=== PATIENT | female | born 1965 | race Caucasian/White ===

== ENCOUNTER 2023-04-26 08:08 | Outpatient (OUT) | payer OTHER, SELFPAY ==
--- NOTE | 2023-04-26 08:45 | MM_ITS ---
Patient: EVELIO AGUDELO Exam Date: 04/26/2023 : 1965 Gender:F Ordering : [facility]MIN[facility] Admission #: [id number] Family : Order #: [id number] CLICK HERE TO VIEW EXAM RADIOLOGY REPORT PROCEDURE: MM TOMOSYNTHESIS SCREENING BI COMPARISON: MG MAMM SCREEN 3D ANGUS CAD, 04/20/2022. MG MAMM SCREEN 3D ANGUS CAD, 04/11/2021. INDICATIONS: Screening Calculator Name NCI Breast Cancer Risk Assessment Tool 5 Year Breast Cancer Risk 1.70% Lifetime Breast Cancer Risk 10.40% Personal Breast Cancer No Personal Ovarian Cancer No Treatments None Family Cancers Brother with lung cancer at age 46; Father with brain cancer at age 40; Grandmother-paternal with lung cancer at age ~60; Grandfather-maternal with stomach cancer at age 60. LOCATION: [facility] BREAST COMPOSITION: Heterogeneously dense,which may obscure small masses. FINDINGS: DIAGNOSTIC CATEGORY 1--NEGATIVE. NO CHANGE FROM COMPARISON ASSESSMENT. Scattered benign-appearing calcifications are present. Scattered benign-appearing lymph nodes are present. RIGHT BREAST: No significant suspicious finding. Linear scar markers LEFT BREAST: No significant suspicious finding. RECOMMENDATIONS: ROUTINE MAMMOGRAM AND CLINICAL EVALUATION IN 12 MONTHS. PLEASE NOTE: A NORMAL MAMMOGRAM DOES NOT EXCLUDE THE POSSIBILITY OF BREAST CANCER. A CLINICALLY SUSPICIOUS PALPABLE LUMP SHOULD BE BIOPSIED. Dictated by: Randy Dwyer MD on 04/26/2023 at 12:56 Approved by: Randy Dwyer MD on 04/26/2023 at 12:58
== END 2023-04-26 08:09 | disposition home or self-care (01) ==
LOC: MAMMO 08:08
PROVIDERS: PCP Nurse Practitioner Family; Visit Provider Nurse Practitioner Family
DX: Z12.31 Encounter for screening mammogram for malignant neoplasm of breast (principal); Z80.1 Family history of malignant neoplasm of trachea, bronchus and lung; Z80.0 Family history of malignant neoplasm of digestive organs; Z80.8 Family history of malignant neoplasm of other organs or systems
CPT/HCPCS: 77063; 77067

== ENCOUNTER 2023-11-11 14:52 | Outpatient (OUT) | payer OTHER, SELFPAY ==
--- NOTE | 2023-11-11 15:11 | CT_ITS ---
[address] [address] Patient Name: EVELIO AGUDELO MRN: [id number] date: 1965 Sex: F Assigned Patient Location: CT Current Patient Location: CT Accession/Order Number: [id number] Exam Date: 11/11/2023 15:07 Report Date: 11/11/2023 16:26 At the request of: PADMINI VILLA Procedure: CT chest wo con EXAMINATION: CT chest wo con HISTORY: Nonspecific abnormal finding radiological exam of lung field COMPARISON: 10/24/2022 TECHNIQUE: Multi-planar CT images were created with IV contrast. Axial, Coronal, and Sagittal images. Dose reduction techniques were achieved by using automated exposure control and/or adjustment of mA and/or kV according to patient size and/or use of iterative reconstruction technique. FINDINGS: LUNGS: A few scattered punctate pulmonary nodules stable both in number and size from the prior exam with the largest measuring 7 mm along the right upper major fissure axial image 33. No new pulmonary nodule or mass PLEURA: No mass, effusion, or pneumothorax. VASCULATURE: No abnormality. PRAKASH: No mass or adenopathy. MEDIASTINUM: No mass or adenopathy. CARDIAC: No enlargement or pericardial effusion. Minimal coronary atherosclerosis AORTA: No aneurysm or dissection. CHEST WALL: No mass or axillary adenopathy. BONES: No bone lesion or fracture. LIMITED ABDOMEN: Small to moderate hiatal hernia OTHER: Negative. CT/CT chest wo con IMPRESSION: Stable subcentimeter pulmonary nodules measuring up to 7 mm Electronically authenticated by: BLAISE LUTZ Date: 11/11/2023 16:26
== END 2023-11-11 14:53 | disposition home or self-care (01) ==
LOC: CT 14:52
PROVIDERS: PCP Nurse Practitioner Family; Visit Provider Nurse Practitioner Family
DX: R91.8 Other nonspecific abnormal finding of lung field (principal); R07.89 Other chest pain
CPT/HCPCS: 71250

== ENCOUNTER 2024-02-21 09:13 | Outpatient (OUT) | payer OTHER, SELFPAY ==
[2024-02-21 09:37] LABS: Basophils Absolute Auto 0.1 10^3/uL (0.0-0.1); Basophils Percent Auto 1.1 % (0.2-2.0); Eosinophils Absolute Auto 0.2 10^3/uL (0.0-0.7); Eosinophils Percent Auto 3.3 % (0.9-7.0); Hematocrit 38.6 % (36.0-48.0); Hemoglobin 13.1 g/dL (12.0-16.0); Immature Granulocytes Abs Auto 0.01 10^3/uL (0.00-0.03); Immature Granulocytes Pct Auto 0.2 % (0.0-0.5); Lymphocytes Absolute Auto 1.4 10^3/uL (1.2-3.8); Lymphocytes Percent Auto 30.6 % (20.5-60.0); Mean Corpuscular HGB Conc 33.9 g/dL (29.9-35.2); Mean Corpuscular Hemoglobin 31.2 pg (26.7-34.0); Mean Corpuscular Volume 91.9 fL (81.0-99.0); Mean Platelet Volume 10.5 fL (9.5-13.5); Monocytes Absolute Auto 0.5 10^3/uL (0.3-0.8); Monocytes Percent Auto 11.6 % (1.7-12.0); Neutrophils Absolute Auto 2.4 10^3/uL (1.4-6.5); Neutrophils Percent Auto 53.2 % (43.0-75.0); Platelet Count 250 10^3/uL (150-450); Red Cell Distribution Width 13.2 % (11.0-15.0); White Blood Count 4.6 10^3/uL (4.0-11.0)
[2024-02-21 10:55] LABS: Alanine Aminotransferase 38 U/L (14-59); Albumin Globulin Ratio 1.1; Albumin Level 3.8 g/dL (3.4-5.0); Alkaline Phosphatase 117 U/L (46-116); Anion Gap 15.3; Aspartate Amino Transferase 21 U/L (15-37); BUN Creatinine Ratio 29.8; Bilirubin Total 0.4 mg/dL (0.2-1.0); Calcium 9.6 mg/dL (8.5-10.1); Carbon Dioxide 23.9 mmol/L (21.0-32.0); Chloride 103 mmol/L (98-107); Chol HDL Ratio 2.6; Cholesterol 161 mg/dL (<=200); Estimated GFR (African America >60 (>=60); Estimated GFR (Non-African Ame >60 (>=60); Free T3 3.04 pg/mL (2.18-3.98); Globulin 3.6 g/dL; Glucose 98 mg/dL (74-106); HDL Cholesterol 63 mg/dL (40-60); Potassium 4.2 mmol/L (3.5-5.1); Sodium 138 mmol/L (136-145); Thyroid Stimulating Hormone 1.445 uIU/mL (0.358-3.740); Total Protein 7.4 g/dL (6.4-8.2); Triglycerides 72 mg/dL (<=150); VLDL CHOLESTEROL 14.4 mg/dL
[2024-02-21 11:11] LABS: Estimated Average Glucose 94 mg/dL; Glycohemoglobin A1C 4.9 % (4.5-6.2)
[2024-02-22 04:08] LABS: Insulin 12.9 uIU/mL (2.6-24.9)
== END 2024-02-21 09:14 | disposition home or self-care (01) ==
LOC: LAB 09:15
PROVIDERS: PCP Nurse Practitioner Family; Visit Provider Nurse Practitioner Family
DX: Z00.00 Encounter for general adult medical examination without abnormal findings (principal)
CPT/HCPCS: 36415; 80053; 80061; 83036; 83525; 84436; 84443; 84481; 85025

== ENCOUNTER 2024-02-22 12:57 | Outpatient (REF) | payer OTHER, SELFPAY ==
--- OUTSIDE RECORDS SUMMARY | 2024-02-22 12:58 | XMS_ITS | CCD ---
Author Organization [facility] [employer] ion Partnership [facility] Care Team Providers Care Restaurant Shift Leader Name Role Phone VICENTE BARAKAT H. Referring Unavailable PADMINI WOODARD S Primary Care Unavailable ROSHNI, VICENTE H. Admitting Unavailable ROSHNIVICENTE H. Attending Unavailable ROSHNI, VICENTE H. Referring Unavailable VANCE PADMINI S Primary Care Unavailable PADMINI VILLA Attending Unavailable PADMINI VILLA Consulting Unavailable DAISY, PADMINI Primary Care Unavailable PADMINI VILLA Admitting Unavailable DAISY PADMINI Primary Care Unavailable AARTI ., DR FUNK Attending Unavailable HOY ., DR FUNK Consulting Unavailable HOY ., DR FUNK Admitting Unavailable Octaviano Maria Consulting Unavailable DAISY PADMINI Primary Care Unavailable FRANKLIN, DR BLAISE Lowe Consulting Unavailable PADMINI VILLA Admitting Unavailable PADMINI VILLA Attending Unavailable PADMINI VILLA Consulting Unavailable ROSA CARRION Attending Unavailable ROSA CARRION Referring Unavailable Allergies Allergy Classification Reported Allergen(s) Allergy Type Date of Onset Reaction(s) Facility (1 source) Chlorhexidine Drug Allergy 01-17-2021 [facility] Repository (1 source) traMADol Drug Allergy 05-23-2017 [facility] Repository Problems Active Problems Problem Classification Problem Date Documented Da te Episodic/Chronic Screening and history of mental health and substance abuse codes (4 sources) Personal history of nicotine dependence; Translations: [PERSONAL HISTORY OF NICOTINE DEPEND] Onset: 10-24-2022 Episodic Past or Other Problems Problem Classification Problem Date Documented Da te Episodic/Chronic Other screening for suspected conditions (not mental disorders or infectious disease) (4 sources) Encounter for screening mammogram for malignant neoplasm of breast; Translations: [ENC SCR MAMMO MALIG NEOPLASM BREAST] Onset: 04-20-2022 Episodic Residual codes; unclassified (1 source) Family history of malignant neoplasm of trachea, bronchus and lung; Translations: [FAM HX MALIG NEOPLSM TRACH BRON LNG] Onset: 04-23-2022 Episodic Residual codes; unclassified (1 source) Family history of malignant neoplasm of digestive organs; Translations: [FAM HX MALIG NEOPLASM DIGESTIV ORGN] Onset: 04-23-2022 Episodic Residual codes; unclassified (1 source) Family history of malignant neoplasm of other organs or systems; Translations: [FAM HX MALIG NEOPLASM OTH ORGN/SYS] Onset: 04-23-2022 Episodic Results Test Name Value Interpretation Reference Range Facility INSULINon 11-19-2022 Insulin 18.1 uIU/mL Normal 2.6-24.9 [facility] Comment on above: Performed By: #### I NSULIN #### [facility] Laboratory [address] [address] [address] Jeny Helms CBC AUTO DIFFon 11-17-2022 BASO # 0.1 103/ul Normal 0.0-0.1 [facility] Comment on above: Performed By: #### C BC ####[facility] [address] [address]Dr. Jeny Helms Basophils/100 WBC (Bld) 1.4 % Normal 0.2-2.0 [facility] Comment on above: Performed By: #### C BC ####[facility] [address] [address]DrLilliam Helms EO # 0.2 103/ul Normal 0.0-0.7 [facility] Comment on above: Performed By: #### C BC ####[facility] [address] [address]DrLilliam Helms Eosinophils/100 WBC (Bld) 3.8 % Normal 0.9-7.0 [facility] Comment on above: Performed By: #### C BC ####[facility] [address] [address]DrLilliam Helms Erythrocyte distribution width (RBC) [Ratio] 13.3 % Normal 11.0-15.0 [facility] Comment on above: Performed By: #### C BC ####[facility] [address] [address]Dr. Jeny Helms Hematocrit (Bld) [Volume fraction] 41.2 % Normal 36.0-48.[address] [facility] Comment on above: Performed By: #### C BC ####[facility] [address] [address]Dr. Jeny Helms Hemoglobin (Bld) [Mass/Vol] 13.5 g/dL Normal 12.0-16.0 [facility] Comment on above: Performed By: #### C BC ####[facility] [address] [address]Dr. Jeny Helms IG # 0.01 10e3/ul Normal 0.00-0.03 [facility] Comment on above: Performed By: #### C BC ####[facility] [address] [place], [place] [address]Dr. Jeny Helms IG % 0.2 % Normal 0.0-0.5 [facility] Comment on above: Performed By: #### C BC ####[facility] [address] [address]Dr. Jeny Helms LYMPH # 1.3 103/ul Normal 1.2-3.8 [facility] Comment on above: Performed By: #### C BC ####[facility] [address] [place], [place] [address]Dr. Jeny Helms Lymphocytes/100 WBC (Bld) 30.0 % Normal 20.5-60.0 [facility] Comment on above: Performed By: #### C BC ####[facility] [address] [address]Dr. Yvroselorna Helms MANUAL DIFF REQ NO Normal [facility] Comment on above: Performed By: #### C BC ####[facility] [address] [address]Dr. Yvroselorna Helms MCH (RBC) [Entitic mass] 31.4 pg Normal 26.7-34.0 [facility] Comment on above: Performed By: #### C BC ####[facility] [address] [place], [place] [address]Dr. Jeny Helms MCHC (RBC) [Mass/Vol] 32.8 g/dL Normal 29.9-35.2 [facility] Comment on above: Performed By: #### C BC ####[facility] [address] [address]Dr. Jeny Scooter MCV (RBC) [Entitic vol] 95.8 fL Normal 81.0-99.0 [facility] Comment on above: Performed By: #### C BC ####[facility] [address] [address]Dr. Jeny Scooter MONO # 0.5 103/ul Normal 0.3-0.8 [facility] Comment on above: Performed By: #### C BC ####[facility] [address] [address]Dr. Jeny Helms Monocytes/100 WBC (Bld) 10.6 % Normal 1.7-12.0 [facility] Comment on above: Performed By: #### C BC ####[facility] [address] [place], [place] [address]Dr. Jeny Helms NEUT # 2.4 103/ul Normal 1.4-6.5 [facility] Comment on above: Performed By: #### C BC ####[facility] [address] [address]Dr. Yvroselorna Helms Neutrophils/100 WBC (Bld) 54.0 % Normal 43.0-75.0 [facility] Comment on above: Performed By: #### C BC ####[facility] [address] [address]Dr. Jeny Scooter Platelet mean volume (Bld) [Entitic vol] 10.3 fL Normal 9.5-13.5 [facility] Comment on above: Performed By: #### C BC ####[facility] [address] [address]Dr. Jeny Helms PLT 258 103/ul Normal 150-450 [facility] Comment on above: Performed By: #### C BC ####[facility] [address] [address]Dr. Jeny Helms RBC 4.30 106/ul Normal 4.20-5.40 [facility] Comment on above: Performed By: #### C BC ####[facility] [address] [place], [place] [address]RiLilliam Helms WBC 4.4 103/ul Normal 4.0-11.[address] [facility] Comment on above: Performed By: #### C BC ####[facility] [address] [id number]. Jeny Helms FREE THYROXINE INDEX T7on FTI 2.72 Normal 1.30-4.50 [facility] Comment on above: Performed By: #### L IPID, T7, TSH, CMP #### [facility] [address] [address] [address] Jeny Helms T3U 32.0 % Normal 30.0-39.[address] [facility] Comment on above: Performed By: #### L IPID, T7, TSH, CMP #### [facility] [address] [address] [address] Jeny Helms T4 [Mass/Vol] 8.50 ug/dL Normal 4.80-13.[address] [facility] Comment on above: Performed By: #### L IPID, T7, TSH, CMP #### [facility] [address] [address] [address] Jeny Helms GLYCOHEMOGLOBIN A1Con 2022 ADA RECOMMENDATION SEE BELOW Normal [facility] Comment on above: Result Comment: ADA RECOMMENDED LIMIT 4.0 - 6.0 ADA THERAPEUTIC TARGET < 7.0 ACTION SUGGESTED > 7.0 Performed By: #### A 1C #### [facility] [address] [address] [address] Jeny Helms Glucose [Mass/Vol] 100 mg/dL Normal [facility] Comment on above: Performed By: #### A 1C #### [facility] [address] [address] [address] Jeny Helms HbA1c (Bld) [Mass fraction] 5.1 % Normal 4.5-6.2 [facility] Comment on above: Performed By: #### A 1C #### [facility] [address] [address] [address] Jeny Helms IRONon 11-17-2022 Iron [Mass/Vol] 96.0 ug/dL Normal 50.0-170.0 [facility] Comment on above: Performed By: #### I AUTUMN #### [facility] [address] [address] [address] Jeny Helms LIPID PROFILEon 11-17-2022 CHOL-HDL RATIO NORM SEE BELOW Normal [facility] Comment on above: Result Comment: 3.3 - 4.4 LOW RISK 4.4 - 7.1 AVERAGE RISK 7.1 - 11.0 MODERATE RISK >11.0 HIGH RISK Performed By: #### L IPID, T7, TSH, CMP #### [facility] [address] [address] [address] Jeny Helms Cholesterol [Mass/Vol] 166 mg/dL Normal <=[address] [facility] Comment on above: Performed By: #### L IPID, T7, TSH, CMP #### [facility] [address] [address] [address] Jeny Helms Cholesterol in HDL [Mass/Vol] 61 mg/dL Critically high 40-[address] [facility] Comment on above: Performed By: #### L IPID, T7, TSH, CMP #### [facility] [address] [address] [address] Jeny Helms Cholesterol in LDL [Mass/Vol] 84.0 mg/dL Normal [facility] Comment on above: Performed By: #### L IPID, T7, TSH, CMP #### [facility] [address] [address] [address] Jeny Helms Cholesterol.total/Cho lesterol in HDL [Mass ratio] 2.7 {ratio} Normal [facility] Comment on above: Performed By: #### L IPID, T7, TSH, CMP #### [facility] [address] [address] [address] Jeny Helms HDL NORMAL > or = 60 mg/dl - LOW CARDIOVASCULAR RISK <40 mg/dl - HIGH CARDIOVASCULAR RISK Normal [facility] Comment on above: Performed By: #### L IPID, T7, TSH, CMP #### [facility] [address] [address] [address] Jeny Helms LDL CALC NORMAL SEE BELOW Normal [facility] Comment on above: Result Comment: <100 mg/dl OPTIMAL 100 - 129 mg/dl NEAR OR ABOVE OPTIMAL 130 - 159 mg/dl BORDERLINE HIGH 160 - 189 mg/dl HIGH >190 mg/dl VERY HIGH Performed By: #### L IPID, T7, TSH, CMP #### [facility] [address] [address] [address] Jeny Helms Triglyceride [Mass/Vol] 105 mg/dL Normal <=[address] [facility] Comment on above: Performed By: #### L IPID, T7, TSH, CMP #### [facility] [address] [address] [address] Jeny Helms VLDL CALC 21.0 mg/dL Normal [facility] Comment on above: Performed By: #### L IPID, T7, TSH, CMP #### [facility] [address] [address] [address] Jeny Helms OCC BLD IMMUNO SCREENon 10-21 OCCULT BLOOD Negative Normal NEGATIVE [facility] Comment on above: Performed By: #### O BSCRN #### [facility] [address] [place] [address] Dr. Jeny Helms PROF 14(COMP METB)on 023 Albumin [Mass/Vol] 3.7 g/dL Normal 3.4-5.0 [facility] Comment on above: Performed By: #### L IPID, T7, TSH, CMP #### [facility] [address] [address] [address] Jeny Helms Albumin/Globulin [Mass ratio] 1.0 {ratio} Normal [facility] Comment on above: Performed By: #### L IPID, T7, TSH, CMP #### [facility] [address] [address] [address] Jeny Helms ALP [Catalytic activity/Vol] 119 U/L Critically high 46-[address] [facility] Comment on above: Performed By: #### L IPID, T7, TSH, CMP #### [facility] [address] [place] [address] Dr. Jeny Helms ALT [Catalytic activity/Vol] 43 U/L Normal 14-[address] [facility] Comment on above: Performed By: #### L IPID, T7, TSH, CMP #### [facility] [address] [place] [address] Dr. Jeny Helms Anion gap [Moles/Vol] 15.1 mmol/L Normal [facility] Comment on above: Performed By: #### L IPID, T7, TSH, CMP #### [facility] [address] [place] [address] Dr. Jeny Helms AST [Catalytic activity/Vol] 20 U/L Normal 15-[address] [facility] Comment on above: Performed By: #### L IPID, T7, TSH, CMP #### [facility] [address] [place] [address] Dr. Jeny Helms Bilirubin [Mass/Vol] 0.5 mg/dL Normal 0.2-1.[address] [facility] Comment on above: Performed By: #### L IPID, T7, TSH, CMP #### [facility] [address] [place] [address] Dr. Jeny Helms Calcium [Mass/Vol] 9.3 mg/dL Normal 8.5-10.1 [facility] Comment on above: Performed By: #### L IPID, T7, TSH, CMP #### [facility] [address] [place] [address] Dr. Jeny Helms Chloride [Moles/Vol] 105 mmol/L Normal 98-[address] [facility] Comment on above: Performed By: #### L IPID, T7, TSH, CMP #### [facility] [address] [place] [address] Dr. Jeny Helms CO2 [Moles/Vol] 25.0 mmol/L Normal 21.0-32.0 [facility] Comment on above: Performed By: #### L IPID, T7, TSH, CMP #### [facility] [address] [address] [address] Jeny Helms Creatinine [Mass/Vol] 0.77 mg/dL Normal 0.55-1.[address] [facility] Comment on above: Performed By: #### L IPID, T7, TSH, CMP #### [facility] [address] [address] [address] Jeny Helms EGFR-AF EGYPTIAN >60 Normal >=60 [facility] Comment on above: Performed By: #### L IPID, T7, TSH, CMP #### [facility] [address] [address] [address] Jeny Helms EGFR-NON AF EGYPTIAN >60 Normal >=[address] [facility] Comment on above: Performed By: #### L IPID, T7, TSH, CMP #### [facility] [address] [place] [address] Dr. Jeny Helms Globulin (S) [Mass/Vol] 3.7 g/dL Normal [facility] Comment on above: Performed By: #### L IPID, T7, TSH, CMP #### [facility] [address] [address] [address] Jeny Helms Glucose [Mass/Vol] 103 mg/dL Normal 74-106 [facility] Comment on above: Performed By: #### L IPID, T7, TSH, CMP #### [facility] [address] [address] [address] Jeny Helms Potassium [Moles/Vol] 4.1 mmol/L Normal 3.5-5.1 [facility] Comment on above: Performed By: #### L IPID, T7, TSH, CMP #### [facility] [address] [address] [address] Jeny Helms Protein [Mass/Vol] 7.4 g/dL Normal 6.4-8.2 [facility] Comment on above: Performed By: #### L IPID, T7, TSH, CMP #### [facility] [address] [address] [address] Jeny Helms Sodium [Moles/Vol] 141 mmol/L Normal 136-145 [facility] Comment on above: Performed By: #### L IPID, T7, TSH, CMP #### [facility] [address] [address] [address] Jeny Helms Urea nitrogen [Mass/Vol] 21.0 mg/dL Critically high 7.0-18.[address] [facility] Comment on above: Performed By: #### L IPID, T7, TSH, CMP #### [facility] [address] [address] [address] Jeny Helms Urea nitrogen/Creatinine [Mass ratio] 27.3 mg/mg Normal [facility] Comment on above: Performed By: #### L IPID, T7, TSH, CMP #### [facility] [address] [address] [address] Jeny Helms TSHon 11-17-2022 TSH 1.829 uIU/mL Normal 0.358-3.740 [facility] Comment on above: Performed By: #### L IPID, T7, TSH, CMP #### [facility] [address] [address] [address] LUNG CANCER SCREENINGon 0 10-25-2022 CT LUNG CANCER SCREENING EXAMINATION: CT LUNG CANCER SCREENING HISTORY: Nicotine dependence COMPARISON: No relevant comparison available. TECHNIQUE: Axial, Coronal, and Sagittal images were created without the administration of IV contrast material. Dose reduction techniques were achieved by using automated exposure control and/or adjustment of mA and/or kV according to patient size and/or use of iterative reconstruction technique. FINDINGS: LUNGS: Stable 7 mm thin nodule versus scarring within posterior medial right upper lobe adjacent major fissure, and a few scattered tiny 2 to 3 mm nodules. PLEURA: No mass, effusion, or pneumothorax. VASCULATURE: No abnormality. PRAKASH: No mass or pathologic adenopathy. MEDIASTINUM: No mass or pathologic adenopathy. CARDIAC: No enlargement, pericardial thickening, or significant calcification. AORTA: No aneurysm or dissection. CHEST WALL: No mass or axillary adenopathy BONES: No bone lesion or fracture. LIMITED ABDOMEN: Moderate size hiatal hernia. No suspicious findings. Limited images of the upper abdomen. OTHER: Negative. IMPRESSION: 1. Lung-RADS 2- Benign Appearance or Behavior. Nodules with a very low likelihood of becoming a clinically active cancer due to size or lack of growth. Follow-up CT Chest in 1 year. Electronically authenticated by: OCTAVIANO MARIA Date: 2022-10-25 08:12 Normal [facility] MG MAMM SCREEN 3D ANGUS CADon 04-20-2022 MG MAMM SCREEN 3D ANGUS CAD Patient: EDILMA AGUDELO Exam Date: 04/20/2022 : 1965 Gender:F Ordering : PADMINI VILLA [facility] Admission #: [id number] Family : DR ROSA CARRION Order #: [id number] CLICK HERE TO VIEW EXAM RADIOLOGY REPORT PROCEDURE: MAMMOGRAM SCREENING 3D BILATERAL CAD COMPARISON: MG MAMM SCREEN ANGUS W CAD, 03/24/2020. MG MAMM SCREEN 3D ANGUS CAD, 04/11/2021. INDICATIONS: Screening mammography Calculator Name NCI Breast Cancer Risk Assessment Tool 5 Year Breast Cancer Risk 1.70% Lifetime Breast Cancer Risk 10.70% Personal Breast Cancer No Personal Ovarian Cancer No Treatments None Family Cancers Brother with lung cancer at age 46; Father with brain cancer at age 40; Grandmother-paternal with lung cancer at age 60; Grandfather-maternal with stomach cancer at age 60. LOCATION: [facility] BREAST COMPOSITION: Heterogeneously dense,which may obscure small masses. FINDINGS: DIAGNOSTIC CATEGORY 1--NEGATIVE. NO CHANGE FROM COMPARISON ASSESSMENT. Scattered benign-appearing calcifications are present. Scattered benign-appearing lymph nodes are present. RIGHT BREAST: No significant suspicious finding. LEFT BREAST: No significant suspicious finding. RECOMMENDATIONS: ROUTINE MAMMOGRAM AND CLINICAL EVALUATION IN 12 MONTHS. PLEASE NOTE: A NORMAL MAMMOGRAM DOES NOT EXCLUDE THE POSSIBILITY OF BREAST CANCER. A CLINICALLY SUSPICIOUS PALPABLE LUMP SHOULD BE BIOPSIED. Dictated by: Blaise Dwyer MD on 04/20/2022 at 08:01 Approved by: Blaise Dwyer MD on 04/20/2022 at 08:[address] [facility] Urine Cultureon 05-05-2021 Bacteria identified Cx Nom (U) Reason for Exam Frequent urination;Post-void dribbling No Growth 2 Days PERFORMED BY: [address] [place] [address] PATHOLOGIST PHOTO LAB TECHNICIAN TI ROLDAN M.D. Normal [facility] Comment on above: Performed By: #### C UU #### [facility] [address] FLUORO FOR SURGICAL PROCEDUR ESon 02-05-2019 FLUORO FOR SURGICAL PROCEDURES EXAMINATION: FLUORO FOR SURGICAL PROCEDURES HISTORY: C-Spine . TECHNIQUE: FLUORO FOR SURGICAL PROCEDURES Fluoroscopic time: 15.2 seconds. COMPARISON: Cervical spine MRI 07/08/2018. RESULT: Fluoroscopic images demonstrate interval anterior fusion at C5-C6. No other significant abnormality. ----- IMPRESSION: Intraoperative imaging. Interpreted by: Andrea Medina MD Signed by: Andrea Medina MD 02/05/19 Final result Normal [facility] Surgical Specimenon 02-06-20 Surgical Specimen [facility] [address] [place], [place] [id number] FINAL SURGICAL PATHOLOGY REPORT Patient Name: EDILMA AGUDELO Accession No: [id number] Age Sex: 1965 Location: [facility] Account No: [id number] Collected: 02/05/2019 Med Rec No: [id number] Received: 02/05/2019 Attend Phys: VICENTE BARAKAT Completed: 02/06/2019 Perform Phys: VICENTE BARAKAT FINAL DIAGNOSIS: DISK TISSUE- DISK CARTILAGE WITH MARKED FRAGMENTATION AND BONE WITH MARKED REACTIVE CHANGES. JEMIMA/JEMIMA CLINICAL INFORMATION: Disc herniation, radiculopathy. SPECIMEN: Dis GROSS DESCRIPTION: Labeled Edilma Agudelo and disc tissue . In formalin are four fragments of grayish-white, somewhat scar-like type of fibrocartilage, up to 1.2 cm in length. All are submitted in toto in cassette A1. JEMIMA/LEILANI CPT: 36467 X1 LUCAS MCCARTY M.D. 02/06/2019 Electronically signed out by Page 1 of 1 [facility] Comment on above: Performed By: #### S UR #### [address] [id number] Basic Metabolic Panelon 01-19 Anion gap [Moles/Vol] 22 mmol/L Critically high 9-15 [facility] Comment on above: Performed By: #### B MP #### [facility] [address] [place] [address] Calcium [Mass/Vol] 9.6 mg/dL Normal 8.5-9.9 [facility] Comment on above: Performed By: #### B MP #### [facility] [address] [place] [address] Chloride [Moles/Vol] 101 mmol/L Normal 95-107 [facility] Comment on above: Performed By: #### B MP #### [facility] [address] [place] [address] CO2 [Moles/Vol] 18 mmol/L Low 20-31 [facility] Comment on above: Performed By: #### B MP #### [facility] [address] [place] [address] Creatinine [Mass/Vol] 0.59 mg/dL Normal 0.50-0.90 [facility] Comment on above: Performed By: #### B MP #### [facility] [address] [place] [address] GFR/1.73 sq M predicted among blacks MDRD (S/P/Bld) [Vol rate/Area] mL/min/{1.73_m2} Normal >60 [facility] Comment on above: Result Comment: >60 mL/min/1.73m2 EGFR, calc. for ages 18 and older using the MDRD formula (not corrected for weight), is valid for stable renal function. Performed By: #### B MP #### [facility] [address] [place] [address] GFR/1.73 sq M.predicted MDRD (S/P/Bld) [Vol rate/Area] mL/min/{1.73_m2} Normal >60 [facility] Comment on above: Result Comment: >60 mL/min/1.73m2 EGFR, calc. for ages 18 and older using the MDRD formula (not corrected for weight), is valid for stable renal function. Performed By: #### B MP #### [facility] [address] [place] [address] Glucose [Mass/Vol] 82 mg/dL Normal 70-99 [facility] Comment on above: Performed By: #### B MP #### [facility] [address] [place] [address] Potassium [Moles/Vol] 3.8 mmol/L Normal 3.4-4.9 [facility] Comment on above: Performed By: #### B MP #### [facility] [address] [place] [address] Sodium [Moles/Vol] 141 mmol/L Normal 135-144 [facility] Comment on above: Performed By: #### B MP #### [facility] [address] [place] [address] Urea nitrogen [Mass/Vol] 13 mg/dL Normal 6-20 [facility] Comment on above: Performed By: #### B MP #### [facility] [address] [place] [address] CBC With Platelet No Differe ntialon 01-29-2019 Erythrocyte distribution width (RBC) [Ratio] 13.8 % Normal 11.5-14.5 [facility] Comment on above: Performed By: #### C BCND #### [facility] [address] [place] [address] Hematocrit (Bld) [Volume fraction] 44.5 % Normal 37.0-47.0 [facility] Comment on above: Performed By: #### C BCND #### [facility] [address] [place] [address] Hemoglobin (Bld) [Mass/Vol] 15.3 g/dL Normal 12.0-16.0 [facility] Comment on above: Performed By: #### C BCND #### [facility] [address] [place] [address] MCH (RBC) [Entitic mass] 33.6 pg Critically high 27.0-31.3 [facility] Comment on above: Performed By: #### C BCND #### [facility] [address] [place] [address] MCHC (RBC) [Mass/Vol] 34.4 % Normal 33.0-37.0 [facility] Comment on above: Performed By: #### C BCND #### [facility] [address] [place] [address] MCV (RBC) [Entitic vol] 97.6 fL Normal 82.0-100.0 [facility] Comment on above: Performed By: #### C BCND #### [facility] [address] [place] [address] Platelets (Bld) [#/Vol] 200 10*3/uL Normal 130-400 [facility] Comment on above: Performed By: #### C BCND #### [facility] [address] [place] [address] RBC (Bld) [#/Vol] 4.56 10*6/uL Normal 4.20-5.40 [facility] Comment on above: Performed By: #### C BCND #### [facility] [address] [place] [address] WBC (Bld) [#/Vol] 6.6 10*3/uL Normal 4.8-10.8 [facility] Comment on above: Performed By: #### C BCND #### [facility] [address] [place] [address] Prothrombin Timeon 9 INR Coag (PPP) [Relative time] 0.9 {INR} Normal [facility] Comment on above: Result Comment: Warf erin Therapy INR Therapeutic: 2.0-3.0 With Mechanical Valve: >2.5 Low-intensity Therapeutic Range: 1.5-2.0 Mod-intensity Therapeutic Range: 2.0-3.0 High-intensity Therapeutic Range: 2.5-3.5 HIgh-intensity Therapeutic Range: 3.0-4.0 Common Critical/Alarm Value: 5.0 Common Upper Limit Reported: 10.0 Effective 01/29/2019: Please note reference ranges have changed. Performed By: #### P T #### [facility] [address] [place] [address] PT Coag (PPP) [Time] 12.3 s Normal 12.3-14.9 [facility] Comment on above: Result Comment: Effe ctive 01/29/19 Please note reference ranges have changed. Performed By: #### P T #### [facility] [address] [place] [address] Type and Screen Capture 3 sc rn cellon 01-29-2019 Type and Screen Capture 3 scrn cell PATIENT: MAGNUS Fernando LOC: [facility] BILL# : [id number] : 1965 SEX: F ORDERED BY: COLLEEN Villanueva ORDERED : 01/29/2019 13:45 COLLECTED: 01/29/2019 14:58 ORDER : [id number] RECEIVED : 01/29/2019 14:58 TEST NAME RESULT UNITS RANGES ABN FL ST ABORH Capture B POS F Antibody 3 Cell Scrn Captu NEG F Normal [facility] Comment on above: Performed By: #### T S3C #### [facility] [address] [place] [id number] Encounters Encounter Date Encounter Type Care Provider Facility Start: 09-20-2023 End: 09-20-2023 ambulatory ROSA Hay VISCI Not Available Start: 11-22-2022 Encounter for genera l adult medical examination without abnormal findings PADMINI VILLA [facility] Start: 11-17-2022 End: 11-18-2022 ambulatory PADMINI VILLA Facility:[facility] Start: 11-17-2022 End: 11-18-2022 Encounter for general adult medical examination without abnormal findings PADMINI VILLA Facility:[facility] Start: 10-24-2022 End: 10-25-2022 ambulatory PADMINI VILLA Facility:[facility] Start: 04-20-2022 End: 04-21-2022 ambulatory PADMINI VILLA Facility:[facility] Start: 02-05-2019 End: 02-05-2019 Patient encounter procedure VICENTE Dago. ROSHNI [facility] Start: 01-29-2019 End: 02-03-2019 Patient encounter procedure VICENTE Bri BARAKAT [facility] Procedures Date Procedure Procedure Detail Performing Clinician Start: 02-05-2019 INCENTIVE SPIROMETRY RT VICENTE ROSHNI Start: 02-05-2019 Level iv surg pathol ogy gross&microscopic exam VICENTE ROSHNI Start: 02-05-2019 INCENTIVE SPIROMETRY RT VICENTE ROSHNI Start: 02-05-2019 FLUORO FOR SURGICAL PROCEDURES VICENTE ROSHNI Start: 02-05-2019 DISCHARGE PATIENT VICENTE YO O Start: 02-05-2019 Level iv surg pathol ogy gross&microscopic exam VICENTE ROSHNI Start: 02-05-2019 INCENTIVE SPIROMETRY RT VICENTE ROSHNI Start: 02-05-2019 INITIATE OXYGEN THER APY PROTOCOL VICENTE ROSHNI Start: 02-05-2019 PULSE OXIMETRY SPOT CHECK VICENTE ROSHNI Start: 02-05-2019 Continuous pulse oximetry VICENTE ROSHNI Start: 02-05-2019 INITIATE OXYGEN THER APY PROTOCOL VICENTE ROSHNI Start: 02-05-2019 ASSESS VICENTE ROSHNI Start: 02-05-2019 BEDREST VICENTE ROSHNI Start: 02-05-2019 ENCOURAGE DEEP BREAT CAYETANO AND COUGHING VICENTE ROSHNI Start: 02-05-2019 INCENTIVE SPIROMETRY RT VICENTE ROSHNI Start: 02-05-2019 NEURO/VASCULAR CHECKS B O ROSHNI Start: 02-05-2019 NOTIFY PHYSICIAN (SPECIFY) VICENTE ROSHNI Start: 02-05-2019 NURSING COMMUNICATION B O ROSHNI Start: 02-05-2019 VITAL SIGNS VICENTE ROSHNI Start: 02-05-2019 DIET NPO, NOW VICENTE ROSHNI Start: 02-05-2019 GRADUAL COMPRESSION STOCKINGS (GRECIA) VICENTE ROSHNI Start: 02-05-2019 INITIATE OXYGEN THER APY PROTOCOL VICENTE ROSHNI Start: 02-05-2019 NOTIFY PHYSICIAN (SPECIFY) VICENTE ROSHNI Start: 02-05-2019 PLACE INTERMITTENT P NEUMATIC COMPRESSION DEVICE VICENTE ROSHNI Start: 02-05-2019 PULSE OXIMETRY SPOT CHECK VICENTE ROSHNI Start: 02-05-2019 VITAL SIGNS VICENTE ROSHNI Start: 01-29-2019 Basic metabolic pane l calcium total VICENTE ROSHNI Start: 01-29-2019 Blood count complete automated VICENTE ROSHNI Start: 01-29-2019 Prothrombin time VICENTE ROSHNI Start: 01-29-2019 TYPE AND SCREEN VICENTE ROSHNI Start: 01-29-2019 Ecg routine ecg w/le ast 12 lds w/i&r VICENTE ROSHNI Payers Date Payer Category Payer Unknown [id number] [id number] [id number] 1965 Unknown [id number] 2.16.8 [id number] 1965 Unknown [id number] 2.16.84 [id number] 1965 Unknown [id number] 2.16.84 [id number] 1965 Unknown [id number] 2.16.84 [id number] 1965 Unknown [id number] 2.16.84 [id number] 1959 Unknown [id number] 1959 Unknown [id number] Summary Purpose Family History No Family History Records FoundNo Family History Records FoundNo Family History Records FoundNo Family History Records Found Advance Directives No Advanced Directives Records FoundNo Advanced Directives Records FoundNo Advanced Directives Records FoundNo Advanced Directives Records Found Additional Source Comments INFORMATION SOURCE (unrecogn ized section and content) DATE CREATED AUTHOR 02/06/2019 [facility] DATE CREATED AUTHOR AUTHOR'S ORGANIZ ATION 05/13/2021 [facility] DATE CREATED AUTHOR AUTHOR'S ORGANIZ ATION 11/23/2022 [facility] DATE CREATED AUTHOR AUTHOR'S ORGANIZ ATION 09/22/2023 [facility] [employer] [facility] FOR RECORDS PERTAINING TO PATIENTS WHO ARE OR HAVE BEEN ENROLLED IN A CHEMICAL DEPENDENCY/SUBSTANCEABUSE PROGRAM, SOME INFORMATION MAY BE OMITTED. This clinical summary was aggregated from multiple sources. Caution should be exercised in using it in the provision of clinical care. This summary normalizes information from multiple sources, and as a consequence, information in this document may materially change the coding, format and clinical context of patient data. In addition, data may be omitted in some cases. CLINICAL DECISIONS SHOULD BE BASED ON THE PRIMARY CLINICAL RECORDS. [facility] [email or web address] provides no warranty or guarantee of the accuracy or completeness of information in this document.
[2024-02-22 18:59] LABS: Internal Control Within Normal Limits; Occult Blood Negative
== END 2024-02-22 12:58 | disposition home or self-care (01) ==
LOC: LAB 12:57
PROVIDERS: PCP Nurse Practitioner Family; Visit Provider Nurse Practitioner Family
DX: Z00.00 Encounter for general adult medical examination without abnormal findings (principal)
CPT/HCPCS: G0328

== ENCOUNTER 2024-04-09 15:23 | Outpatient (OUT) | payer OTHER, SELFPAY ==
--- NOTE | 2024-04-09 | XR_ITS ---
[address] [address] Patient Name: EVELIO AGUDELO MRN: [id number] date: 1965 Sex: F Assigned Patient Location: Current Patient Location: Accession/Order Number: [id number] Exam Date: 04/09/2024 15:24 Report Date: 04/10/2024 12:55 At the request of: JOAQUIN MARTINEZ Procedure: XR foot LT min 3V PROCEDURE: XR foot LT min 3V COMPARISON: None. HISTORY: LEFT FOOT PAIN FINDINGS: BONES:No acute fracture or dislocation. Moderate plantar enthesopathic spurring of the calcaneus. Mild degenerative changes SOFT TISSUES:Negative. No visible soft tissue swelling. EFFUSION:None visible. OTHER: Negative. XR/XR foot LT min 3V IMPRESSION: Degenerative changes Electronically authenticated by: BLAISE LUTZ Date: 04/10/2024 12:55
--- OUTSIDE RECORDS SUMMARY | 2024-04-09 15:43 | XMS_ITS | CCD ---
Author Organization [facility] Inform ion Partnership [facility] Care Team Providers Care Alcohol Still Operator Name Role Phone VICENTE BARAKAT H. Referring [...] Consulting Unavailable DAISY PADMINI Primary Care Unavailable BRACKNEY, DR BLAISE Lowe Consulting Unavailable PADMINI VILLA Admitting Unavailable PADMINI VILLA Attending Unavailable PADMINI VILLA Consulting Unavailable ROSA CARRION Attending Unavailable ROSA CARRION Referring Unavailable Allergies Allergy Classification Reported Allergen(s) Allergy Type Date of Onset Reaction(s) Facility (1 source) Chlorhexidine Drug Allergy 01-17-[address] [facility] Repository (1 source) traMADol Drug Allergy 05-23-[address] [facility] Repository Problems Active Problems Problem [...] 11-19-2022 Insulin 18.1 uIU/mL Normal 2.6-24.[address] [facility] Comment on above: Performed By: #### I NSULIN #### [facility] [address] [address] [address] Jeny Helms CBC AUTO DIFFon 11-17-2022 BASO # 0.1 103/ul Normal 0.0-0.[address] [facility] Comment on above: Performed By: #### C BC ####[facility] [address] [address]Dr. Jeny Helms Basophils/100 WBC (Bld) 1.4 % Normal 0.2-2.[address] [facility] Comment on above: Performed By: #### C BC ####[facility] [address] [address]DrLilliam Helms EO # 0.2 103/ul Normal 0.0-0.[address] [facility] Comment on above: Performed By: #### C BC ####[facility] [address] [address]DrLilliam Helms Eosinophils/100 WBC (Bld) 3.8 % Normal 0.9-7.[address] [facility] Comment on above: Performed By: #### C BC ####[facility] [address] [address]DrLilliam Helms Erythrocyte distribution width (RBC) [Ratio] 13.3 % Normal 11.0-15.[address] [facility] Comment on above: Performed By: #### C BC ####[facility] [address] [address]Dr. Jeny Helms Hematocrit (Bld) [Volume fraction] 41.2 % Normal 36.0-48.0 [facility] Comment on above: Performed By: #### C BC ####[facility] [address] [address]Dr. Jeny Helms Hemoglobin (Bld) [Mass/Vol] 13.5 g/dL Normal 12.0-16.[address] [facility] Comment on above: Performed By: #### C BC ####[facility] [address] [address]Dr. Jeny Helms IG # 0.01 10e3/ul Normal 0.00-0.[address] [facility] Comment on above: Performed By: #### C BC ####[facility] [address] [place], [place] [address]Dr. Jeny Helms IG % 0.2 % Normal 0.0-0.[address] [facility] Comment on above: Performed By: #### C BC ####[facility] [address] [address]Dr. Jeny Helms LYMPH # 1.3 103/ul Normal 1.2-3.[address] [facility] Comment on above: Performed By: #### C BC ####[facility] [address] [place], [place] [address]Dr. Jeny Helms Lymphocytes/100 WBC (Bld) 30.0 % Normal 20.5-60.[address] [facility] Comment on above: Performed By: #### C BC ####[facility] [address] [address]Dr. Yvroselorna Helms MANUAL DIFF REQ NO Normal [facility] Comment on above: Performed By: #### C BC ####[facility] [address] [address]Dr. Yvroselorna Helms MCH (RBC) [Entitic mass] 31.4 pg Normal 26.7-34.[address] [facility] Comment on above: Performed By: #### C BC ####[facility] [address] [place], [place] [address]Dr. Jeny Helms MCHC (RBC) [Mass/Vol] 32.8 g/dL Normal 29.9-35.[address] [facility] Comment on above: Performed By: #### C BC ####[facility] [address] [address]Dr. Jeny Scooter MCV (RBC) [Entitic vol] 95.8 fL Normal 81.0-99.[address] [facility] Comment on above: Performed By: #### C BC ####[facility] [address] [address]Dr. Jeny Scooter MONO # 0.5 103/ul Normal 0.3-0.[address] [facility] Comment on above: Performed By: #### C BC ####[facility] [address] [address]Dr. Jeny Helms Monocytes/100 WBC (Bld) 10.6 % Normal 1.7-12.[address] [facility] Comment on above: Performed By: #### C BC ####[facility] [address] [place], [place] [address]Dr. Jeny Helms NEUT # 2.4 103/ul Normal 1.4-6.[address] [facility] Comment on above: Performed By: #### C BC ####[facility] [address] [address]Dr. Yvroselorna Helms Neutrophils/100 WBC (Bld) 54.0 % Normal 43.0-75.[address] [facility] Comment on above: Performed By: #### C BC ####[facility] [address] [address]Dr. Jeny Scooter Platelet mean volume (Bld) [Entitic vol] 10.3 fL Normal 9.5-13.[address] [facility] Comment on above: Performed By: #### C BC ####[facility] [address] [address]Dr. Jeny Helms PLT 258 103/ul Normal 150-[address] [facility] Comment on above: Performed By: #### C BC ####[facility] [address] [address]Dr. Jeny Helms RBC 4.30 106/ul Normal 4.20-5.[address] [facility] Comment on above: Performed By: #### C BC ####[facility] [address] [place], [place] [address]DqLilliam Helms WBC 4.4 103/ul Normal 4.0-11.0 [facility] Comment on above: Performed By: #### C BC ####[facility] [address] [id number]. Jeny Helms FREE THYROXINE INDEX T7on FTI 2.72 Normal 1.30-4.[address] [facility] Comment on above: Performed By: #### L IPID, T7, TSH, CMP #### [facility] [address] [address] [address] Jeny Helms T3U 32.0 % Normal 30.0-39.0 [facility] Comment on above: Performed By: #### L IPID, T7, TSH, CMP #### [facility] [address] [address] [address] Jeny Helms T4 [Mass/Vol] 8.50 ug/dL Normal 4.80-13.90 [facility] Comment on above: Performed By: #### L IPID, T7, TSH, CMP #### [facility] [address] [address] [address] Jeny Helms GLYCOHEMOGLOBIN A1Con 2022 ADA RECOMMENDATION SEE BELOW Normal [facility] Comment on above: Result Comment: ADA RECOMMENDED LIMIT 4.0 - 6.0 ADA THERAPEUTIC TARGET < 7.0 ACTION SUGGESTED > 7.0 Performed By: #### A 1C #### [facility] [address] [address] [address] Jeny Helms Glucose [Mass/Vol] 100 mg/dL Normal [facility] Comment on above: Performed By: #### A 1C #### [facility] [address] [address] [address] Jeny Helms HbA1c (Bld) [Mass fraction] 5.1 % Normal 4.5-6.[address] [facility] Comment on above: Performed By: #### A 1C #### [facility] [address] [address] [address] Jeny Helms IRONon 11-17-2022 Iron [Mass/Vol] 96.0 ug/dL Normal 50.0-170.0 [facility] Comment on above: Performed By: #### I AUTUMN #### [facility] [address] [address] [address] Jeny Helms LIPID PROFILEon 11-17-2022 CHOL-HDL RATIO NORM SEE BELOW Normal [facility] Comment on above: Result Comment: 3.3 - 4.4 LOW RISK 4.4 - 7.1 AVERAGE RISK 7.1 - 11.0 MODERATE RISK >11.0 HIGH RISK Performed By: #### L IPID, T7, TSH, CMP #### [facility] [address] [address] [address] Jeny Helms Cholesterol [Mass/Vol] 166 mg/dL Normal <=200 [facility] Comment on above: Performed By: #### L IPID, T7, TSH, CMP #### [facility] [address] [address] [address] Jeny Helms Cholesterol in HDL [Mass/Vol] 61 mg/dL Critically high 40-60 [facility] Comment on above: Performed By: #### L IPID, T7, TSH, CMP #### [facility] [address] [address] [address] Jeny Helms Cholesterol in LDL [Mass/Vol] 84.0 mg/dL Normal [facility] Comment on above: Performed By: #### L IPID, T7, TSH, CMP #### [facility] [address] [address] [address] Jeny Helms Cholesterol.total/Cho lesterol in HDL [Mass ratio] 2.7 {ratio} Normal [facility] Comment on above: Performed By: #### L IPID, T7, TSH, CMP #### [facility] [address] [address] [address] Jeny Helms HDL NORMAL > or = 60 mg/dl - LOW CARDIOVASCULAR RISK <40 mg/dl - HIGH CARDIOVASCULAR RISK Normal [facility] Comment on above: Performed By: #### L IPID, T7, TSH, CMP #### [facility] [address] [address] [address] Jeny Helms LDL CALC NORMAL SEE BELOW Normal [facility] Comment on above: Result Comment: <100 mg/dl OPTIMAL 100 - 129 mg/dl NEAR OR ABOVE OPTIMAL 130 - 159 mg/dl BORDERLINE HIGH 160 - 189 mg/dl HIGH >190 mg/dl VERY HIGH Performed By: #### L IPID, T7, TSH, CMP #### [facility] [address] [address] [address] Jeny Helms Triglyceride [Mass/Vol] 105 mg/dL Normal <=150 [facility] Comment on above: Performed By: #### L IPID, T7, TSH, CMP #### [facility] [address] [address] [address] Jeny Helms VLDL CALC 21.0 mg/dL Normal [facility] Comment on above: Performed By: #### L IPID, T7, TSH, CMP #### [facility] [address] [address] [address] Jeny Helms OCC BLD IMMUNO SCREENon 10-21 OCCULT BLOOD Negative Normal NEGATIVE [facility] Comment on above: Performed By: #### O BSCRN #### [facility] [address] [place] [address] Dr. Jeny Helms PROF 14(COMP METB)on 023 Albumin [Mass/Vol] 3.7 g/dL Normal 3.4-5.[address] [facility] Comment on above: Performed By: #### L IPID, T7, TSH, CMP #### [facility] [address] [address] [address] Jeny Helms Albumin/Globulin [Mass ratio] 1.0 {ratio} Normal [facility] Comment on above: Performed By: #### L IPID, T7, TSH, CMP #### [facility] [address] [address] [address] Jeny Helms ALP [Catalytic activity/Vol] 119 U/L Critically high 46-116 [facility] Comment on above: Performed By: #### L IPID, T7, TSH, CMP #### [facility] [address] [place] [address] Dr. Jeny Helms ALT [Catalytic activity/Vol] 43 U/L Normal 14-59 [facility] Comment on above: Performed By: #### L IPID, T7, TSH, CMP #### [facility] [address] [place] [address] Dr. Jeny Helms Anion gap [Moles/Vol] 15.1 mmol/L Normal Th [facility] Comment on above: Performed By: #### L IPID, T7, TSH, CMP #### [facility] [address] [place] [address] Dr. Jeny Helms AST [Catalytic activity/Vol] 20 U/L Normal 15-37 [facility] Comment on above: Performed By: #### L IPID, T7, TSH, CMP #### [facility] [address] [place] [address] Dr. Jeny Helms Bilirubin [Mass/Vol] 0.5 mg/dL Normal 0.2-1.0 [facility] Comment on above: Performed By: #### L IPID, T7, TSH, CMP #### [facility] [address] [place] [address] Dr. Jeny Helms Calcium [Mass/Vol] 9.3 mg/dL Normal 8.5-10.[address] [facility] Comment on above: Performed By: #### L IPID, T7, TSH, CMP #### [facility] [address] [place] [address] Dr. Jeny Helms Chloride [Moles/Vol] 105 mmol/L Normal 98-107 [facility] Comment on above: Performed By: #### L IPID, T7, TSH, CMP #### [facility] [address] [place] [address] Dr. Jeny Helms CO2 [Moles/Vol] 25.0 mmol/L Normal 21.0-32.0 [facility] Comment on above: Performed By: #### L IPID, T7, TSH, CMP #### [facility] [address] [address] [address] Jeny Helms Creatinine [Mass/Vol] 0.77 mg/dL Normal 0.55-1.02 [facility] Comment on above: Performed By: #### L IPID, T7, TSH, CMP #### [facility] [address] [address] [address] Jeny Helms EGFR-AF [place]ORE[place] >60 Normal >=60 [facility] Comment on above: Performed By: #### L IPID, T7, TSH, CMP #### [facility] [address] [address] [address] Jeny Helms EGFR-NON AF [place]ORE[place] >60 Normal >=60 [facility] Comment on above: Performed By: #### L IPID, T7, TSH, CMP #### [facility] [address] [place] [address] Dr. Jeny Helms Globulin (S) [Mass/Vol] 3.7 g/dL Normal [facility] Comment on above: Performed By: #### L IPID, T7, TSH, CMP #### [facility] [address] [address] [address] Jeny Helms Glucose [Mass/Vol] 103 mg/dL Normal 74-[address] [facility] Comment on above: Performed By: #### L IPID, T7, TSH, CMP #### [facility] [address] [address] [address] Jeny Helms Potassium [Moles/Vol] 4.1 mmol/L Normal 3.5-5.[address] [facility] Comment on above: Performed By: #### L IPID, T7, TSH, CMP #### [facility] [address] [address] [address] Jeny Helms Protein [Mass/Vol] 7.4 g/dL Normal 6.4-8.2 [facility] Comment on above: Performed By: #### L IPID, T7, TSH, CMP #### [facility] [address] [address] [address] Jeny Helms Sodium [Moles/Vol] 141 mmol/L Normal 136-[address] [facility] Comment on above: Performed By: #### L IPID, T7, TSH, CMP #### [facility] [address] [address] [address] Jeny Helms Urea nitrogen [Mass/Vol] 21.0 mg/dL Critically high 7.0-18.0 [facility] Comment on above: Performed By: #### L IPID, T7, TSH, CMP #### [facility] [address] [address] [address] Jeny Helms Urea nitrogen/Creatinine [Mass ratio] 27.3 mg/mg Normal [facility] Comment on above: Performed By: #### L IPID, T7, TSH, CMP #### [facility] [address] [address] [address] Jeny Helms TSHon 11-17-2022 TSH 1.829 uIU/mL Normal 0.358-3.740 [facility] Comment on above: Performed By: #### L IPID, T7, TSH, CMP #### [facility] [address] [address] [address] LUNG CANCER SCREENINGon [...] OCTAVIANO MARIA Date: 2022-10-25 08:[address] [facility] MG MAMM SCREEN 3D ANGUS CADon 04-20-2022 MG MAMM SCREEN 3D ANGUS CAD Patient: EDILMA AGUDELO Exam Date: 04/20/2022 : 1965 Gender:F Ordering : PADMINI VILLA [facility] Admission #: [id number] Family : DR ROSA CARRION Order #: [id number] CLICK HERE TO VIEW EXAM RADIOLOGY REPORT [...] stomach cancer at age 60. LOCATION: [facility] BREAST COMPOSITION: Heterogeneously dense,which may [...] Dwyer MD on 04/20/2022 at 08:07 Normal [facility] Urine Cultureon 05-05-2021 Bacteria identified Cx Nom (U) Reason for Exam Frequent urination;Post-void dribbling No Growth 2 Days PERFORMED BY: [address] [place] [address] PATHOLOGIST UTILITY REPAIRER TI ROLDAN M.D. Normal [facility] Comment on above: Performed By: #### C UU #### [facility] [address] FLUORO FOR SURGICAL PROCEDUR ESon 02-05-2019 [...] Andrea Medina MD 02/05/19 Final result Normal [facility] Surgical Specimenon 02-06-[address] [facility] [address] [place], [place] [id number] FINAL SURGICAL PATHOLOGY REPORT Patient Name: EDILMA AGUDELO Accession No: [id number] Age Sex: 1965 Location: [facility] Account No: [id number] Collected: 02/05/2019 Med Rec No: [id number] Received: 02/05/2019 Attend Phys: VICENTE BARAKAT Completed: [...] in toto in cassette A1. JEMIMA/LEILANI CPT: 91974 X1 LUCAS MCCARTY M.D. 02/06/2019 Electronically signed out by Page 1 of 1 [facility] Comment on above: Performed By: #### S UR #### [address] [id number] Basic Metabolic Panelon 01-19 Anion gap [Moles/Vol] 22 mmol/L Critically high 9-15 [facility] Comment on above: Performed By: #### B MP #### [facility] [address] [place] [address] Calcium [Mass/Vol] 9.6 mg/dL Normal 8.5-9.9 [facility] Comment on above: Performed By: #### B MP #### [facility] [address] [place] [address] Chloride [Moles/Vol] 101 mmol/L Normal 95-107 [facility] Comment on above: Performed By: #### B MP #### [facility] [address] [place] [address] CO2 [Moles/Vol] 18 mmol/L Low 20-31 [facility] Comment on above: Performed By: #### B MP #### [facility] [address] [place] [address] Creatinine [Mass/Vol] 0.59 mg/dL Normal 0.50-0.90 [facility] Comment on above: Performed By: #### B MP #### [facility] [address] [place] [address] GFR/1.73 sq M predicted among blacks MDRD (S/P/Bld) [Vol rate/Area] mL/min/{1.73_m2} Normal >60 [facility] Comment on above: Result Comment: >60 mL/min/1.73m2 EGFR, calc. for ages 18 and older using the MDRD formula (not corrected for weight), is valid for stable renal function. Performed By: #### B MP #### [facility] [address] [place] [address] GFR/1.73 sq M.predicted MDRD (S/P/Bld) [Vol rate/Area] mL/min/{1.73_m2} Normal >60 [facility] Comment on above: Result Comment: >60 mL/min/1.73m2 EGFR, calc. for ages 18 and older using the MDRD formula (not corrected for weight), is valid for stable renal function. Performed By: #### B MP #### [facility] [address] [place] [address] Glucose [Mass/Vol] 82 mg/dL Normal 70-99 [facility] Comment on above: Performed By: #### B MP #### [facility] [address] [place] [address] Potassium [Moles/Vol] 3.8 mmol/L Normal 3.4-4.9 [facility] Comment on above: Performed By: #### B MP #### [facility] [address] [place] [address] Sodium [Moles/Vol] 141 mmol/L Normal 135-144 [facility] Comment on above: Performed By: #### B MP #### [facility] [address] [place] [address] Urea nitrogen [Mass/Vol] 13 mg/dL Normal 6-20 [facility] Comment on above: Performed By: #### B MP #### [facility] [address] [place] [address] CBC With Platelet No Differe ntialon 01-29-2019 Erythrocyte distribution width (RBC) [Ratio] 13.8 % Normal 11.5-14.5 [facility] Comment on above: Performed By: #### C BCND #### [facility] [address] [place] [address] Hematocrit (Bld) [Volume fraction] 44.5 % Normal 37.0-47.0 [facility] Comment on above: Performed By: #### C BCND #### [facility] [address] [place] [address] Hemoglobin (Bld) [Mass/Vol] 15.3 g/dL Normal 12.0-16.0 [facility] Comment on above: Performed By: #### C BCND #### [facility] [address] [place] [address] MCH (RBC) [Entitic mass] 33.6 pg Critically high 27.0-31.3 [facility] Comment on above: Performed By: #### C BCND #### [facility] [address] [place] [address] MCHC (RBC) [Mass/Vol] 34.4 % Normal 33.0-37.0 [facility] Comment on above: Performed By: #### C BCND #### [facility] [address] [place] [address] MCV (RBC) [Entitic vol] 97.6 fL Normal 82.0-100.0 [facility] Comment on above: Performed By: #### C BCND #### [facility] [address] [place] [address] Platelets (Bld) [#/Vol] 200 10*3/uL Normal 130-400 [facility] Comment on above: Performed By: #### C BCND #### [facility] [address] [place] [address] RBC (Bld) [#/Vol] 4.56 10*6/uL Normal 4.20-5.40 [facility] Comment on above: Performed By: #### C BCND #### [facility] [address] [place] [address] WBC (Bld) [#/Vol] 6.6 10*3/uL Normal 4.8-10.8 [facility] Comment on above: Performed By: #### C BCND #### [facility] [address] [place] [address] Prothrombin Timeon 9 INR Coag (PPP) [Relative time] 0.9 {INR} Normal [facility] Comment on above: Result Comment: Warf erin Therapy INR Therapeutic: 2.0-3.0 With Mechanical Valve: >2.5 Low-intensity Therapeutic Range: 1.5-2.0 Mod-intensity Therapeutic Range: 2.0-3.0 High-intensity Therapeutic Range: 2.5-3.5 HIgh-intensity Therapeutic Range: 3.0-4.0 Common Critical/Alarm Value: 5.0 Common Upper Limit Reported: 10.0 Effective 01/29/2019: Please note reference ranges have changed. Performed By: #### P T #### [facility] [address] [place] [address] PT Coag (PPP) [Time] 12.3 s Normal 12.3-14.9 [facility] Comment on above: Result Comment: Effe ctive 01/29/19 Please note reference ranges have changed. Performed By: #### P T #### [facility] [address] [place] [address] Type and Screen Capture 3 sc rn cellon 01-29-2019 Type and Screen Capture 3 scrn cell PATIENT: MAGNUS Fernando LOC: [facility] BILL# : [id number] : 1965 SEX: F ORDERED BY: COLLEEN Villanueva ORDERED : 01/29/2019 13:45 COLLECTED: 01/29/2019 14:58 ORDER : [id number] RECEIVED : 01/29/2019 14:58 TEST NAME RESULT UNITS RANGES ABN FL [facility] Capture B POS F Antibody 3 Cell Scrn Captu NEG F Normal [facility] Comment on above: Performed By: #### T S3C #### [facility] [address] [place] [id number] Encounters Encounter Date Encounter Type Care Provider Facility Start: 09-20-2023 End: 09-20-2023 ambulatory ROSA Hay [facility]ISCI Not Available Start: 11-22-2022 Encounter for genera l adult medical examination without abnormal findings PADMINI VILLA [facility] Start: 11-17-2022 End: 11-18-2022 ambulatory PADMINI VILLA Facility:[facility] Start: 11-17-2022 End: 11-18-2022 Encounter for general adult medical examination without abnormal findings PADMINI VILLA Facility:[facility] Start: 10-24-2022 End: 10-25-2022 ambulatory PADMINI VILLA Facility:[facility] Start: 04-20-2022 End: 04-21-2022 ambulatory PADMINI VILLA Facility:[facility] Start: 02-05-2019 End: 02-05-2019 Patient encounter procedure VICENTE Dago. ROSHNI [facility] Start: 01-29-2019 End: 02-03-2019 Patient encounter procedure VICENTE Bri BARAKAT [facility] Procedures Date Procedure Procedure Detail Performing Clinician [...] ROSHNI Payers Date Payer Category Payer Unknown [id number] 2.16.8 [id number] 1965 Unknown [id number] 2.16.8 [id number] 1965 Unknown [id number] 2.16.84 [id number] 1965 Unknown [id number] 2.16.84 [id number] 1965 Unknown [id number] 2.16.84 [id number] 1965 Unknown [id number] 2.16.84 [id number] 1959 Unknown [id number] 1959 Unknown [id number] Summary Purpose Family History No Family History Records FoundNo Family History Records FoundNo Family History Records FoundNo Family History Records Found Advance Directives No Advanced Directives Records FoundNo Advanced Directives Records FoundNo Advanced Directives Records FoundNo Advanced Directives Records Found Additional Source Comments INFORMATION SOURCE (unrecogn ized section and content) DATE CREATED AUTHOR 02/06/2019 [facility] DATE CREATED AUTHOR AUTHOR'S ORGANIZ ATION 05/13/2021 [facility] DATE CREATED AUTHOR AUTHOR'S ORGANIZ ATION 11/23/2022 [facility] DATE CREATED AUTHOR AUTHOR'S ORGANIZ ATION 09/22/2023 [facility] FOR RECORDS PERTAINING TO PATIENTS WHO [...] BE BASED ON THE PRIMARY CLINICAL RECORDS. [facility] [employer] provides no warranty or guarantee of the accuracy or completeness of information in this document.
== END 2024-04-09 15:24 | disposition home or self-care (01) ==
LOC: EC 15:23
PROVIDERS: PCP Nurse Practitioner Family; Visit Provider Physician Assistant
DX: M79.672 Pain in left foot (principal); M77.32 Calcaneal spur, left foot
CPT/HCPCS: 73630

== ENCOUNTER 2024-06-05 14:53 | Outpatient (OUT) | payer OTHER, SELFPAY ==
--- NOTE | 2024-06-05 14:58 | XR_ITS ---
[address] [address] Patient Name: EVELIO AGUDELO MRN: [id number] date: 1965 Sex: F Assigned Patient Location: [facility] Current Patient Location: Accession/Order Number: [id number] Exam Date: 06/05/2024 15:05 Report Date: 06/06/2024 06:35 At the request of: PADMINI VILLA Procedure: XR DEXA axial skeleton EXAMINATION: XR DEXA axial skeleton HISTORY: Osteopenia COMPARISON: DEXA bone densitometry 03/21/2018 TECHNIQUE: Dual-energy X-ray absorptiometry (DXA) was performed. FINDINGS: SPINE ANALYSIS: Average bone mineral density is 0.926 g/cm2. T-score (standard deviation relative to young adult mean): -2.1 . -0.7% change since prior study. HIP ANALYSIS: Lowest bone mineral density is within the left femoral neck, 0.72 g/cm2. T-score (standard deviation relative to young adult mean): -1.8 . -1.1% change since prior study. XR/XR DEXA axial skeleton IMPRESSION: World Health Organization Classification: Osteopenia - Moderate Fracture Risk FRAX: Cannot be calculated. Pharmacologic treatment recommendations * No uniform recommendation applies to all patients. Management plans must be individualized. * Consider initiating pharmacologic treatment in postmenopausal women and men >= 50 years of age who have the following: Primary fracture prevention: * T-score <= - 2.5 at the femoral neck, total hip, lumbar spine, 33% radius (some uncertainty with existing data) by DXA. * Low bone mass (osteopenia: T-score between - 1.0 and - 2.5) at the femoral neck or total hip by DXA with a 10-year hip fracture risk >= 3% or a 10-year major osteoporosis-related fracture risk >= 20% (i.e., clinical vertebral, hip, forearm, or proximal humerus) based on the [place]-adapted FRAXregistered model. Secondary fracture prevention: * Fracture of the hip or vertebra regardless of BMD [4, 5]. * Fracture of proximal humerus, pelvis, or distal forearm in persons with low bone mass (osteopenia: T-score between - 1.0 and - 2.5). The decision to treat should be individualized in persons with a fracture of the proximal humerus, pelvis, or distal forearm who do not have osteopenia or low BMD [12, 13]. Miroslava MS, Darci SL, Ralph KL, Sarai EM, Jung KG, AJ, Shelly ES. The clinician's guide to prevention and treatment of osteoporosis. Osteoporos Int. 2021;33(10):2035-7094. doi: 10.1007/p73327-488-34667-i. Epub 2021Nov 16. Erratum in: Osteoporos Int. 2021Feb 15;: PMID: [id number]; PMCID: [id number]. Electronically authenticated by: IJEOMA PATEL Date: 06/06/2024 06:35
--- OUTSIDE RECORDS SUMMARY | 2024-06-05 15:05 | XMS_ITS | CCD ---
Author Organization [facility] Care Team Providers Care Vice President Business Development Name Role Phone ROSHNI, VICENTE H. Referring Unavailable VANCE, TAMMIE S Primary Care Unavailable ROSHNI, VICENTE H. Admitting Unavailable ROSHNI, VICENTE H. Attending Unavailable ROSHNI, VICENTE H. Referring Unavailable VANCE, TAMMIE S Primary Care Unavailable TAMMIE VILLA Attending Unavailable TAMMIE VILLA Consulting Unavailable DAISY, TAMMIE Primary Care Unavailable DAISY, TAMMIE Admitting Unavailable DAISY, TAMMIE Primary Care Unavailable AARTI ., DR FUNK Attending Unavailable DARLEENY ., DR FUNK Consulting Unavailable AARTI ., DR FUNK Admitting Unavailable Octaviano Maria Consulting Unavailable DAISY TAMMIE Primary Care Unavailable [place], DR BLAISE Lowe Consulting Unavailable DAISY, TAMMIE Admitting Unavailable TAMMIE VILLA Attending Unavailable TAMMIE VILLA Consulting Unavailable ROSA CARRION Attending Unavailable ROSA CARRION Referring Unavailable DO Debo Padilla Attending Provider ANTONIO Villa Primary Care Provider Debo Padilla Attending Unavailable Debo Padilla Admitting Unavailable Tammie Villa Primary Care Unavailable Allergies Allergy Classification Reported Allergen(s) Allergy Type Date of Onset Reaction(s) Facility (2 sources) Chlorhexidine Drug Allergy 01-17-2021 [facility] (2 sources) traMADol Drug Allergy 05-23-2017 [facility] (2 sources) Isopropyl Alcohol; Translations: [isopropyl alcohol] Drug Allergy 05-01-2024 [facility] (1 source) Chlorhexidine Drug Allergy 05-01-2024 [facility] (1 source) traMADol Drug Allergy 05-01-2024 [facility] Medications Current Medications Medication Drug Class(es) Dates Sig (Normalized) Sig (Original) atorvastatin 40 mg oral tablet (2 sources) HMG-CoA Reductase Inhibitor Start: 04-17-2024 take 40 mg by mouth once daily Atorvastatin Active 40 MG PO Daily April 17, 2024 12:00am irbesartan 150 mg oral tablet (2 sources) Angiotensin 2 Receptor Erich Start: 04-17-2024 take 150 mg by mouth once daily Irbesartan Active 150 MG PO Daily April 17, 2024 12:00am meloxicam 15 mg oral tablet (2 sources) Nonsteroidal Anti-inflammatory Drug Start: 04-17-2024 take 15 mg by mouth once daily Meloxicam Active 15 MG PO Daily April 17, 2024 12:00am omeprazole 40 mg delayed release oral capsule (3 sources) Proton Pump Inhibitor Start: 04-17-2024 End: 05-01-2024 take 40 mg by mouth once daily Omeprazole Active 40 MG PO Daily May 01, 2024 12:00am Problems Active Problems Problem Classification Problem Date Documented Da te Episodic/Chronic Abdominal pain (3 sources) Indigestion; Translations: [Epigastric pain] 04-17-2024 Episodic Esophageal disorders (2 sources) Gastroesophageal reflux disease; Translations: [Gastro-esophageal reflux disease without esophagitis] 04-17-2024 Chronic Other gastrointestinal disorders (2 sources) Dysphagia; Translations: [Dysphagia, unspecified] 04-17-2024 Episodic Other gastrointestinal disorders (2 sources) Dysphagia, unspecified; Translations: [Dysphagia, unspecified] 04-17-2024 Episodic Other screening for suspected conditions (not mental disorders or infectious disease) (8 sources) Encounter for screening mammogram for malignant neoplasm of breast; Translations: [Patient encounter status] Onset: 2 Episodic Residual codes; unclassified (2 sources) Family history of malignant neoplasm of digestive organs; Translations: [Family history of malignant neoplasm of gastrointestinal tract] Onset: 2 04-17-2024 Episodic Residual codes; unclassified (2 sources) Family history of cancer of colon; Translations: [Family history of malignant neoplasm of digestive organs] 04-17-2024 Episodic Screening and history of mental health and substance abuse codes (4 sources) Personal history of nicotine dependence; Translations: [PERSONAL HISTORY OF NICOTINE DEPEND] Onset: 3 Episodic Past or Other Problems Problem Classification Problem Date Documented Da te Episodic/Chronic Residual codes; unclassified (1 source) Family history of malignant neoplasm of trachea, bronchus and lung; Translations: [FAM HX MALIG NEOPLSM TRACH BRON LNG] Onset: 04-23-2022 Episodic Residual codes; unclassified (1 source) Family history of malignant neoplasm of other organs or systems; Translations: [FAM HX MALIG NEOPLASM OTH ORGN/SYS] Onset: 04-23-2022 Episodic Results Test Name Value Interpretation Reference Range Facility Pathology Request for Lab Co rpon 05-01-2024 Pathology Request for Lab [place] Normal [facility] Comment on above: Order Comment: PATHO LOGY GI SPECIMEN Result Comment: See report. Scanned copy available in EMR. PERFORMED BY: [place] [address] PATHOLOGIST OB/GYN DOCTOR TI ROLDAN M.D. Performed By: #### P ATH TO [facility] #### [address] INSULINon 11-19-2022 Insulin 18.1 uIU/mL Normal 2.6-24.9 [facility] Comment on above: Performed By: #### I NSULIN #### [facility] [address] [address] [address] Jeny Helms CBC AUTO DIFFon 11-17-2022 BASO # 0.1 103/ul Normal 0.0-0.1 [facility] Comment on above: Performed By: #### C BC ####[facility] [address] [address]DrLilliam Helms Basophils/100 WBC (Bld) 1.4 % Normal 0.2-2.0 [facility] Comment on above: Performed By: #### C BC ####[facility] [address] [id number] Helms EO # 0.2 103/ul Normal 0.0-0.7 [facility] Comment on above: Performed By: #### C BC ####[facility] [address] [phone] Helms Eosinophils/100 WBC (Bld) 3.8 % Normal 0.9-7.0 [facility] Comment on above: Performed By: #### C BC ####[facility] [address] [address]Dr. Jeny Helms Erythrocyte distribution width (RBC) [Ratio] 13.3 % Normal 11.0-15.0 [facility] Comment on above: Performed By: #### C BC ####[facility] [address] [address]Dr. Jeny Helms Hematocrit (Bld) [Volume fraction] 41.2 % Normal 36.0-48.0 [facility] Comment on above: Performed By: #### C BC ####[facility] [address] [place], [place] [address]Dr. Jeny Helms Hemoglobin (Bld) [Mass/Vol] 13.5 g/dL Normal 12.0-16.0 [facility] Comment on above: Performed By: #### C BC ####[facility] [address] [place], [place] [address]Dr. Jeny Helms IG # 0.01 10e3/ul Normal 0.00-0.03 [facility] Comment on above: Performed By: #### C BC ####[facility] [address] [place], [place] [address]Dr. Jeny Helms IG % 0.2 % Normal 0.0-0.5 [facility] Comment on above: Performed By: #### C BC ####[facility] [address] [place], [place] [address]Dr. Jeny Hlems LYMPH # 1.3 103/ul Normal 1.2-3.8 [facility] Comment on above: Performed By: #### C BC ####[facility] [address] [place], [place] [address]Dr. Jeny Helms Lymphocytes/100 WBC (Bld) 30.0 % Normal 20.5-60.0 [facility] Comment on above: Performed By: #### C BC ####[facility] [address] [place], [place] [address]Dr. Jeny Helms MANUAL DIFF REQ NO Normal [facility] Comment on above: Performed By: #### C BC ####[facility] [address] [id number]. Jeny Scooter MCH (RBC) [Entitic mass] 31.4 pg Normal 26.7-34.0 [facility] Comment on above: Performed By: #### C BC ####[facility] [address] [phone]. Jeny Scooter MCHC (RBC) [Mass/Vol] 32.8 g/dL Normal 29.9-35.2 [facility] Comment on above: Performed By: #### C BC ####[facility] [address] [address]Dr. Jeny Helms MCV (RBC) [Entitic vol] 95.8 fL Normal 81.0-99.0 [facility] Comment on above: Performed By: #### C BC ####[facility] [address] [place], [place] [address]Dr. Jeny Helms MONO # 0.5 103/ul Normal 0.3-0.8 [facility] Comment on above: Performed By: #### C BC ####[facility] [address] [place], [place] [address]Dr. Jeny Helms Monocytes/100 WBC (Bld) 10.6 % Normal 1.7-12.0 [facility] Comment on above: Performed By: #### C BC ####[facility] [address] [place], [place] [address]Dr. Jeny Helms NEUT # 2.4 103/ul Normal 1.4-6.5 [facility] Comment on above: Performed By: #### C BC ####[facility] [address] [place], [place] [address]DrLilliam Helms Neutrophils/100 WBC (Bld) 54.0 % Normal 43.0-75.0 [facility] Comment on above: Performed By: #### C BC ####[facility] [address] [place], [place] [address]DrLilliam Helms Platelet mean volume (Bld) [Entitic vol] 10.3 fL Normal 9.5-13.5 [facility] Comment on above: Performed By: #### C BC ####[facility] [address] [id number]. Jeny Helms PLT 258 103/ul Normal 150-450 [facility] Comment on above: Performed By: #### C BC ####[facility] [address] [phone]. Jeny Helms RBC 4.30 106/ul Normal 4.20-5.40 [facility] Comment on above: Performed By: #### C BC ####[facility] [address] [phone]. Jeny Helms WBC 4.4 103/ul Normal 4.0-11.0 [facility] Comment on above: Performed By: #### C BC ####[facility] [address] [id number]. Jeny Helms FREE THYROXINE INDEX T7on FTI 2.72 Normal 1.30-4.50 [facility] Comment on above: Performed By: #### L IPID, T7, TSH, CMP #### [facility] [address] [address] [address] Jeny Helms T3U 32.0 % Normal 30.0-39.0 [facility] Comment on above: Performed By: #### L IPID, T7, TSH, CMP #### [facility] [address] [address] [address] Jeny Helms T4 [Mass/Vol] 8.50 ug/dL Normal 4.80-13.90 [facility] Comment on above: Performed By: #### L IPID, T7, TSH, CMP #### [facility] [address] [address] [address] Jeny Helms GLYCOHEMOGLOBIN A1Con 2022 ADA RECOMMENDATION SEE BELOW Normal [facility] Comment on above: Result Comment: ADA RECOMMENDED LIMIT 4.0 - 6.0 ADA THERAPEUTIC TARGET < 7.0 ACTION SUGGESTED > 7.0 Performed By: #### A 1C #### [facility] [address] [address] [address] Jeny Helms Glucose [Mass/Vol] 100 mg/dL Normal [facility] Comment on above: Performed By: #### A 1C #### [facility] [address] [place] [address] Dr. eJny Helms HbA1c (Bld) [Mass fraction] 5.1 % Normal 4.5-6.2 [facility] Comment on above: Performed By: #### A 1C #### [facility] [address] [place] [address] Dr. Jeny Helms IRONon 11-17-2022 Iron [Mass/Vol] 96.0 ug/dL Normal 50.0-170.0 [facility] Comment on above: Performed By: #### I AUTUMN #### [facility] [address] [place] [address] Dr. Jeny Helms LIPID PROFILEon 11-17-2022 CHOL-HDL RATIO NORM SEE BELOW Normal [facility] Comment on above: Result Comment: 3.3 - 4.4 LOW RISK 4.4 - 7.1 AVERAGE RISK 7.1 - 11.0 MODERATE RISK >11.0 HIGH RISK Performed By: #### L IPID, T7, TSH, CMP #### [facility] [address] [place] [address] Dr. Jeny Helms Cholesterol [Mass/Vol] 166 mg/dL Normal <=200 [facility] Comment on above: Performed By: #### L IPID, T7, TSH, CMP #### [facility] [address] [address] [address] Jeny Helms Cholesterol in HDL [Mass/Vol] 61 mg/dL Critically high 40-60 [facility] Comment on above: Performed By: #### L IPID, T7, TSH, CMP #### [facility] [address] [address] [address] Jeny Helms Cholesterol in LDL [Mass/Vol] 84.0 mg/dL Normal [facility] Comment on above: Performed By: #### L IPID, T7, TSH, CMP #### [facility] [address] [address] [address] Jeny Helms Cholesterol.total/Cho lesterol in HDL [Mass ratio] 2.7 {ratio} Normal [facility] Comment on above: Performed By: #### L IPID, T7, TSH, CMP #### [facility] [address] [address] [address] Jeny Helms HDL NORMAL > or = 60 mg/dl - LOW CARDIOVASCULAR RISK <40 mg/dl - HIGH CARDIOVASCULAR RISK Normal [facility] Comment on above: Performed By: #### L IPID, T7, TSH, CMP #### [facility] [address] [address] [address] Jeny Helms LDL CALC NORMAL SEE BELOW Normal [facility] Comment on above: Result Comment: <100 mg/dl OPTIMAL 100 - 129 mg/dl NEAR OR ABOVE OPTIMAL 130 - 159 mg/dl BORDERLINE HIGH 160 - 189 mg/dl HIGH >190 mg/dl VERY HIGH Performed By: #### L IPID, T7, TSH, CMP #### [facility] [address] [address] [address] Jeny Helms Triglyceride [Mass/Vol] 105 mg/dL Normal <=150 [facility] Comment on above: Performed By: #### L IPID, T7, TSH, CMP #### [facility] [address] [address] [address] Jeny Helms VLDL CALC 21.0 mg/dL Normal [facility] Comment on above: Performed By: #### L IPID, T7, TSH, CMP #### [facility] [address] [address] [address] Jeny Helms OCC BLD IMMUNO SCREENon 10-21 OCCULT BLOOD Negative Normal NEGATIVE [facility] Comment on above: Performed By: #### O BSCRN #### [facility] [address] [place] [address] Dr. Jeny Helms PROF 14(COMP METB)on 023 Albumin [Mass/Vol] 3.7 g/dL Normal 3.4-5.0 [facility] Comment on above: Performed By: #### L IPID, T7, TSH, CMP #### [facility] [address] [address] [address] Jeny Helms Albumin/Globulin [Mass ratio] 1.0 {ratio} Normal [facility] Comment on above: Performed By: #### L IPID, T7, TSH, CMP #### [facility] [address] [address] [address] Jeny Hemls ALP [Catalytic activity/Vol] 119 U/L Critically high 46-116 [facility] Comment on above: Performed By: #### L IPID, T7, TSH, CMP #### [facility] [address] [address] [address] Jeny Helms ALT [Catalytic activity/Vol] 43 U/L Normal 14-59 [facility] Comment on above: Performed By: #### L IPID, T7, TSH, CMP #### [facility] [address] [place] [address] Dr. Jeny Helms Anion gap [Moles/Vol] 15.1 mmol/L Normal [facility] Comment on above: Performed By: #### L IPID, T7, TSH, CMP #### [facility] [address] [place] [address] Dr. Jeny Helms AST [Catalytic activity/Vol] 20 U/L Normal 15-37 [facility] Comment on above: Performed By: #### L IPID, T7, TSH, CMP #### [facility] [address] [address] [address] Jeny Helms Bilirubin [Mass/Vol] 0.5 mg/dL Normal 0.2-1.0 [facility] Comment on above: Performed By: #### L IPID, T7, TSH, CMP #### [facility] [address] [place] [address] Dr. Jeny Helms Calcium [Mass/Vol] 9.3 mg/dL Normal 8.5-10.1 [facility] Comment on above: Performed By: #### L IPID, T7, TSH, CMP #### [facility] [address] [address] [address] Jeny Helms Chloride [Moles/Vol] 105 mmol/L Normal 98-107 [facility] Comment on above: Performed By: #### L IPID, T7, TSH, CMP #### [facility] [address] [address] [address] Jeny Helms CO2 [Moles/Vol] 25.0 mmol/L Normal 21.0-32.[address] [facility] Comment on above: Performed By: #### L IPID, T7, TSH, CMP #### [facility] [address] [place] [address] Dr. Jeny Helms Creatinine [Mass/Vol] 0.77 mg/dL Normal 0.55-1.02 [facility] Comment on above: Performed By: #### L IPID, T7, TSH, CMP #### [facility] [address] [place] [address] Dr. Jeny Helms EGFR-AF TAIWANESE >60 Normal >=60 [facility] Comment on above: Performed By: #### L IPID, T7, TSH, CMP #### [facility] [address] [place] [address] Dr. Jeny Helms EGFR-NON AF TAIWANESE >60 Normal >=60 [facility] Comment on above: Performed By: #### L IPID, T7, TSH, CMP #### [facility] [address] [place] [address] Dr. Jeny Helms Globulin (S) [Mass/Vol] 3.7 g/dL Normal [facility] Comment on above: Performed By: #### L IPID, T7, TSH, CMP #### [facility] [address] [place] [address] Dr. Jeny Helms Glucose [Mass/Vol] 103 mg/dL Normal 74-106 [facility] Comment on above: Performed By: #### L IPID, T7, TSH, CMP #### [facility] [address] [place] [address] Dr. Jeny Helms Potassium [Moles/Vol] 4.1 mmol/L Normal 3.5-5.1 [facility] Comment on above: Performed By: #### L IPID, T7, TSH, CMP #### [facility] [address] [address] [address] Jeny Helms Protein [Mass/Vol] 7.4 g/dL Normal 6.4-8.2 [facility] Comment on above: Performed By: #### L IPID, T7, TSH, CMP #### [facility] [address] [address] [address] Jeny Helms Sodium [Moles/Vol] 141 mmol/L Normal 136-145 [facility] Comment on above: Performed By: #### L IPID, T7, TSH, CMP #### [facility] [address] [address] [address] Jeny Helms Urea nitrogen [Mass/Vol] 21.0 mg/dL Critically high 7.0-18.0 [facility] Comment on above: Performed By: #### L IPID, T7, TSH, CMP #### [facility] [address] [place] [address] Dr. Jeny Helms Urea nitrogen/Creatinine [Mass ratio] 27.3 mg/mg Normal [facility] Comment on above: Performed By: #### L IPID, T7, TSH, CMP #### [facility] [address] [address] [address] Jeny Helms TSHon 11-17-2022 TSH 1.829 uIU/mL Normal 0.358-3.740 [facility] Comment on above: Performed By: #### L IPID, T7, TSH, CMP #### [facility] [address] [place] [address] LUNG CANCER SCREENINGon [...] OCTAVIANO MARIA Date: 2022-10-25 08:12 Normal [facility] MAMM SCREEN 3D ANGUS CADon 04-20-2022 MG MAMM SCREEN 3D ANGUS CAD Patient: EDILMA AGUDELO Exam Date: 04/20/2022 : 1965 Gender:F Ordering : TAMMIE VILLA [facility] Admission #: [id number] Family : DR ROSA CARRION Order #: [id number] CLICK HERE TO VIEW EXAM RADIOLOGY REPORT [...] stomach cancer at age 60. LOCATION: [facility] BREAST COMPOSITION: Heterogeneously dense,which may obscure small [...] Dwyer MD on 04/20/2022 at 08:07 [facility] FLUORO FOR SURGICAL PROCEDUR ESon 02-05-2019 FLUORO FOR SURGICAL PROCEDURES EXAMINATION: FLUORO FOR SURGICAL PROCEDURES HISTORY: C-Spine . TECHNIQUE: FLUORO FOR SURGICAL PROCEDURES Fluoroscopic time: 15.2 seconds. COMPARISON: Cervical spine MRI 07/08/2018. RESULT: Fluoroscopic images demonstrate interval anterior fusion at C5-C6. No other significant abnormality. ----- IMPRESSION: Intraoperative imaging. Interpreted by: Andrea Medina MD Signed by: Andrea Medina MD 02/05/19 Final result Normal [facility] Surgical Specimenon 02-06-20 Surgical Specimen [facility] [address] [place] [address] FINAL SURGICAL PATHOLOGY REPORT Patient Name: EDILMA AGUDELO Accession No: [id number] Age Sex: 1965 [facility] No: [id number] Collected: 02/05/2019 Med Rec No: [id number] Received: 02/05/2019 Attend Phys: VICENTE BARAKAT Completed: [...] in toto in cassette A1. JEMIMA/LEILANI CPT: 40855 X1 LUCAS MCCARTY M.D. 02/06/2019 Electronically signed out by Page 1 of 1 [facility] Comment on above: Performed By: #### S UR #### [address] [address] Basic Metabolic Panelon 01-19 Anion gap [Moles/Vol] 22 mmol/L Critically high 9-15 [facility] Comment on above: Performed By: #### B MP #### [facility] [address] [place] [address] Calcium [Mass/Vol] 9.6 mg/dL Normal 8.5-9.9 [facility] Comment on above: Performed By: #### B MP #### [facility] [address] [place] [address] Chloride [Moles/Vol] 101 mmol/L Normal 95-107 [facility] Comment on above: Performed By: #### B MP #### [facility] [address] [place] [address] CO2 [Moles/Vol] 18 mmol/L Low 20-31 [facility] Comment on above: Performed By: #### B MP #### [facility] [address] [place] [address] Creatinine [Mass/Vol] 0.59 mg/dL Normal 0.50-0.90 [facility] Comment on above: Performed By: #### B MP #### [facility] [address] [place] [address] GFR/1.73 sq M predicted among blacks MDRD (S/P/Bld) [Vol rate/Area] mL/min/{1.73_m2} Normal >60 [facility] Comment on above: Result Comment: >60 mL/min/1.73m2 EGFR, calc. for ages 18 and older using the MDRD formula (not corrected for weight), is valid for stable renal function. Performed By: #### B MP #### [facility] [address] [place] [address] GFR/1.73 sq M.predicted MDRD (S/P/Bld) [Vol rate/Area] mL/min/{1.73_m2} Normal >60 [facility] Comment on above: Result Comment: >60 mL/min/1.73m2 EGFR, calc. for ages 18 and older using the MDRD formula (not corrected for weight), is valid for stable renal function. Performed By: #### B MP #### [facility] [address] [place] [address] Glucose [Mass/Vol] 82 mg/dL Normal 70-99 [facility] Comment on above: Performed By: #### B MP #### [facility] [address] [place] [address] Potassium [Moles/Vol] 3.8 mmol/L Normal 3.4-4.9 [facility] Comment on above: Performed By: #### B MP #### [facility] [address] [place] [address] Sodium [Moles/Vol] 141 mmol/L Normal 135-144 [facility] Comment on above: Performed By: #### B MP #### [facility] [address] [place] [address] Urea nitrogen [Mass/Vol] 13 mg/dL Normal 6-20 [facility] Comment on above: Performed By: #### B MP #### [facility] [address] [place] [address] CBC With Platelet No Differe ntialon 01-29-2019 Erythrocyte distribution width (RBC) [Ratio] 13.8 % Normal 11.5-14.5 [facility] Comment on above: Performed By: #### C BCND #### [facility] [address] [place] [address] Hematocrit (Bld) [Volume fraction] 44.5 % Normal 37.0-47.0 [facility] Comment on above: Performed By: #### C BCND #### [facility] [address] [place] [address] Hemoglobin (Bld) [Mass/Vol] 15.3 g/dL Normal 12.0-16.0 [facility] Comment on above: Performed By: #### C BCND #### [facility] [address] [place] [address] MCH (RBC) [Entitic mass] 33.6 pg Critically high 27.0-31.3 [facility] Comment on above: Performed By: #### C BCND #### [facility] [address] [place] [address] MCHC (RBC) [Mass/Vol] 34.4 % Normal 33.0-37.0 [facility] Comment on above: Performed By: #### C BCND #### [facility] [address] [place] [address] MCV (RBC) [Entitic vol] 97.6 fL Normal 82.0-100.0 [facility] Comment on above: Performed By: #### C BCND #### [facility] [address] [place] [address] Platelets (Bld) [#/Vol] 200 10*3/uL Normal 130-400 [facility] Comment on above: Performed By: #### C BCND #### [facility] [address] [place] [address] RBC (Bld) [#/Vol] 4.56 10*6/uL Normal 4.20-5.40 [facility] Comment on above: Performed By: #### C BCND #### [facility] [address] [place] [address] WBC (Bld) [#/Vol] 6.6 10*3/uL Normal 4.8-10.8 [facility] Comment on above: Performed By: #### C BCND #### [facility] [address] [place] [address] Prothrombin Timeon 9 INR Coag (PPP) [Relative time] 0.9 {INR} Normal [facility] Comment on above: Result Comment: Warf erin Therapy INR Therapeutic: 2.0-3.0 With Mechanical Valve: >2.5 Low-intensity Therapeutic Range: 1.5-2.0 Mod-intensity Therapeutic Range: 2.0-3.0 High-intensity Therapeutic Range: 2.5-3.5 HIgh-intensity Therapeutic Range: 3.0-4.0 Common Critical/Alarm Value: 5.0 Common Upper Limit Reported: 10.0 Effective 01/29/2019: Please note reference ranges have changed. Performed By: #### P T #### [facility] [address] [place] [address] PT Coag (PPP) [Time] 12.3 s Normal 12.3-14.9 [facility] Comment on above: Result Comment: Effe ctive 01/29/19 Please note reference ranges have changed. Performed By: #### P T #### [facility] [address] [place] [address] Type and Screen Capture 3 sc rn cellon 01-29-2019 Type and Screen Capture 3 scrn cell PATIENT: MAGNUS Fernando LOC: [facility] BILL# : [id number] : 1965 SEX: F ORDERED BY: COLLEEN Villanueva ORDERED : 01/29/2019 13:45 COLLECTED: 01/29/2019 14:58 ORDER : [id number] RECEIVED : 01/29/2019 14:58 TEST NAME RESULT UNITS RANGES ABN FL ST ABORH Capture B POS F Antibody 3 Cell Scrn Captu NEG F Normal [facility] Comment on above: Performed By: #### T S3C #### [facility] [address] [place] [address] Vital Signs Date Time Vital Sign Value Performing Clinician Faci lity 05-01-2024 11:35-0400 Diastolic blood pressure 92 mm[Hg] SOFTWARE QUALITY MANAGER-C Tammie Daisy Work Phone: [facility] 05-01-2024 11:35-0400 Heart rate 76 /min SOFTWARE QUALITY MANAGER-C Tammie Daisy Work Phone: [facility] 05-01-2024 11:35-0400 Respiratory rate 16 /min SOFTWARE QUALITY MANAGER-C Tammie Daisy Work Phone: [facility] 05-01-2024 11:35-0400 SaO2% (BldA) [Mass fraction] 98 % SOFTWARE QUALITY MANAGER-C Tammie Daisy Work Phone: [facility] 05-01-2024 11:35-0400 Systolic blood pressure 138 mm[Hg] SOFTWARE QUALITY MANAGER-C Tammie Daisy Work Phone: [facility] 05-01-2024 09:07-0400 Body height 160.02 cm SOFTWARE QUALITY MANAGER-C Tammie Daisy Work Phone: [facility] 05-01-2024 09:07-0400 Body temperature 98.1 [degF] SOFTWARE QUALITY MANAGER-C Tammiejessica Carbajalmer Work Phone: [facility] 05-01-2024 09:07-0400 Body weight 88.45 kg SOFTWARE QUALITY MANAGER-C Tammiejessica Villa Work Phone: [facility] 04-17-2024 09:40-0400 Body height 160.02 cm [facility] 04-17-2024 09:40-0400 Body mass index (BMI) [Ratio] 34.5 kg/m2 [facility] 04-17-2024 09:40-0400 Body weight 88.45 kg [facility] Encounters Encounter Date Encounter Type Care Provider Facility Start: 05-01-2024 Non-patient / Non-visit SOFTWARE QUALITY MANAGER-C Tammie Daisy Work Phone: [facility] Work Phone: Start: 05-01-2024 End: 05-01-2024 Admission to same day surgery center SOFTWARE QUALITY MANAGER-C Tammiejessica Villa Work Phone: [facility] Work Phone: Start: 05-01-2024 End: 05-01-2024 ambulatory SOFTWARE QUALITY MANAGER-C Tammie Villa Work Phone: [facility] Work Phone: Start: 04-17-2024 End: 04-17-2024 ambulatory [facility] Work Phone: Start: 04-17-2024 End: 04-17-2024 Patient encounter procedure [facility] Work Phone: Start: 09-20-2023 End: 09-20-2023 ambulatory ROSA Hay VISCI Not Available Start: 11-22-2022 Encounter for genera l adult medical examination without abnormal findings TAMMIE VILLA [facility] Start: 11-17-2022 End: 11-18-2022 ambulatory TAMMIE VILLA Facility:[facility] Start: 11-17-2022 End: 11-18-2022 Encounter for general adult medical examination without abnormal findings TAMMIE VILLA Facility:[facility] Start: 10-24-2022 End: 10-25-2022 ambulatory TAMMIE VILLA Facility:[facility] Start: 04-20-2022 End: 04-21-2022 ambulatory TAMMIE VILLA Facility:[facility] Start: 02-05-2019 End: 02-05-2019 Patient encounter procedure VICENTE Dago. [facility] Start: 01-29-2019 End: 02-03-2019 Patient encounter procedure VICENTE . [facility] Procedures Date Procedure Procedure Detail Performing Clinician Start: 05-01-2024 Esophagogastroduodenoscopy SOFTWARE QUALITY MANAGER-C Tammie ch Work Phone: Start: 02-05-2019 INCENTIVE SPIROMETRY RT VICENTE ROSHNI Start: 02-05-2019 Level iv surg pathology gross&microscopic exam VICENTE ROSHNI Start: 02-05-2019 INCENTIVE SPIROMETRY RT VICENTE ROSHNI Start: 02-05-2019 FLUORO FOR SURGICAL PROCEDURES VICENTE ROSHNI Start: 02-05-2019 DISCHARGE PATIENT VICENTE ROSHNI Start: 02-05-2019 Level iv surg pathology gross&microscopic exam VICENTE ROSHNI Start: 02-05-2019 INCENTIVE SPIROMETRY RT VICENTE ROSHNI Start: 02-05-2019 INITIATE OXYGEN THERAPY PROTOCOL VICENTE ROSHNI Start: 02-05-2019 PULSE OXIMETRY SPOT CHECK VICENTE ROSHNI Start: 02-05-2019 Continuous pulse oximetry VICENTE ROSHNI Start: 02-05-2019 INITIATE OXYGEN THERAPY PROTOCOL VICENTE ROSHNI Start: 02-05-2019 ASSESS VICENTE ROSHNI Start: 02-05-2019 BEDREST VICENTE ROSHNI Start: 02-05-2019 ENCOURAGE DEEP BREATHING AND COUGHING VICENTE ROSHNI Start: 02-05-2019 INCENTIVE SPIROMETRY RT VICENTE ROSHNI Start: 02-05-2019 NEURO/VASCULAR CHECKS VICENTE ROSHNI Start: 02-05-2019 NOTIFY PHYSICIAN (SPECIFY) VICENTE ROSHNI Start: 02-05-2019 NURSING COMMUNICATION VICENTE ROSHNI Start: 02-05-2019 VITAL SIGNS VICENTE ROSHNI Start: 02-05-2019 DIET NPO, NOW VICENTE ROSHNI Start: 02-05-2019 GRADUAL COMPRESSION STOCKINGS (GRECIA) VICENTE Y OO Start: 02-05-2019 INITIATE OXYGEN THERAPY PROTOCOL VICENTE ROSHNI Start: 02-05-2019 NOTIFY PHYSICIAN (SPECIFY) VICENTE ROSHNI Start: 02-05-2019 PLACE INTERMITTENT PNEUMATIC COMPRESSION DEVICE VICENTE ROSHNI Start: 02-05-2019 PULSE OXIMETRY SPOT CHECK VICENTE ROSHNI Start: 02-05-2019 VITAL SIGNS VICENTE ROSHNI Start: 01-29-2019 Basic metabolic panel calcium total VICENTE Y OO Start: 01-29-2019 Blood count complete automated VICENTE ROSHNI Start: 01-29-2019 Prothrombin time VICENTE ROSHNI Start: 01-29-2019 TYPE AND SCREEN VICENTE ROSHNI Start: 01-29-2019 Ecg routine ecg w/least 12 lds w/i&r VICENTE ROSHNI Plan of Treatment Date Care Activity Detail Author Start: 05-01-2024 [facility] Patient Education Hemorrhoids (D C) Diverticulosis (DC) Hiatal Hernia (DC) Colon Polypectomy (DC) Know your Meds [facility] Work Phone: Payers Date Payer Category Payer Self-pay [id number] 1965 Unknown [id number] 2.16.8 [id number] 1965 Unknown [id number] 2.16.8 [id number] 1965 Unknown [id number] 2.16.84 [id number] 1965 Unknown [id number] 2.16.84 [id number] 1965 Unknown [id number] 2.16.84 [id number] 1965 Unknown [id number] 2.16.84 [id number] 1959 Unknown [id number] 1959 Unknown [id number] Unknown [id number] 2.16.8 [id number] Social History Date Type Detail Facility Start: 04-17-2024 Tobacco smoking stat [facility] Never smoked tobacco (finding) [facility] Start: 1965 Sex Assigned At Female F [facility] Start: 05-01-2024 Tobacco smoking stat [facility] Ex-smoker (finding) [facility] Goals Date Patient Goal Desired Activity /State History and physical note 05-01-2024 Note Date & Type Note Facility 05-01-2024 History and physical note Note Date/Time May 01, 2024 9:59am [facility] [address] [place] [address] Gastroenterology H&P Signed Patient: Edilma Agudelo MR#: [id number] : 1965 Acct:[id number] Age/Sex: 58 / F Adm Date: 4 Loc: Room: Type: [facility] Attending Dr: Debo Padilla DO Copies to: Debo Padilla, DO Tammie Villa CNP~ Date of Service: 05/01/2024 HISTORY & PHYSICAL: Patient's history with special attention to the cardiovascular, pulmonary systems and the current problem was reviewed with the patient immediately prior to the procedure. Present medications and doses reviewed in the EMR. Allergies and pertinent laboratory tests were also reviewedat this time in the EMR. The physical examination, as below, was then performed. Indication, assessment and HPI: 58-year-old female who presents for EGD and colonoscopy for dysphagia, GERD, screening. Last colonoscopy about 8 years ago. Family history of GI malignancy? Family history of gastric cancer in her maternal grandfather. PHYSICAL EXAMINATION General appearance: cooperative, NAD Skin: No jaundice, no rash or lesions Head: NCAT Eyes: Anicteric Neck: Supple Lungs: Normal respiratory effort, no use of accessory muscles Abdomen: Soft, nondistended Neuro: No focal deficits, Ox3. REVIEW OF SYSTEMS Constitutional: Denies malaise, fevers Cardiovascular: Denies chest pain, palpitations Respiratory: Denies shortness of breath, wheezing Gastrointestinal: As per HPI Genitourinary: Denies dysuria, polyuria Musculoskeletal: Denies joint swelling, joint stiffness Neurological: Denies confusion, numbness, tingling Endocrine: Denies fatigue Written informed consent obtained from the [patient]. Risks (including but not limited to perforation, infection, bloating, bleeding, need for emergent surgery and loss of life), benefits and alternatives explained and questions answered. The [patient] verbalized understanding. Based on history patient is an appropriate candidate for the procedure. Debo Padilla DO Present medication and doses reviewed in the EMR Documented By: Debo Padilla DO 05/01/24 0958 Signed By: <Electronically signed by Debo Padilla DO> 05/01/24 1028 [facility] Work Phone: Procedure note 05-01-2024 Note Date & Type Note Facility 05-01-2024 Procedure note [facility] Procedure note 05-01-2024 Note Date & Type Note Facility 05-01-2024 Procedure note [facility] Evaluation note Note Date & Type Note Facility Evaluation note Diagnosis Onset Date Dyspepsia acute Dysphagia acute Encounter for screening colonoscopy acute Family history of colon cancer acute [facility] Work Phone: Evaluation note Note Date & Type Note Facility Evaluation note Diagnosis Onset Date Dysphagia acute Encounter for screening colonoscopy acute GERD (gastroesophageal reflux disease) acute [facility] Work Phone: Hospital Discharge instructions Note Date & Type Note Facility Hospital Discharge instructions Additional Instructions DISCHARGE INSTRUCTIONS FOR UPPER ENDOSCOPY WHAT TO EXPECT: - You may feel full, gassy or cramping after your procedure. In some cases, this may be from a few hours to a day. Walking may help relieve the discomfort. - Your throat may feel sore today from the scope that the doctor passed through your throat to visualize your stomach. Take a throat lozenge or suck on ice to ease the discomfort. - You may notice some streaks of blood in your sputum if the doctor has taken a biopsy. - You should begin to recover from anesthesia within 1 hour of the procedure, however may feel groggy for the next 24 hours. DO's AND DON'Ts: - Call your doctor right away if you have a hard abdomen, severe pain, vomiting or if you cough up large amounts of blood. - Call your doctor if you develop any rashes, hives or difficulty breathing. - If you take 81 mg aspirin for your heart it is safe to resume this medication. - If you take other blood thinner medications your doctor will instruct you when these can safely be resumed. - Do NOT drive for 24 hours. - Do NOT operate machinery such as power tools, [employer] mowers, [employer] blowers, sewing machines, etc. for 24 hours. - Avoid alcoholic beverages and drugs for allergies, nerves, or sleep. - Do NOT stay alone. Do NOT leave your child unattended. - Do NOT make important personal or business decisions or sign any legal documents. - Eat solid foods and drink liquids in smaller amounts than usual until normal appetite returns. If you should experience an upset stomach, liquids high in sugar content (soda, Silvano-Aid, non-acid juices) are recommended. - Do NOT smoke. - Do take it easy today. You need not stay in bed, but avoid strenuous activities such as jogging or working out. DISCHARGE INSTRUCTIONS FOR COLONOSCOPY WHAT TO EXPECT: - You may feel full, gassy or cramping after your procedure. In some cases, this may be from a few hours to a day. Walking may help relieve the discomfort. - If you have polyp(s) removed you may note some minor bloody discharge after your first bowel movements. - You should begin to recover from anesthesia within 1 hour of the procedure, however may feel groggy for the next 24 hours. DO's AND DON'Ts: - Call your doctor right away if you have a hard abdomen, sever pain, are passing lots of bright red blood or clots. - Call your doctor if you develop any rashes, hives or difficulty breathing. - Let your doctor know if you have not had a bowel movement by 3 days after your procedure. - If you take 81 mg aspirin for your heart it is safe to resume this medication. - If you take other blood thinner medications your doctor will instruct you when these can safely be resumed. - Do NOT drive for 24 hours. - Do NOT operate machinery such as power tools, lawn mowers, snow blowers, sewing machines, etc. for 24 hours. - Avoid alcoholic beverages and drugs for allergies, nerves, or sleep. - Do NOT stay alone. Do NOT leave your child unattended. - Do NOT make important personal or business decisions or sign any legal documents. - Eat solid foods and drink liquids in smaller amounts than usual until normal appetite returns. If you should experience an upset stomach, liquids high in sugar content (soda, Silvano-Aid, non-acid juices) are recommended. - You can resume normal activities tomorrow. FOLLOW UP & RECOMMENDATIONS: -Please call the office and make a follow up appointment to see me if symptoms persist. -Notify the doctor if you have any problems. -Repeat colonoscopy in 5 years. -Follow up with PCP. - Office number [phone]. [facility] Work Phone: Summary Purpose Family History No Family History Records Found Relationship Condition Age at Onset Recorded Date/T miguelina father Malignant neoplasm of lung Unknown brother Malignant neoplasm of lung Unknown paternal grandmother Malignant neoplasm of lung Unknow n maternal grandfather Malignant neoplasm of stomach Unk nown mother Hypertension Unknown Advance Directives No Advanced Directives Records Found Advance Directive Response Recorded Date/ Time Advance Directives No May 12, 2021 7:36am Chief Complaint and Reason for Visit Chief Complaint Refer mary ellen Valentine nsult GERD Reason for Visit Dyspepsia Dysphagia Encounter for screening colonoscopy Family history of colon cancer Chief Complaint Refer mary ellen Valentine nsult GERD Screening, fm hx of colon cancer, GERD Screening, fm hx of colon cancer, GERD Reason for Visit Dysphagia Encounter for screening colonoscopy GERD (gastroesophageal reflux disease) Additional Source Comments INFORMATION SOURCE (unrecogn ized section and content) DATE CREATED AUTHOR 02/06/2019 [facility] DATE CREATED AUTHOR AUTHOR'S ORGANIZ ATION 11/23/2022 [facility] DATE CREATED AUTHOR AUTHOR'S ORGANIZ ATION 09/22/2023 [facility] EPIC DATE CREATED AUTHOR AUTHOR'S ORGANIZ ATION 05/09/2024 [facility] Care Teams (unrecognized sec tion and content) Team Status: Active Member Role Status Dates PHYSICIAN NO FAMILY Primary Care Provider Active Team Status: Inactive Member Role Status Dates PHYSICIAN NO FAMILY Primary Care Provider Active Start: April 17, 2024 End: April 17, 2024 Debo L Ly , DO Attending Provider Active St art: April 17, 2024 End: April 17, 2024 Tammie Villa SOFTWARE QUALITY MANAGER-C Referring Provider Active Start: April 17, 2024 End: April 17, 2024 Team Status: Active Member Role Status Dates Tammie Villa SOFTWARE QUALITY MANAGER-C Primary Care Provider Active Team Status: Inactive Member Role Status Dates Debo L Ly , DO Attending Provider Active St art: May 01, 2024 End: May 01, 2024 Tammie Villa SOFTWARE QUALITY MANAGER-C Primary Care Provider Active Start: May 01, 2024 End: May 01, 2024 Team Status: Active Member Role Status Dates Debo L Ly , DO Attending Provider, Other Provider Active Start: May 01, 2024 Tammie Villa SOFTWARE QUALITY MANAGER-C Primary Care Provider Active Start: May 01, 2024 Goals (unrecognized section and content) Goals may be documented in a n alternate section FOR RECORDS PERTAINING TO PATIENTS WHO ARE [...] BE BASED ON THE PRIMARY CLINICAL RECORDS. [employer] provides no warranty or guarantee of the accuracy or completeness of information in this document.
== END 2024-06-05 14:54 | disposition home or self-care (01) ==
LOC: RAD 14:53
PROVIDERS: PCP Nurse Practitioner Family; Visit Provider Nurse Practitioner Family
DX: M85.80 Other specified disorders of bone density and structure, unspecified site (principal)
CPT/HCPCS: 77080

== ENCOUNTER 2024-08-10 15:58 | Outpatient (OUT) | payer OTHER, SELFPAY ==
--- NOTE | 2024-08-10 | XR_ITS ---
The [address] [address] Patient Name: EVELIO AGUDELO MRN: [id number] date: 1965 Sex: F Assigned Patient Location: [facility] Current Patient Location: [facility] Accession/Order Number: [id number] Exam Date: 08/10/2024 16:15 Report Date: 08/11/2024 11:42 At the request of: PADMINI VILLA Procedure: XR thoracic spine 3V EXAMINATION: XR thoracic spine 3V HISTORY: back pain M54.9 . COMPARISON: CT chest 11/11/2023 FINDINGS: BONES: Mild loss of height and slight sclerosis involving superior endplate of T4; new compared to prior study. Chronic degenerative endplate changes involving the contiguous surfaces of T5-6 and T11-12. DISC SPACES: Multilevel slight narrowing. PARASPINOUS: Negative. No paraspinous abnormality is seen. OTHER: Negative. XR/XR thoracic spine 3V IMPRESSION: 1. Suspect acute to subacute mild compression fracture of T4. 2. Stable mild degenerative changes. Electronically authenticated by: IJEOMA PATEL Date: 08/11/2024 11:42
--- NOTE | 2024-08-10 | XR_ITS ---
The [address] [address] Patient Name: EVELIO AGUDELO MRN: [id number] date: 1965 Sex: F Assigned Patient Location: [facility] Current Patient Location: Accession/Order Number: [id number] Exam Date: 08/10/2024 16:15 Report Date: 08/11/2024 11:39 At the request of: PADMINI VILLA Procedure: XR ribs RT 2V EXAMINATION: XR ribs RT 2V HISTORY: back pain M54.9 COMPARISON: XR chest 06/19/2021 FINDINGS: LUNGS: Trace amount stranding and small opacities within lateral left lung base/costophrenic angle. PLEURA: No pneumothorax, effusion, or pleural thickening. MEDIASTINUM: No visible mass or adenopathy. CARDIAC: No cardiomegaly or cardiac silhouette abnormality. RIBS: No significant arthropathy or acute abnormality. OTHER: Negative. XR/XR ribs RT 2V IMPRESSION: 1. No appreciable rib abnormality. 2. Trace amount of lingular infiltrates versus atelectasis. Electronically authenticated by: IJEOMA PATEL Date: 08/11/2024 11:39
--- OUTSIDE RECORDS SUMMARY | 2024-08-10 16:02 | XMS_ITS | CCD ---
Author Organization [facility] CliniSymi Care Team Providers Care Wire Brusher Name Role Phone ROSHNI, VICENTE H. Referring [...] Consulting Unavailable DAISY TAMMIE Primary Care Unavailable BECKET, DR BLAISE Lowe Consulting Unavailable DAISY, TAMMIE Admitting Unavailable TAMMIE VILLA Attending Unavailable TAMMIE VILLA Consulting Unavailable ROSA CARRION Attending Unavailable ROSA CARRION Referring Unavailable DO Debo Padilla Attending Provider [phone] ANTONIO Villa Primary Care Provider [phone] Debo Padilla Attending Unavailable Debo Padilla Admitting Unavailable Tammie Villa Primary Care Unavailable Allergies Allergy Classification Reported Allergen(s) Allergy Type Date of Onset Reaction(s) Facility (2 sources) Chlorhexidine Drug Allergy 01-17-2021 Rash [facility] Repository (2 sources) traMADol Drug Allergy 05-23-2017 Hives [facility] Repository (2 sources) Isopropyl Alcohol; Translations: [isopropyl alcohol] Drug Allergy 05-01-2024 [facility] (1 source) Chlorhexidine Drug Allergy 05-01-2024 [facility] Repository (1 source) traMADol Drug Allergy 05-01-2024 [facility] Repository Medications Current Medications Medication Drug Class(es) [...] Pathology Request for Lab [place] Normal [facility] Comment on above: Order Comment: PATHO LOGY GI SPECIMEN Result Comment: See report. Scanned copy available in EMR. PERFORMED BY: [place] [address] PATHOLOGIST CONSTRUCTION SITE CROSSING GUARD TI ROLDAN M.D. Performed By: #### P ATH TO [facility] #### [address] INSULINon 11-19-2022 Insulin 18.1 uIU/mL Normal 2.6-24.9 [facility] Comment on above: Performed By: #### I NSULIN #### [facility] [address] [address] [address] Jeny Helms CBC AUTO DIFFon 11-17-2022 BASO # 0.1 103/ul Normal 0.0-0.1 [facility] Comment on above: Performed By: #### C BC ####[facility] [address] [address]DrLilliam Helms Basophils/100 WBC (Bld) 1.4 % Normal 0.2-2.0 [facility] Comment on above: Performed By: #### C BC ####[facility] [address] [id number] Helms EO # 0.2 103/ul Normal 0.0-0.7 [facility] Comment on above: Performed By: #### C BC ####[facility] [address] [address]DrLillima Helms Eosinophils/100 WBC (Bld) 3.8 % Normal 0.9-7.0 [facility] Comment on above: Performed By: #### C BC ####[facility] [address] [address]Dr. Jeny Helms Erythrocyte distribution width (RBC) [Ratio] 13.3 % Normal 11.0-15.0 [facility] Comment on above: Performed By: #### C BC ####[facility] [address] [address]Dr. Jeny Helms Hematocrit (Bld) [Volume fraction] 41.2 % Normal 36.0-48.0 [facility] Comment on above: Performed By: #### C BC ####[facility] [address] [place], [place] [address]Dr. Jeny Helms Hemoglobin (Bld) [Mass/Vol] 13.5 g/dL Normal 12.0-16.0 [facility] Comment on above: Performed By: #### C BC ####[facility] [address] [place], [place] [address]Dr. Jeny Helms IG # 0.01 10e3/ul Normal 0.00-0.03 [facility] Comment on above: Performed By: #### C BC ####[facility] [address] [place], [place] [address]Dr. Jeny Helms IG % 0.2 % Normal 0.0-0.5 [facility] Comment on above: Performed By: #### C BC ####[facility] [address] [place], [place] [address]Dr. Jeny Helms LYMPH # 1.3 103/ul Normal 1.2-3.8 [facility] Comment on above: Performed By: #### C BC ####[facility] [address] [place], [place] [address]Dr. Jeny Helms Lymphocytes/100 WBC (Bld) 30.0 % Normal 20.5-60.0 [facility] Comment on above: Performed By: #### C BC ####[facility] [address] [place], [place] [address]Dr. Jeny Helms MANUAL DIFF REQ NO Normal [facility] Comment on above: Performed By: #### C BC ####[facility] [address] [id number]. Jeny Scooter MCH (RBC) [Entitic mass] 31.4 pg Normal 26.7-34.0 [facility] Comment on above: Performed By: #### C BC ####[facility] [address] [address]Dr. Jeny Scooter MCHC (RBC) [Mass/Vol] 32.8 g/dL Normal 29.9-35.2 [facility] Comment on above: Performed By: #### C BC ####[facility] [address] [address]Dr. Jeny Helms MCV (RBC) [Entitic vol] 95.8 fL Normal 81.0-99.0 [facility] Comment on above: Performed By: #### C BC ####[facility] [address] [place], [place] [address]Dr. Jeny Helms MONO # 0.5 103/ul Normal 0.3-0.8 [facility] Comment on above: Performed By: #### C BC ####[facility] [address] [place], [place] [address]Dr. Jeny Helms Monocytes/100 WBC (Bld) 10.6 % Normal 1.7-12.0 [facility] Comment on above: Performed By: #### C BC ####[facility] [address] [place], [place] [address]Dr. Jeny Helms NEUT # 2.4 103/ul Normal 1.4-6.5 [facility] Comment on above: Performed By: #### C BC ####[facility] [address] [place], [place] [address]DrLilliam Helms Neutrophils/100 WBC (Bld) 54.0 % Normal 43.0-75.0 [facility] Comment on above: Performed By: #### C BC ####[facility] [address] [place], [place] [address]DrLilliam Helms Platelet mean volume (Bld) [Entitic vol] 10.3 fL Normal 9.5-13.5 [facility] Comment on above: Performed By: #### C BC ####[facility] [address] [address]Dr. Jeny Helms PLT 258 103/ul Normal 150-450 [facility] Comment on above: Performed By: #### C BC ####[facility] [address] [address]Dr. Jeny Helms RBC 4.30 106/ul Normal 4.20-5.40 [facility] Comment on above: Performed By: #### C BC ####[facility] [address] [address]Dr. Jeny Helms WBC 4.4 103/ul Normal 4.0-11.0 [facility] Comment on above: Performed By: #### C BC ####[facility] [address] [address]Dr. Jeny Helms FREE THYROXINE INDEX T7on FTI 2.72 Normal 1.30-4.50 [facility] Comment on above: Performed By: #### L IPID, T7, TSH, CMP #### [facility] [address] [address] [address] Jeny Helms T3U 32.0 % Normal 30.0-39.0 [facility] Comment on above: Performed By: #### L IPID, T7, TSH, CMP #### [facility] [address] [address] [address] Jeny Helms T4 [Mass/Vol] 8.50 ug/dL Normal 4.80-13.90 [facility] Comment on above: Performed By: #### L IPID, T7, TSH, CMP #### [facility] [address] [address] [address] Jeny Helms GLYCOHEMOGLOBIN A1Con 2022 ADA RECOMMENDATION SEE BELOW Normal [facility] Comment on above: Result Comment: ADA RECOMMENDED LIMIT 4.0 - 6.0 ADA THERAPEUTIC TARGET < 7.0 ACTION SUGGESTED > 7.0 Performed By: #### A 1C #### [facility] [address] [address] [address] Jeny Helms Glucose [Mass/Vol] 100 mg/dL Normal [facility] Comment on above: Performed By: #### A 1C #### [facility] [address] [place] [address] Dr. Jeny Helms HbA1c (Bld) [Mass fraction] 5.1 % Normal 4.5-6.2 [facility] Comment on above: Performed By: #### A 1C #### [facility] [address] [place] [address] Dr. Jeny Helms IRONon 11-17-2022 Iron [Mass/Vol] 96.0 ug/dL Normal 50.0-170.0 [facility] Comment on above: Performed By: #### I AUTUMN #### [facility] [address] [place] [address] Dr. Jeny Helms LIPID PROFILEon 11-17-2022 CHOL-HDL RATIO NORM SEE BELOW Normal [facility] Comment on above: Result Comment: 3.3 - 4.4 LOW RISK 4.4 - 7.1 AVERAGE RISK 7.1 - 11.0 MODERATE RISK >11.0 HIGH RISK Performed By: #### L IPID, T7, TSH, CMP #### [facility] [address] [place] [address] Dr. Jeny Helms Cholesterol [Mass/Vol] 166 mg/dL Normal <=200 [facility] Comment on above: Performed By: #### L IPID, T7, TSH, CMP #### [facility] [address] [address] [address] Jeny Helms Cholesterol in HDL [Mass/Vol] 61 mg/dL Critically high 40-60 [facility] Comment on above: Performed By: #### L IPID, T7, TSH, CMP #### [facility] [address] [address] [address] Jeny Helms Cholesterol in LDL [Mass/Vol] 84.0 mg/dL Normal [facility] Comment on above: Performed By: #### L IPID, T7, TSH, CMP #### [facility] [address] [address] [address] Jeny Helms Cholesterol.total/Cho lesterol in HDL [Mass ratio] 2.7 {ratio} Normal [facility] Comment on above: Performed By: #### L IPID, T7, TSH, CMP #### [facility] [address] [address] [address] Jeny Helms HDL NORMAL > or = 60 mg/dl - LOW CARDIOVASCULAR RISK <40 mg/dl - HIGH CARDIOVASCULAR RISK Normal [facility] Comment on above: Performed By: #### L IPID, T7, TSH, CMP #### [facility] [address] [address] [address] Jeny Helms LDL CALC NORMAL SEE BELOW Normal [facility] Comment on above: Result Comment: <100 mg/dl OPTIMAL 100 - 129 mg/dl NEAR OR ABOVE OPTIMAL 130 - 159 mg/dl BORDERLINE HIGH 160 - 189 mg/dl HIGH >190 mg/dl VERY HIGH Performed By: #### L IPID, T7, TSH, CMP #### [facility] [address] [address] [address] Jeny Helms Triglyceride [Mass/Vol] 105 mg/dL Normal <=150 [facility] Comment on above: Performed By: #### L IPID, T7, TSH, CMP #### [facility] [address] [address] [address] Jeny Helms VLDL CALC 21.0 mg/dL Normal [facility] Comment on above: Performed By: #### L IPID, T7, TSH, CMP #### [facility] [address] [address] [address] Jeny Helms OCC BLD IMMUNO SCREENon 10-21 OCCULT BLOOD Negative Normal NEGATIVE [facility] Comment on above: Performed By: #### O BSCRN #### [facility] [address] [place] [address] Dr. Jeny Helms PROF 14(COMP METB)on 023 Albumin [Mass/Vol] 3.7 g/dL Normal 3.4-5.0 [facility] Comment on above: Performed By: #### L IPID, T7, TSH, CMP #### [facility] [address] [address] [address] Jeny Helms Albumin/Globulin [Mass ratio] 1.0 {ratio} Normal [facility] Comment on above: Performed By: #### L IPID, T7, TSH, CMP #### [facility] [address] [address] [address] Jeny Helms ALP [Catalytic activity/Vol] 119 U/L Critically high 46-116 [facility] Comment on above: Performed By: #### L IPID, T7, TSH, CMP #### [facility] [address] [address] [address] Jeny Helms ALT [Catalytic activity/Vol] 43 U/L Normal 14-59 [facility] Comment on above: Performed By: #### L IPID, T7, TSH, CMP #### [facility] [address] [place] [address] Dr. Jeny Helms Anion gap [Moles/Vol] 15.1 mmol/L Normal [facility] Comment on above: Performed By: #### L IPID, T7, TSH, CMP #### [facility] [address] [place] [address] Dr. Jeny Helms AST [Catalytic activity/Vol] 20 U/L Normal 15-37 [facility] Comment on above: Performed By: #### L IPID, T7, TSH, CMP #### [facility] [address] [address] [address] Jeny Helms Bilirubin [Mass/Vol] 0.5 mg/dL Normal 0.2-1.0 [facility] Comment on above: Performed By: #### L IPID, T7, TSH, CMP #### [facility] [address] [place] [address] Dr. Jeny Helms Calcium [Mass/Vol] 9.3 mg/dL Normal 8.5-10.1 [facility] Comment on above: Performed By: #### L IPID, T7, TSH, CMP #### [facility] [address] [address] [address] Jeny Helms Chloride [Moles/Vol] 105 mmol/L Normal 98-107 [facility] Comment on above: Performed By: #### L IPID, T7, TSH, CMP #### [facility] [address] [address] [address] Jeny Helms CO2 [Moles/Vol] 25.0 mmol/L Normal 21.0-32.0 [facility] Comment on above: Performed By: #### L IPID, T7, TSH, CMP #### [facility] [address] [place] [address] Dr. Jeny Helms Creatinine [Mass/Vol] 0.77 mg/dL Normal 0.55-1.02 [facility] Comment on above: Performed By: #### L IPID, T7, TSH, CMP #### [facility] [address] [place] [address] Dr. Jeny Helms EGFR-AF EMIRATI >60 Normal >=60 [facility] Comment on above: Performed By: #### L IPID, T7, TSH, CMP #### [facility] [address] [place] [address] Dr. Jeny Helms EGFR-NON AF EMIRATI >60 Normal >=60 [facility] Comment on above: Performed By: #### L IPID, T7, TSH, CMP #### [facility] [address] [place] [address] Dr. Jeny Helms Globulin (S) [Mass/Vol] 3.7 g/dL Normal [facility] Comment on above: Performed By: #### L IPID, T7, TSH, CMP #### [facility] [address] [place] [address] Dr. Jeny Helms Glucose [Mass/Vol] 103 mg/dL Normal 74-106 [facility] Comment on above: Performed By: #### L IPID, T7, TSH, CMP #### [facility] [address] [place] [address] Dr. Jeny Helms Potassium [Moles/Vol] 4.1 mmol/L Normal 3.5-5.1 [facility] Comment on above: Performed By: #### L IPID, T7, TSH, CMP #### [facility] [address] [address] [address] Jeny Helms Protein [Mass/Vol] 7.4 g/dL Normal 6.4-8.2 [facility] Comment on above: Performed By: #### L IPID, T7, TSH, CMP #### [facility] [address] [address] [address] Jeny Helms Sodium [Moles/Vol] 141 mmol/L Normal 136-145 [facility] Comment on above: Performed By: #### L IPID, T7, TSH, CMP #### [facility] [address] [address] [address] Jeny Helms Urea nitrogen [Mass/Vol] 21.0 mg/dL Critically high 7.0-18.0 [facility] Comment on above: Performed By: #### L IPID, T7, TSH, CMP #### [facility] [address] [place] [address] Dr. Jeny Helms Urea nitrogen/Creatinine [Mass ratio] 27.3 mg/mg Normal [facility] Comment on above: Performed By: #### L IPID, T7, TSH, CMP #### [facility] [address] [address] [address] Jeny Helms TSHon 11-17-2022 TSH 1.829 uIU/mL Normal 0.358-3.740 [facility] Comment on above: Performed By: #### L IPID, T7, TSH, CMP #### [facility] [address] [place] [address] LUNG CANCER SCREENINGon [...] MARIA Date: 2022-10-25 08:[address] [facility] MAMM SCREEN 3D ANGUS CADon 04-20-2022 MG MAMM SCREEN 3D ANGUS CAD Patient: EDILMA AGUDELO Exam Date: 04/20/2022 : 1965 Gender:F Ordering : TAMMIE VILLA [facility] Admission #: [id number] Family : DR ROSA CARRION Order #: [id number] CLICK HERE TO VIEW EXAM RADIOLOGY REPORT [...] stomach cancer at age 60. LOCATION: [facility] BREAST COMPOSITION: Heterogeneously dense,which may [...] Dwyer MD on 04/20/2022 at 08:07 Normal [facility] FLUORO FOR SURGICAL PROCEDUR ESon 02-05-2019 FLUORO FOR SURGICAL PROCEDURES EXAMINATION: FLUORO FOR SURGICAL PROCEDURES HISTORY: C-Spine . TECHNIQUE: FLUORO FOR SURGICAL PROCEDURES Fluoroscopic time: 15.2 seconds. COMPARISON: Cervical spine MRI 07/08/2018. RESULT: Fluoroscopic images demonstrate interval anterior fusion at C5-C6. No other significant abnormality. ----- IMPRESSION: Intraoperative imaging. Interpreted by: Andrea Medina MD Signed by: Andrea Medina MD 02/05/19 Final result Normal [facility] Surgical Specimenon 02-06-20 Surgical Specimen [facility] [address] [place] [address] FINAL SURGICAL PATHOLOGY REPORT Patient Name: EDILMA AGUDELO Accession No: [id number] Age Sex: 1965 [facility] Account No: [id number] Collected: 02/05/2019 Med Rec No: [id number] Received: 02/05/2019 Attend Phys: VICENTE BARAKAT Completed: [...] in toto in cassette A1. JEMIMA/LEILANI CPT: 48059 X1 LUCAS MCCARTY M.D. 02/06/2019 Electronically signed out by Page 1 of 1 [facility] Comment on above: Performed By: #### S UR #### [address] [address] Basic Metabolic Panelon 01-19 Anion gap [Moles/Vol] 22 mmol/L Critically high 9-15 [facility] Comment on above: Performed By: #### B MP #### [facility] [address] [place] [address] Calcium [Mass/Vol] 9.6 mg/dL Normal 8.5-9.9 [facility] Comment on above: Performed By: #### B MP #### [facility] [address] [place] [address] Chloride [Moles/Vol] 101 mmol/L Normal 95-107 [facility] Comment on above: Performed By: #### B MP #### [facility] [address] [place] [address] CO2 [Moles/Vol] 18 mmol/L Low 20-31 [facility] Comment on above: Performed By: #### B MP #### [facility] [address] [place] [address] Creatinine [Mass/Vol] 0.59 mg/dL Normal 0.50-0.90 [facility] Comment on above: Performed By: #### B MP #### [facility] [address] [place] [address] GFR/1.73 sq M predicted among blacks MDRD (S/P/Bld) [Vol rate/Area] mL/min/{1.73_m2} Normal >60 [facility] Comment on above: Result Comment: >60 mL/min/1.73m2 EGFR, calc. for ages 18 and older using the MDRD formula (not corrected for weight), is valid for stable renal function. Performed By: #### B MP #### [facility] [address] [place] [address] GFR/1.73 sq M.predicted MDRD (S/P/Bld) [Vol rate/Area] mL/min/{1.73_m2} Normal >60 [facility] Comment on above: Result Comment: >60 mL/min/1.73m2 EGFR, calc. for ages 18 and older using the MDRD formula (not corrected for weight), is valid for stable renal function. Performed By: #### B MP #### [facility] [address] [place] [address] Glucose [Mass/Vol] 82 mg/dL Normal 70-99 [facility] Comment on above: Performed By: #### B MP #### [facility] [address] [place] [address] Potassium [Moles/Vol] 3.8 mmol/L Normal 3.4-4.9 [facility] Comment on above: Performed By: #### B MP #### [facility] [address] [place] [address] Sodium [Moles/Vol] 141 mmol/L Normal 135-144 [facility] Comment on above: Performed By: #### B MP #### [facility] [address] [place] [address] Urea nitrogen [Mass/Vol] 13 mg/dL Normal 6-20 [facility] Comment on above: Performed By: #### B MP #### [facility] [address] [place] [address] CBC With Platelet No Differe ntialon 01-29-2019 Erythrocyte distribution width (RBC) [Ratio] 13.8 % Normal 11.5-14.5 [facility] Comment on above: Performed By: #### C BCND #### [facility] [address] [place] [address] Hematocrit (Bld) [Volume fraction] 44.5 % Normal 37.0-47.0 [facility] Comment on above: Performed By: #### C BCND #### [facility] [address] [place] [address] Hemoglobin (Bld) [Mass/Vol] 15.3 g/dL Normal 12.0-16.0 [facility] Comment on above: Performed By: #### C BCND #### [facility] [address] [place] [address] MCH (RBC) [Entitic mass] 33.6 pg Critically high 27.0-31.3 [facility] Comment on above: Performed By: #### C BCND #### [facility] [address] [place] [address] MCHC (RBC) [Mass/Vol] 34.4 % Normal 33.0-37.0 [facility] Comment on above: Performed By: #### C BCND #### [facility] [place] [address] [place] [address] MCV (RBC) [Entitic vol] 97.6 fL Normal 82.0-100.0 [facility] Comment on above: Performed By: #### C BCND #### [facility] [address] [place] [address] Platelets (Bld) [#/Vol] 200 10*3/uL Normal 130-400 [facility] Comment on above: Performed By: #### C BCND #### [facility] [address] [place] [address] RBC (Bld) [#/Vol] 4.56 10*6/uL Normal 4.20-5.40 [facility] Comment on above: Performed By: #### C BCND #### [facility] [address] [place] [address] WBC (Bld) [#/Vol] 6.6 10*3/uL Normal 4.8-10.8 [facility] Comment on above: Performed By: #### C BCND #### [facility] [address] [place] [address] Prothrombin Timeon 9 INR Coag (PPP) [Relative time] 0.9 {INR} Normal [facility] [place] [facility] Comment on above: Result Comment: Warf erin Therapy INR Therapeutic: 2.0-3.0 With Mechanical Valve: >2.5 Low-intensity Therapeutic Range: 1.5-2.0 Mod-intensity Therapeutic Range: 2.0-3.0 High-intensity Therapeutic Range: 2.5-3.5 HIgh-intensity Therapeutic Range: 3.0-4.0 Common Critical/Alarm Value: 5.0 Common Upper Limit Reported: 10.0 Effective 01/29/2019: Please note reference ranges have changed. Performed By: #### P T #### [facility] [place] [address] [place] [address] PT Coag (PPP) [Time] 12.3 s Normal 12.3-14.9 [facility] Comment on above: Result Comment: Effe ctive 01/29/19 Please note reference ranges have changed. Performed By: #### P T #### [facility] [place] [address] [place] [address] Type and Screen Capture 3 sc rn cellon 01-29-2019 Type and Screen Capture 3 scrn cell PATIENT: MAGNUS Fernando LOC: [facility] BILL# : [id number] : 1965 SEX: F ORDERED BY: COLLEEN Villanueva ORDERED : 01/29/2019 13:45 COLLECTED: 01/29/2019 14:58 ORDER : [id number] RECEIVED : 01/29/2019 14:58 TEST NAME RESULT UNITS RANGES ABN FL ST ABORH Capture B POS F Antibody 3 Cell Scrn Captu NEG F Normal [facility] [place] Comment on above: Performed By: #### T S3C #### [facility] [place] [address] [place] [address] Vital Signs Date Time Vital Sign Value Performing Clinician Faci lity 05-01-2024 11:35-0400 Diastolic blood pressure 92 mm[Hg] PLASMA PROCESSING TECHNICIAN-C Tammie Daisy Work Phone: [facility] 05-01-2024 11:35-0400 Heart rate 76 /min PLASMA PROCESSING TECHNICIAN-C Tammie Daisy Work Phone: [facility] 05-01-2024 11:35-0400 Respiratory rate 16 /min PLASMA PROCESSING TECHNICIAN-C Tammie Daisy Work Phone: [facility] 05-01-2024 11:35-0400 SaO2% (BldA) [Mass fraction] 98 % PLASMA PROCESSING TECHNICIAN-C Tammie Daisy Work Phone: [facility] 05-01-2024 11:35-0400 Systolic blood pressure 138 mm[Hg] PLASMA PROCESSING TECHNICIAN-C Tammie Daisy Work Phone: [facility] 05-01-2024 09:07-0400 Body height 160.02 cm PLASMA PROCESSING TECHNICIAN-C Tammie Daisy Work Phone: [facility] 05-01-2024 09:07-0400 Body temperature 98.1 [degF] PLASMA PROCESSING TECHNICIAN-C Tammiejessica Carbajalmer Work Phone: [facility] 05-01-2024 09:07-0400 Body weight 88.45 kg PLASMA PROCESSING TECHNICIAN-C Tammiejessica Villa Work Phone: [facility] 04-17-2024 09:40-0400 Body height 160.02 cm [facility] 04-17-2024 09:40-0400 Body mass index (BMI) [Ratio] 34.5 kg/m2 [facility] 04-17-2024 09:40-0400 Body weight 88.45 kg [facility] Encounters Encounter Date Encounter Type Care Provider Facility Start: 05-01-2024 Non-patient / Non-visit PLASMA PROCESSING TECHNICIAN-C Tammie Daisy Work Phone: [facility] Work Phone: Start: 05-01-2024 End: 05-01-2024 Admission to same day surgery center PLASMA PROCESSING TECHNICIAN-C Tammiejessica Villa Work Phone: [facility] Work Phone: Start: 05-01-2024 End: 05-01-2024 ambulatory PLASMA PROCESSING TECHNICIAN-C Tammie Villa Work Phone: [facility] Work Phone: Start: 04-17-2024 End: 04-17-2024 ambulatory [facility] Work Phone: Start: 04-17-2024 End: 04-17-2024 Patient encounter procedure [facility] Work Phone: Start: 09-20-2023 End: 09-20-2023 ambulatory ROSA Hay VISCI Not Available Start: 11-22-2022 Encounter for genera l adult medical examination without abnormal findings TAMMIE VILLA [facility] Start: 11-17-2022 End: 11-18-2022 ambulatory TAMMIE VILLA Facility:[facility] Start: 11-17-2022 End: 11-18-2022 Encounter for general adult medical examination without abnormal findings TAMMIE VILLA Facility:[facility] Start: 10-24-2022 End: 10-25-2022 ambulatory TAMMIE VILLA Facility:[facility] Start: 04-20-2022 End: 04-21-2022 ambulatory TAMMIE VILLA Facility:[facility] Start: 02-05-2019 End: 02-05-2019 Patient encounter procedure VICENTE Dago. [facility] Start: 01-29-2019 End: 02-03-2019 Patient encounter procedure VICENTE . [facility] Procedures Date Procedure Procedure Detail Performing Clinician Start: 05-01-2024 Esophagogastroduodenoscopy PLASMA PROCESSING TECHNICIAN-C Tammie ch Work Phone: Start: 02-05-2019 INCENTIVE [...] Date Care Activity Detail Author Start: 05-01-2024 [facility] Patient Education Hemorrhoids (D C) Diverticulosis (DC) Hiatal Hernia (DC) Colon Polypectomy (DC) Know your Meds [facility] Work Phone: Payers Date Payer Category Payer Self-pay [id number] 1965 Unknown [id number] 2.16.8 [id number] 1965 Unknown [id number] 2.16.8 [id number] 1965 Unknown [id number] 2.16.84 [id number] 1965 Unknown [id number] 2.16.84 [id number] 1965 Unknown [id number] 2.16.84 [id number] 1965 Unknown [id number] 2.16.84 [id number] 1959 Unknown [id number] 1959 Unknown [id number] Unknown [id number] 2.16.8 [id number] Social History Date Type Detail Facility Start: 04-17-2024 Tobacco smoking stat [facility] Never smoked tobacco (finding) [facility] Start: 1965 Sex Assigned At Female F [facility] Start: 05-01-2024 Tobacco smoking stat [facility] Ex-smoker (finding) [facility] Goals Date Patient Goal Desired Activity /State History and physical note 05-01-2024 Note Date & Type Note Facility 05-01-2024 History and physical note Note Date/Time May 01, 2024 9:59am [facility] [address] [place] [address] Gastroenterology H&P Signed Patient: Edilma Agudelo MR#: [id number] 1753 : 1965 Acct:[id number] Age/Sex: 58 / F Adm Date: 4 Loc: Room: Type: [facility] Attending Dr: Debo Padilla DO Copies [...] signed by Debo Padilla DO> 05/01/24 1028 [facility] Work Phone: Procedure note 05-01-2024 Note Date & Type Note Facility 05-01-2024 Procedure note [facility] Procedure note 05-01-2024 Note Date & Type Note Facility 05-01-2024 Procedure note [facility] Evaluation note Note Date & Type Note Facility Evaluation note Diagnosis Onset Date Dyspepsia acute Dysphagia acute Encounter for screening colonoscopy acute Family history of colon cancer acute [facility] Work Phone: Evaluation note Note Date & Type Note Facility Evaluation note Diagnosis Onset Date Dysphagia acute Encounter for screening colonoscopy acute GERD (gastroesophageal reflux disease) acute [facility] Work Phone: Hospital Discharge instructions Note [...] NOT operate machinery such as power tools, [employer] mowers, [email or web address] blowers, sewing machines, etc. for 24 hours. [...] -Follow up with PCP. - Office number [phone]. [facility] Work Phone: Summary Purpose Family History [...] section and content) DATE CREATED AUTHOR 02/06/2019 [facility] DATE CREATED AUTHOR AUTHOR'S ORGANIZ ATION 11/23/2022 [facility] DATE CREATED AUTHOR AUTHOR'S ORGANIZ ATION 09/22/2023 [facility] EPIC DATE CREATED AUTHOR AUTHOR'S ORGANIZ ATION 05/09/2024 [facility] Care Teams (unrecognized sec tion [...] 2024 End: April 17, 2024 Tammie Villa PLASMA PROCESSING TECHNICIAN-C Referring Provider Active Start: April 17, 2024 End: April 17, 2024 Team Status: Active Member Role Status Dates Tammie Villa PLASMA PROCESSING TECHNICIAN-C Primary Care Provider Active Team Status: Inactive Member Role Status Dates Debo L Ly , DO Attending Provider Active St art: May 01, 2024 End: May 01, 2024 Tammie Villa PLASMA PROCESSING TECHNICIAN-C Primary Care Provider Active Start: May 01, 2024 End: May 01, 2024 Team Status: Active Member Role Status Dates Debo L Ly , DO Attending Provider, Other Provider Active Start: May 01, 2024 Tammie Villa PLASMA PROCESSING TECHNICIAN-C Primary Care Provider Active Start: May 01, [...] BE BASED ON THE PRIMARY CLINICAL RECORDS. [employer] provides no warranty or guarantee of the accuracy or completeness of information in this document.
== END 2024-08-10 15:59 | disposition home or self-care (01) ==
LOC: RAD 15:59
PROVIDERS: PCP Nurse Practitioner Family; Visit Provider Nurse Practitioner Family
DX: M54.9 Dorsalgia, unspecified (principal); M48.54XA Collapsed vertebra, not elsewhere classified, thoracic region, initial encounter for fracture
CPT/HCPCS: 71100; 72072

== ENCOUNTER 2024-08-28 06:34 | Outpatient (OUT) | payer OTHER, SELFPAY ==
--- NOTE | 2024-08-28 06:37 | MR_ITS ---
[facility] [place] [id number] Patient Name: EVELIO AGUDELO MRN: [id number] date: 1965 Sex: F Assigned Patient Location: MRI Current Patient Location: MRI Accession/Order Number: [id number] Exam Date: 08/28/2024 06:45 Report Date: 08/28/2024 08:32 At the request of: TILA ROSARIO Procedure: MR thoracic spine wo con EXAMINATION: MR thoracic spine wo con HISTORY: Compression Fracture Of T4 Vertebra COMPARISON: 08/10/2024 plain x-ray TECHNIQUE: Axial T1 and T2; Sagittal T1, T2, and STIR sequences. Images were performed without and with ml Dotarem contrast. FINDINGS: CORD: Normal caliber, contour, and signal intensity. BONES: Normal alignment with no spondylolisthesis. There is a 20% anterior wedge compression fracture of the T4 vertebral body with heterogeneous signal including increased STIR signal consistent with an acute fracture. There is likely fracture plane along the posterior margin extending to the right pedicle but not definitively into the pedicle. No displacement of the fracture fragment or retropulsion. Increased signal identified in the T5 vertebral body without STIR signal likely representing a chronic injury or Modic 2 change DISCS: No significant disc/facet abnormality, spinal stenosis, or foraminal stenosis. PARASPINAL AREA: No visible mass. OTHER: Negative. No abnormal contrast enhancement. MR/MR thoracic spine wo con IMPRESSION: Acute 20% T4 wedge compression fracture Electronically authenticated by: BLAISE LUTZ Date: 08/28/2024 08:32
--- OUTSIDE RECORDS SUMMARY | 2024-08-28 06:37 | XMS_ITS | CCD ---
Author Organization [facility] CliniSyma Care Team Providers Care Test Preparer Name Role Phone ROSHNI, VICENTE H. Referring [...] Consulting Unavailable DAISY TAMMIE Primary Care Unavailable KENILWORTH, DR BLAISE Lowe Consulting Unavailable DAISY, TAMMIE Admitting Unavailable TAMMIE VILLA Attending Unavailable TAMMIE VILLA Consulting Unavailable ROSA CARRION Attending Unavailable ROSA CARRION Referring Unavailable DO Debo Padilla Attending Provider [phone] ANTONIO Villa Primary Care Provider Debo Padilla Attending Unavailable Debo Padilla Admitting Unavailable Tammie Villa Primary Care Unavailable Allergies Allergy Classification Reported Allergen(s) Allergy Type Date of Onset Reaction(s) Facility (2 sources) Chlorhexidine Drug Allergy 01-17-2021 Rash [facility] Repository (2 sources) traMADol Drug Allergy 05-23-2017 Hives [facility] Repository (2 sources) Isopropyl Alcohol; Translations: [isopropyl alcohol] Drug Allergy 05-01-2024 [facility] (1 source) Chlorhexidine Drug Allergy 05-01-2024 [facility] Repository (1 source) traMADol Drug Allergy 05-01-2024 [facility] Repository Medications Current Medications Medication Drug Class(es) [...] Pathology Request for Lab [place] Normal [facility] Comment on above: Order Comment: PATHO LOGY GI SPECIMEN Result Comment: See report. Scanned copy available in EMR. PERFORMED BY: [place] [address] PATHOLOGIST CUPOLA LINER HELPER TI ROLDAN M.D. Performed By: #### P ATH TO [facility] #### [address] INSULINon 11-19-2022 Insulin 18.1 uIU/mL Normal 2.6-24.9 [facility] Comment on above: Performed By: #### I NSULIN #### [facility] Laboratory [address] [address] [address] Jeny Helms CBC AUTO DIFFon 11-17-2022 BASO # 0.1 103/ul Normal 0.0-0.1 [facility] Comment on above: Performed By: #### C BC ####[facility] [address] [address]DrLilliam Helms Basophils/100 WBC (Bld) 1.4 % Normal 0.2-2.[address] [facility] Comment on above: Performed By: #### C BC ####[facility] [address] [id number] Helms EO # 0.2 103/ul Normal 0.0-0.[address] [facility] Comment on above: Performed By: #### C BC ####[facility] [address] [id number] Helms Eosinophils/100 WBC (Bld) 3.8 % Normal 0.9-7.0 [facility] Comment on above: Performed By: #### C BC ####[facility] [address] [address]Dr. Jeny Helms Erythrocyte distribution width (RBC) [Ratio] 13.3 % Normal 11.0-15.0 [facility] Comment on above: Performed By: #### C BC ####[facility] [address] [address]Dr. Jeny Helms Hematocrit (Bld) [Volume fraction] 41.2 % Normal 36.0-48.0 [facility] Comment on above: Performed By: #### C BC ####[facility] [address] [place], [place] [address]Dr. Jeny Helms Hemoglobin (Bld) [Mass/Vol] 13.5 g/dL Normal 12.0-16.0 [facility] Comment on above: Performed By: #### C BC ####[facility] [address] [place], [place] [address]Dr. Jeny Helms IG # 0.01 10e3/ul Normal 0.00-0.03 [facility] Comment on above: Performed By: #### C BC ####[facility] [address] [place], [place] [address]Dr. Jeny Helms IG % 0.2 % Normal 0.0-0.5 [facility] Comment on above: Performed By: #### C BC ####[facility] [address] [place], [place] [address]Dr. Jeny Helms LYMPH # 1.3 103/ul Normal 1.2-3.[address] [facility] Comment on above: Performed By: #### C BC ####[facility] [address] [place], [place] [address]Dr. Jeny Helms Lymphocytes/100 WBC (Bld) 30.0 % Normal 20.5-60.[address] [facility] Comment on above: Performed By: #### C BC ####[facility] [address] [place], [place] [address]Dr. Jeny Helms MANUAL DIFF REQ NO Normal [facility] Comment on above: Performed By: #### C BC ####[facility] [address] [id number]. Jeny Scooter MCH (RBC) [Entitic mass] 31.4 pg Normal 26.7-34.0 [facility] Comment on above: Performed By: #### C BC ####[facility] [address] [id number]. Jeny Scooter MCHC (RBC) [Mass/Vol] 32.8 g/dL Normal 29.9-35.2 [facility] Comment on above: Performed By: #### C BC ####[facility] [address] [address]Dr. Jeny Helms MCV (RBC) [Entitic vol] 95.8 fL Normal 81.0-99.0 [facility] Comment on above: Performed By: #### C BC ####[facility] [address] [place], [place] [address]Dr. Jeny Helms MONO # 0.5 103/ul Normal 0.3-0.8 [facility] Comment on above: Performed By: #### C BC ####[facility] [address] [place], [place] [address]Dr. Jeny Helms Monocytes/100 WBC (Bld) 10.6 % Normal 1.7-12.0 [facility] Comment on above: Performed By: #### C BC ####[facility] [address] [place], [place] [address]Dr. Jeny Helms NEUT # 2.4 103/ul Normal 1.4-6.[address] [facility] Comment on above: Performed By: #### C BC ####[facility] [address] [place], [place] [address]DrLilliam Helms Neutrophils/100 WBC (Bld) 54.0 % Normal 43.0-75.[address] [facility] Comment on above: Performed By: #### C BC ####[facility] [address] [place], [place] [address]DrLilliam Helms Platelet mean volume (Bld) [Entitic vol] 10.3 fL Normal 9.5-13.5 [facility] Comment on above: Performed By: #### C BC ####[facility] [address] [id number]. Jeny Helms PLT 258 103/ul Normal 150-450 [facility] Comment on above: Performed By: #### C BC ####[facility] [address] [id number]. Jeny Helms RBC 4.30 106/ul Normal 4.20-5.40 [facility] Comment on above: Performed By: #### C BC ####[facility] [address] [id number]. Jeny Helms WBC 4.4 103/ul Normal 4.0-11.0 [facility] Comment on above: Performed By: #### C BC ####[facility] [address] [id number]. Jeny Helms FREE THYROXINE INDEX T7on FTI 2.72 Normal 1.30-4.50 [facility] Comment on above: Performed By: #### L IPID, T7, TSH, CMP #### [facility] [address] [address] [address] Jeny Helms T3U 32.0 % Normal 30.0-39.0 [facility] Comment on above: Performed By: #### L IPID, T7, TSH, CMP #### [facility] [address] [address] [address] Jeny Helms T4 [Mass/Vol] 8.50 ug/dL Normal 4.80-13.90 [facility] Comment on above: Performed By: #### L IPID, T7, TSH, CMP #### [facility] [address] [address] [address] Jeny Helms GLYCOHEMOGLOBIN A1Con 2022 ADA RECOMMENDATION SEE BELOW Normal [facility] Comment on above: Result Comment: ADA RECOMMENDED LIMIT 4.0 - 6.0 ADA THERAPEUTIC TARGET < 7.0 ACTION SUGGESTED > 7.0 Performed By: #### A 1C #### [facility] [address] [address] [address] Jeny Helms Glucose [Mass/Vol] 100 mg/dL Normal [facility] Comment on above: Performed By: #### A 1C #### [facility] [address] [place] [address] Dr. Jeny Helms HbA1c (Bld) [Mass fraction] 5.1 % Normal 4.5-6.2 [facility] Comment on above: Performed By: #### A 1C #### [facility] [address] [place] [address] Dr. Jeny Helms IRONon 11-17-2022 Iron [Mass/Vol] 96.0 ug/dL Normal 50.0-170.0 [facility] Comment on above: Performed By: #### I AUTUMN #### [facility] [address] [place] [address] Dr. Jeny Helms LIPID PROFILEon 11-17-2022 CHOL-HDL RATIO NORM SEE BELOW Normal [facility] Comment on above: Result Comment: 3.3 - 4.4 LOW RISK 4.4 - 7.1 AVERAGE RISK 7.1 - 11.0 MODERATE RISK >11.0 HIGH RISK Performed By: #### L IPID, T7, TSH, CMP #### [facility] [address] [place] [address] Dr. Jeny Helms Cholesterol [Mass/Vol] 166 mg/dL Normal <=200 [facility] Comment on above: Performed By: #### L IPID, T7, TSH, CMP #### [facility] [address] [address] [address] Jeny Helms Cholesterol in HDL [Mass/Vol] 61 mg/dL Critically high 40-60 [facility] Comment on above: Performed By: #### L IPID, T7, TSH, CMP #### [facility] [address] [address] [address] Jeny Helms Cholesterol in LDL [Mass/Vol] 84.0 mg/dL Normal [facility] Comment on above: Performed By: #### L IPID, T7, TSH, CMP #### [facility] [address] [address] [address] Jeny Helms Cholesterol.total/Cho lesterol in HDL [Mass ratio] 2.7 {ratio} Normal [facility] Comment on above: Performed By: #### L IPID, T7, TSH, CMP #### [facility] [address] [address] [address] Jeny Helms HDL NORMAL > or = 60 mg/dl - LOW CARDIOVASCULAR RISK <40 mg/dl - HIGH CARDIOVASCULAR RISK Normal [facility] Comment on above: Performed By: #### L IPID, T7, TSH, CMP #### [facility] [address] [address] [address] Jeny Helms LDL CALC NORMAL SEE BELOW Normal [facility] Comment on above: Result Comment: <100 mg/dl OPTIMAL 100 - 129 mg/dl NEAR OR ABOVE OPTIMAL 130 - 159 mg/dl BORDERLINE HIGH 160 - 189 mg/dl HIGH >190 mg/dl VERY HIGH Performed By: #### L IPID, T7, TSH, CMP #### [facility] [address] [address] [address] Jeny Helms Triglyceride [Mass/Vol] 105 mg/dL Normal <=150 [facility] Comment on above: Performed By: #### L IPID, T7, TSH, CMP #### [facility] [address] [address] [address] Jeny Helms VLDL CALC 21.0 mg/dL Normal [facility] Comment on above: Performed By: #### L IPID, T7, TSH, CMP #### [facility] [address] [address] [address] Jeny Helms OCC BLD IMMUNO SCREENon 10-21 OCCULT BLOOD Negative Normal NEGATIVE [facility] Comment on above: Performed By: #### O BSCRN #### [facility] [address] [place] [address] Dr. Jeny Helms PROF 14(COMP METB)on 023 Albumin [Mass/Vol] 3.7 g/dL Normal 3.4-5.0 [facility] Comment on above: Performed By: #### L IPID, T7, TSH, CMP #### [facility] [address] [address] [address] Jeny Helms Albumin/Globulin [Mass ratio] 1.0 {ratio} Normal [facility] Comment on above: Performed By: #### L IPID, T7, TSH, CMP #### [facility] [address] [address] [address] Jeny Helms ALP [Catalytic activity/Vol] 119 U/L Critically high 46-116 [facility] Comment on above: Performed By: #### L IPID, T7, TSH, CMP #### [facility] [address] [address] [address] Jeny Helms ALT [Catalytic activity/Vol] 43 U/L Normal 14-59 [facility] Comment on above: Performed By: #### L IPID, T7, TSH, CMP #### [facility] [address] [place] [address] Dr. Jeny Helms Anion gap [Moles/Vol] 15.1 mmol/L Normal [facility] Comment on above: Performed By: #### L IPID, T7, TSH, CMP #### [facility] [address] [place] [address] Dr. Jeny Helms AST [Catalytic activity/Vol] 20 U/L Normal 15-37 [facility] Comment on above: Performed By: #### L IPID, T7, TSH, CMP #### [facility] [address] [address] [address] Jeny Helms Bilirubin [Mass/Vol] 0.5 mg/dL Normal 0.2-1.0 [facility] Comment on above: Performed By: #### L IPID, T7, TSH, CMP #### [facility] [address] [place] [address] Dr. Jeny Helms Calcium [Mass/Vol] 9.3 mg/dL Normal 8.5-10.1 [facility] Comment on above: Performed By: #### L IPID, T7, TSH, CMP #### [facility] [address] [address] [address] Jeny Helms Chloride [Moles/Vol] 105 mmol/L Normal 98-107 [facility] Comment on above: Performed By: #### L IPID, T7, TSH, CMP #### [facility] [address] [address] [address] Jeny Helms CO2 [Moles/Vol] 25.0 mmol/L Normal 21.0-32.0 [facility] Comment on above: Performed By: #### L IPID, T7, TSH, CMP #### [facility] [address] [place] [address] Dr. Jeny Helms Creatinine [Mass/Vol] 0.77 mg/dL Normal 0.55-1.02 [facility] Comment on above: Performed By: #### L IPID, T7, TSH, CMP #### [facility] [address] [place] [address] Dr. Jeny Helms EGFR-AF BULGARIAN >60 Normal >=60 [facility] Comment on above: Performed By: #### L IPID, T7, TSH, CMP #### [facility] [address] [place] [address] Dr. Jeny Helms EGFR-NON AF BULGARIAN >60 Normal >=60 [facility] Comment on above: Performed By: #### L IPID, T7, TSH, CMP #### [facility] [address] [place] [address] Dr. Jeny Helms Globulin (S) [Mass/Vol] 3.7 g/dL Normal [facility] Comment on above: Performed By: #### L IPID, T7, TSH, CMP #### [facility] [address] [place] [address] Dr. Jeny Helms Glucose [Mass/Vol] 103 mg/dL Normal 74-106 [facility] Comment on above: Performed By: #### L IPID, T7, TSH, CMP #### [facility] [address] [place] [address] Dr. Jeny Helms Potassium [Moles/Vol] 4.1 mmol/L Normal 3.5-5.1 [facility] Comment on above: Performed By: #### L IPID, T7, TSH, CMP #### [facility] [address] [address] [address] Jeny Helms Protein [Mass/Vol] 7.4 g/dL Normal 6.4-8.2 [facility] Comment on above: Performed By: #### L IPID, T7, TSH, CMP #### [facility] [address] [address] [address] Jeny Helms Sodium [Moles/Vol] 141 mmol/L Normal 136-145 [facility] Comment on above: Performed By: #### L IPID, T7, TSH, CMP #### [facility] [address] [address] [address] Jeny Helms Urea nitrogen [Mass/Vol] 21.0 mg/dL Critically high 7.0-18.0 [facility] Comment on above: Performed By: #### L IPID, T7, TSH, CMP #### [facility] [address] [place] [address] Dr. Jeny Helms Urea nitrogen/Creatinine [Mass ratio] 27.3 mg/mg Normal [facility] Comment on above: Performed By: #### L IPID, T7, TSH, CMP #### [facility] [address] [address] [address] Jeny Helms TSHon 11-17-2022 TSH 1.829 uIU/mL Normal 0.358-3.740 [facility] Comment on above: Performed By: #### L IPID, T7, TSH, CMP #### [facility] [address] [place] [address] LUNG CANCER SCREENINGon [...] OCTAVIANO MARIA Date: 2022-10-25 08:12 Normal [facility] MAMM SCREEN 3D ANGUS CADon 04-20-2022 MG MAMM SCREEN 3D ANGUS CAD Patient: EDILMA AGUDELO Exam Date: 04/20/2022 : 1965 Gender:F Ordering : TAMMIE VILLA [facility] Admission #: [id number] Family : DR ROSA CARRION Order #: [id number] CLICK HERE TO VIEW EXAM RADIOLOGY REPORT [...] stomach cancer at age 60. LOCATION: The [facility] BREAST COMPOSITION: Heterogeneously dense,which may obscure [...] Dwyer MD on 04/20/2022 at 08:07 Normal [facility] FLUORO FOR SURGICAL PROCEDUR ESon 02-05-2019 [...] [place] [facility] Specimen[facility] 02-06-20 Surgical Specimen [facility] [address] [place] [address] FINAL SURGICAL PATHOLOGY REPORT Patient Name: EDILMA AGUDELO Accession No: [id number] Age Sex: 1965 [facility] No: [id number] Collected: 02/05/2019 Med Rec No: [id number] Received: 02/05/2019 Attend Phys: VICENTE BARAKAT Completed: [...] in toto in cassette A1. JEMIMA/LEILANI CPT: 80214 X1 LUCAS MCCARTY M.D. 02/06/2019 Electronically signed out by Page 1 of 1 [facility] [place] Comment on above: Performed By: #### S UR #### [address] [place] [address] Basic Metabolic Panelon 01-19 Anion gap [Moles/Vol] 22 mmol/L Critically high 9-15 [facility] [place] Comment on above: Performed By: #### B MP #### [facility] [place] [address] [place] [address] Calcium [Mass/Vol] 9.6 mg/dL Normal 8.5-9.9 [facility] [place] Comment on above: Performed By: #### B MP #### [facility] [place] [address] [place] [address] Chloride [Moles/Vol] 101 mmol/L Normal 95-107 [facility] Comment on above: Performed By: #### B MP #### [facility] [place] [address] [place] [address] CO2 [Moles/Vol] 18 mmol/L Low 20-31 [facility] Comment on above: Performed By: #### B MP #### [facility] [place] [address] [place] [address] Creatinine [Mass/Vol] 0.59 mg/dL Normal 0.50-0.90 [facility] Comment on above: Performed By: #### B MP #### [facility] [place] [address] [place] [address] GFR/1.73 sq M predicted among blacks MDRD (S/P/Bld) [Vol rate/Area] mL/min/{1.73_m2} Normal >60 [facility] [place] Comment on above: Result Comment: >60 mL/min/1.73m2 EGFR, calc. for ages 18 and older using the MDRD formula (not corrected for weight), is valid for stable renal function. Performed By: #### B MP #### [facility] [place] [address] [place] [address] GFR/1.73 sq M.predicted MDRD (S/P/Bld) [Vol rate/Area] mL/min/{1.73_m2} Normal >60 [facility] [place] Comment on above: Result Comment: >60 mL/min/1.73m2 EGFR, calc. for ages 18 and older using the MDRD formula (not corrected for weight), is valid for stable renal function. Performed By: #### B MP #### [facility] [place] [address] [place] [address] Glucose [Mass/Vol] 82 mg/dL Normal 70-99 [facility] [place] Comment on above: Performed By: #### B MP #### [facility] [place] [address] [place] [address] Potassium [Moles/Vol] 3.8 mmol/L Normal 3.4-4.9 [facility] Comment on above: Performed By: #### B MP #### [facility] [place] [address] [place] [address] Sodium [Moles/Vol] 141 mmol/L Normal 135-144 [facility] [place] Comment on above: Performed By: #### B MP #### [facility] [place] [address] [place] [address] Urea nitrogen [Mass/Vol] 13 mg/dL Normal 6-20 [facility] [place] Comment on above: Performed By: #### B MP #### [facility] [place] [address] [place] [address] CBC With Platelet No Differe ntialon 01-29-2019 Erythrocyte distribution width (RBC) [Ratio] 13.8 % Normal 11.5-14.5 [facility] [place] Comment on above: Performed By: #### C BCND #### [facility] [place] [address] [place] [address] Hematocrit (Bld) [Volume fraction] 44.5 % Normal 37.0-47.0 [facility] [place] Comment on above: Performed By: #### C BCND #### [facility] [place] [address] [place] [address] Hemoglobin (Bld) [Mass/Vol] 15.3 g/dL Normal 12.0-16.0 [facility] [place] Comment on above: Performed By: #### C BCND #### [facility] [place] [address] [place] [address] MCH (RBC) [Entitic mass] 33.6 pg Critically high 27.0-31.3 [facility] [place] Comment on above: Performed By: #### C BCND #### [facility] [place] [address] [place] [address] MCHC (RBC) [Mass/Vol] 34.4 % Normal 33.0-37.0 [facility] Comment on above: Performed By: #### C BCND #### [facility] [place] [address] [place] [address] MCV (RBC) [Entitic vol] 97.6 fL Normal 82.0-100.0 [facility] [place] Comment on above: Performed By: #### C BCND #### [facility] [place] [address] [place] [address] Platelets (Bld) [#/Vol] 200 10*3/uL Normal 130-400 [facility] [place] Comment on above: Performed By: #### C BCND #### [facility] [place] [address] [place] [address] RBC (Bld) [#/Vol] 4.56 10*6/uL Normal 4.20-5.40 [facility] [place] Comment on above: Performed By: #### C BCND #### [facility] [place] [address] [place] [address] WBC (Bld) [#/Vol] 6.6 10*3/uL Normal 4.8-10.8 [facility] [place] Comment on above: Performed By: #### C BCND #### [facility] [place] [address] [place] [address] Prothrombin Timeon 9 INR Coag (PPP) [Relative [...] [facility] [place] [place] [address] [place] [address] PT Coag (PPP) [Time] 12.3 s Normal 12.3-14.9 [facility] Comment on above: Result Comment: Effe ctive 01/29/19 Please note reference ranges have changed. Performed By: #### P T #### [facility] [place] [address] [place] [address] Type and Screen Capture 3 sc rn cellon 01-29-2019 Type and Screen Capture 3 scrn cell PATIENT: MAGNUS Fernando LOC: [facility] BILL# : [id number] : 1965 SEX: F ORDERED BY: COLLEEN Villanueva ORDERED : 01/29/2019 13:45 COLLECTED: 01/29/2019 14:58 ORDER : [id number] RECEIVED : 01/29/2019 14:58 TEST NAME RESULT UNITS RANGES ABN FL ST ABORH Capture B POS F Antibody 3 Cell Scrn Captu NEG F Normal [facility] [place] Comment on above: Performed By: #### T S3C #### [facility] [place] [address] [place] [address] Vital Signs Date Time Vital Sign Value Performing Clinician Faci lity 05-01-2024 11:35-0400 Diastolic blood pressure 92 mm[Hg] MINE ADMINISTRATOR SUPERVISOR-C Tammie Daisy Work Phone: [facility] 05-01-2024 11:35-0400 Heart rate 76 /min MINE ADMINISTRATOR SUPERVISOR-C Tammie Daisy Work Phone: [facility] 05-01-2024 11:35-0400 Respiratory rate 16 /min MINE ADMINISTRATOR SUPERVISOR-C Tammie Daisy Work Phone: [facility] 05-01-2024 11:35-0400 SaO2% (BldA) [Mass fraction] 98 % MINE ADMINISTRATOR SUPERVISOR-C Tammie Daisy Work Phone: [facility] 05-01-2024 11:35-0400 Systolic blood pressure 138 mm[Hg] MINE ADMINISTRATOR SUPERVISOR-C Tammie Daisy Work Phone: [facility] 05-01-2024 09:07-0400 Body height 160.02 cm MINE ADMINISTRATOR SUPERVISOR-C Tammie Daisy Work Phone: [facility] 05-01-2024 09:07-0400 Body temperature 98.1 [degF] MINE ADMINISTRATOR SUPERVISOR-C Tammiejessica Carbajalmer Work Phone: [facility] 05-01-2024 09:07-0400 Body weight 88.45 kg MINE ADMINISTRATOR SUPERVISOR-C Tammiejessica Villa Work Phone: [facility] 04-17-2024 09:40-0400 Body height 160.02 cm [facility] 04-17-2024 09:40-0400 Body mass index (BMI) [Ratio] 34.5 kg/m2 [facility] 04-17-2024 09:40-0400 Body weight 88.45 kg [facility] Encounters Encounter Date Encounter Type Care Provider Facility Start: 05-01-2024 Non-patient / Non-visit MINE ADMINISTRATOR SUPERVISOR-C Tammie Daisy Work Phone: [facility] Work Phone: Start: 05-01-2024 End: 05-01-2024 Admission to same day surgery center MINE ADMINISTRATOR SUPERVISOR-C Tammiejessica Villa Work Phone: [facility] Work Phone: Start: 05-01-2024 End: 05-01-2024 ambulatory MINE ADMINISTRATOR SUPERVISOR-C Tammie Villa Work Phone: [facility] Work Phone: Start: 04-17-2024 End: 04-17-2024 ambulatory [facility] Work Phone: Start: 04-17-2024 End: 04-17-2024 Patient encounter procedure [facility] Work Phone: Start: 09-20-2023 End: 09-20-2023 ambulatory ROSA Hay VISCI Not Available Start: 11-22-2022 Encounter for genera l adult medical examination without abnormal findings TAMMIE VILLA [facility] Start: 11-17-2022 End: 11-18-2022 ambulatory TAMMIE VILLA Facility:[facility] Start: 11-17-2022 End: 11-18-2022 Encounter for general adult medical examination without abnormal findings TAMMIE VILLA Facility:[facility] Start: 10-24-2022 End: 10-25-2022 ambulatory TAMMIE VILLA Facility:[facility] Start: 04-20-2022 End: 04-21-2022 ambulatory TAMMIE VILLA Facility:[facility] Start: 02-05-2019 End: 02-05-2019 Patient encounter procedure VICENTE Dago. [facility] Start: 01-29-2019 End: 02-03-2019 Patient encounter procedure VICENTE . [facility] Procedures Date Procedure Procedure Detail Performing Clinician Start: 05-01-2024 Esophagogastroduodenoscopy MINE ADMINISTRATOR SUPERVISOR-C Tammie ch Work Phone: Start: 02-05-2019 INCENTIVE SPIROMETRY RT VICENTE ROSHNI Start: 02-05-2019 Level iv surg pathology gross&microscopic exam VICENTE ROSHNI Start: 02-05-2019 INCENTIVE SPIROMETRY RT VICENTE ROSHNI Start: 02-05-2019 FLUORO FOR SURGICAL PROCEDURES VICENTE ROSHNI Start: 02-05-2019 DISCHARGE PATIENT VICENET ROSHNI Start: 02-05-2019 Level iv surg pathology [...] Date Care Activity Detail Author Start: 05-01-2024 [facility] Patient Education Hemorrhoids (D C) Diverticulosis (DC) Hiatal Hernia (DC) Colon Polypectomy (DC) Know your Meds [facility] Work Phone: Payers Date Payer Category Payer Self-pay [id number] 1965 Unknown [id number] 2.16.8 [id number] 1965 Unknown [id number] 2.16.8 [id number] 1965 Unknown [id number] 2.16.84 [id number] 1965 Unknown [id number] 2.16.84 [id number] 1965 Unknown [id number] 2.16.84 [id number] 1965 Unknown [id number] 2.16.84 [id number] 1959 Unknown [id number] 1959 Unknown [id number] Unknown [id number] 2.16.8 [id number] Social History Date Type Detail Facility Start: 04-17-2024 Tobacco smoking stat [facility] Never smoked tobacco (finding) [facility] Start: 1965 Sex Assigned At Female F [facility] Start: 05-01-2024 Tobacco smoking stat [facility] Ex-smoker (finding) [facility] Goals Date Patient Goal Desired Activity /State History and physical note 05-01-2024 Note Date & Type Note Facility 05-01-2024 History and physical note Note Date/Time May 01, 2024 9:59am [facility] [address] [place] [address] Gastroenterology H&P Signed Patient: Edilma Agudelo MR#: [id number] : 1965 Acct:[id number] Age/Sex: 58 / F Adm Date: 4 Loc: Room: Type: [facility] Attending Dr: Debo Padilla DO Copies to: [...] signed by Debo Padilla DO> 05/01/24 1028 [facility] Work Phone: Procedure note 05-01-2024 Note Date & Type Note Facility 05-01-2024 Procedure note [facility] Procedure note 05-01-2024 Note Date & Type Note Facility 05-01-2024 Procedure note [facility] Evaluation note Note Date & Type Note Facility Evaluation note Diagnosis Onset Date Dyspepsia acute Dysphagia acute Encounter for screening colonoscopy acute Family history of colon cancer acute [facility] Work Phone: Evaluation note Note Date & Type Note Facility Evaluation note Diagnosis Onset Date Dysphagia acute Encounter for screening colonoscopy acute GERD (gastroesophageal reflux disease) acute [facility] Work Phone: Hospital Discharge instructions Note Date [...] NOT operate machinery such as power tools, [employer] mowers, [employer] blowers, sewing machines, etc. for 24 hours. [...] -Follow up with PCP. - Office number [phone]. [facility] Work Phone: Summary Purpose Family History [...] section and content) DATE CREATED AUTHOR 02/06/2019 [facility] DATE CREATED AUTHOR AUTHOR'S ORGANIZ ATION 11/23/2022 [facility] DATE CREATED AUTHOR AUTHOR'S ORGANIZ ATION 09/22/2023 [facility] EPIC DATE CREATED AUTHOR AUTHOR'S ORGANIZ ATION 05/09/2024 [facility] Care Teams (unrecognized sec tion and content) Team Status: Active Member Role Status Dates PHYSICIAN NO FAMILY Primary Care Provider Active Team Status: Inactive Member Role Status Dates PHYSICIAN NO FAMILY Primary Care Provider Active Start: April 17, 2024 End: April 17, 2024 Debo L Ly , DO Attending Provider Active St art: April 17, 2024 End: April 17, 2024 Tammie Villa MINE ADMINISTRATOR SUPERVISOR-C Referring Provider Active Start: April 17, 2024 End: April 17, 2024 Team Status: Active Member Role Status Dates Tammie Villa MINE ADMINISTRATOR SUPERVISOR-C Primary Care Provider Active Team Status: Inactive Member Role Status Dates Debo L Ly , DO Attending Provider Active St art: May 01, 2024 End: May 01, 2024 Tammie Villa MINE ADMINISTRATOR SUPERVISOR-C Primary Care Provider Active Start: May 01, 2024 End: May 01, 2024 Team Status: Active Member Role Status Dates Debo L Ly , DO Attending Provider, Other Provider Active Start: May 01, 2024 Tammie Villa MINE ADMINISTRATOR SUPERVISOR-C Primary Care Provider Active Start: May 01, [...] BE BASED ON THE PRIMARY CLINICAL RECORDS. [employer] provides no warranty or guarantee of the accuracy or completeness of information in this document.
== END 2024-08-28 06:35 | disposition home or self-care (01) ==
LOC: MRI 06:34
PROVIDERS: PCP Nurse Practitioner Family
DX: S22.040D Wedge compression fracture of fourth thoracic vertebra, subsequent encounter for fracture with routine healing (principal)
CPT/HCPCS: 72146

== ENCOUNTER 2024-11-25 14:56 | Outpatient (OUT) | payer OTHER, SELFPAY ==
--- NOTE | 2024-11-25 15:00 | CT_ITS ---
The [address] [address] Patient Name: EVELIO AGUDELO MRN: [id number] date: 1965 Sex: F Assigned Patient Location: CT Current Patient Location: CT Accession/Order Number: [id number] Exam Date: 11/25/2024 15:36 Report Date: 11/25/2024 15:39 At the request of: PADMINI VILLA Procedure: CT chest wo con CT CHEST WITHOUT IV CONTRAST: CLINICAL HISTORY: Pulmonary Nodules COMPARISON: CT chest 11/11/[address] 10/14/2021 TECHNIQUE: Spiral images were obtained through the chest without IV contrast. This CT exam was performed using one or more following dose reduction techniques: Automated exposure control, adjustment of the mA and/or kV according to patient size, or use of iterative reconstruction technique. FINDINGS: Mediastinum:13 mm nodule right lobe of the thyroid gland. Thoracic aorta appears normal in caliber. Pulmonary trunk appears nondilated. No pleural effusion or lymphadenopathy. The esophagus is grossly unremarkable. Moderate-sized hiatal hernia. Lungs:No consolidation pneumothorax or pleural effusion. Trachea and distal airways appear patent. No suspicious pulmonary nodule is seen on today's study. A few tree-in-bud and postinflammatory nodules are present. Abd:No acute findings. Soft tissues/Bones: No acute findings. Osseous structures demonstrate degenerative change. Chronic appearing compression deformity T4 vertebral body. CT/CT chest wo con IMPRESSION: No suspicious pulmonary nodule seen on today's study. A few presumed postinflammatory and tree-in-bud nodules are noted. Impression dictated by: Jayme Herrera Jr., D.O. 11/25/2024 3:39 PM Dictation Location: [place] [address] Electronically authenticated by: [id number] Y Date: 11/25/2024 15:39
== END 2024-11-25 14:57 | disposition home or self-care (01) ==
LOC: CT 14:56
PROVIDERS: PCP Nurse Practitioner Family; Visit Provider Nurse Practitioner Family
DX: R91.8 Other nonspecific abnormal finding of lung field (principal)
CPT/HCPCS: 71250

== ENCOUNTER 2024-12-23 09:34 | Outpatient (OUT) | payer OTHER, SELFPAY ==
--- NOTE | 2024-12-23 10:00 | CA_ITS ---
Patient Name: EVELIO AGUDELO MR#: [id number] : 1965 Exam Date: 12/23/2024 Ordering Doctor: PADMINI VILLA CNP ECHOCARDIOGRAM REPORT PROCEDURE: CA ECHO DOPPLER COMPLETE INDICATIONS: Hypertension COMPARISON: None. DESCRIPTION: COMPLETE ECHOCARDIOGRAM Real-time transthoracic echocardiography with 2D, M-mode, spectral and color flow Doppler performed. QUALITY: Technical quality was good. LEFT VENTRICLE: Normal chamber size. Normal left ventricular wall thickness. Systolic function is at the lower limits of normal. LV EF: Low normal left ventricular ejection fraction, (50%). DIASTOLIC: Normal diastolic function. ATRIAL SEPTUM: LEFT ATRIUM: Normal chamber size. RIGHT ATRIUM: Normal chamber size. RIGHT VENTRICLE: Normal chamber size. Normal systolic function. TRICUSPID VALVE: Normal mobility and thickness. No stenosis with trivial regurgitation. No evidence of pulmonary hypertension. RVSP 27 mmHg MITRAL VALVE: Normal mobility and thickness. No evidence of mitral valve stenosis. There is no mitral annular calcification. Trivial mitral regurgitation. Redundant chord is noted. AORTIC VALVE: No visible sclerosis. Normal leaflet mobility. No evidence of aortic valve stenosis. Mild aortic regurgitation. AORTIC ROOT: Normal diameter and appearance, measuring 3.4 cm. Ascending aorta is normal in size, measuring 2.9 cm. PULMONIC VALVE: Not well visualized. No stenosis. No regurgitation. PERICARDIUM: No evidence of pericardial effusion. IVC: Collapses with inspirations. IVC is normal in size. PLEURA: CONCLUSION: 1. Normal left ventricular size with low normal systolic function. LVEF is estimated at 50%. 2. Normal right ventricular size and systolic function. 3. Normal diastolic function. 4. Mild aortic regurgitation. 5. Normal right sided pressures. Adult Echocardiography Procedure Report Left Ventricle LVEDD (3.7 - 5.6 cm): 4.54 cm LVESD (2.2 - 4.0 cm): 3.06 cm LVIVS thickness (0.6 - 1.2 cm): 0.97 cm LVPW thickness (0.5 - 1.0 cm): 0.93 cm e': 0.10 m/s E - e': 7.20 LVOT Max Gradient: 2.88 mm[Hg] LVOT Area (cm2): 0.85 m/s Peak Velocity (LVOT): 0.85 m/s LVOT Diameter 2.45 cm Left Atrium LA Volume Index (2D A2C): 34.06 ml/m2 Left Atrium Systolic Dimension: 3.97 cm Mitral Valve MV E to A Ratio: 0.78 Mitral Valve A-Wave Peak Velocity: 0.95 m/s Mitral Valve E-Wave Peak Velocity: 0.74 m/s Right Ventricle Aorta AO Root Diam: 3.38 cm Ascending Ao Diam: 2.91 cm Aortic Valve AoV Area (Peak Vince): 2.01 cm2, 2.01 cm2 Deceleration Casey: 2.24 m/s2 Pressure Half-Time: 475.45 ms Peak Velocity(Antegrade Flow): 2.00 m/s Peak Gradient(Antegrade Flow): 15.92 mm[Hg] Mean Velocity(Antegrade Flow): 1.47 m/s Mean Gradient(Antegrade Flow): 9.56 mm[Hg] Velocity Time Integral: 44.06 cm Tricuspid Valve Peak Velocity (Regurgitant Flow): 2.45 m/s Pulmonic Valve Peak Velocity: 1.02 m/s Peak Gradient: 4.19 mm[Hg] Right Atrium Right Atrium Systolic Pressure: 39.71 ml, 39.71 ml Dictated by: Benja Gregory M.D. on 12/23/2024 at 18:50 Approved by: Benja Gregory M.D. on 12/23/2024 at 18:56
== END 2024-12-23 09:35 | disposition home or self-care (01) ==
LOC: CARD 09:35
PROVIDERS: PCP Nurse Practitioner Family; Visit Provider Nurse Practitioner Family
DX: I10 Essential (primary) hypertension (principal)
CPT/HCPCS: 93306

== ENCOUNTER 2025-02-12 07:48 | Outpatient (OUT) | payer OTHER, SELFPAY ==
--- OUTSIDE RECORDS SUMMARY | 2024-12-08 08:45 | XMS_ITS ---
Author Organization The [facility] in [place] Address [address] [place] [address] Care Team Providers Care Project Facilitator Name Role Phone Tammie Butterfield Primary Care Provider REASON FOR VISIT CT chest Encounters Encounter Location Date Provider Diagnosis [facility] [address] [facility] [place] [address] 12/08/2024 Tammie Butterfield Plan Of Treatment No Information Progress Notes * Hank OBRIENOB:1965 ([age] yo F)Acc No.[id number]:12/08/2024 Patient: Edilma JO :1965 A ge:59 Y S ex:Female Address:[facility] [place], [address] * true * Date: Generated for Ramirez villar/Wen/eTransmitting on: 0 02/12/2025 07:50 AM EDT
--- OUTSIDE RECORDS SUMMARY | 2024-12-24 05:28 | XMS_ITS ---
Author Organization The [facility] in [place] Address [address] [place] [address] Care Team Providers Care Media Buyer Name Role Phone Tammie Butterfield Primary Care Provider Reason For Referral Diagnosis 1 Mitral valve regurgi tation (I34.0) Referral Organization [facility] Referring Provider First Name Tammie Referring Provider Last Name Scout Referring Provider [facility] Family Med icine Referred Provider [facility] Cardiology, [facility] Referred Provider Specialty Cardiology Referral Priority Routine REASON FOR VISIT echo Problems Problem Type SNOMED Code ICD Code Onset Dates Problem Status W/U Status Risk Notes Problem Mitral valve regurgitation (I34.0) Active confirmed Encounters Encounter Location Date Provider Diagnosis [facility] [address] [facility] [place] [address] 12/24/2024 Tammie Butterfield Mitral valve regurgitation I34.0 Assessments Encounter Date Diagnosis (ICD Code) Assessment Notes Treatment Notes Treatment Clinical Notes Section Notes 12/24/2024 Mitral valve regurgitation (ICD-10 - I34.0) Plan Of Treatment Referrals Referral Date Details 12/28/2024 12/28/2024, [facility] Cardiology Progress Notes * Hank OBRIENOB:1965 ([age] yo F)Acc No.[id number]:12/24/2024 Patient: Edilma JO :1965 A ge:59 Y S ex:Female Address:[facility] [place] [place], [address] Subjective: * Chief Complaints: * E cho * Medical History: * Surgical History: * Hospitalization/Major Diagno stic Procedure: * Medications: Objective: * Vitals: * Physical Examination: Assessment: * Assessment: 1. M itral valve regurgitation - I34.0 (Primary) Plan: * Treatment: * Procedure Codes: * true * Date: Generated for Ramirez villar/Wen/Nakitaitting on: 0 02/12/2025 07:50 AM EDT Consultation Request Notes Referral Date Referring Provider Referred Provider Not es 12/28/2024 Tammie Butterfield [facility] Cardiology, Specialty Clinic
--- NOTE | 2025-02-12 | NM_ITS ---
Patient Name: EVELIO AGUDELO MR#: [id number] : 1965 Exam Date: 02/12/2025 Ordering Doctor: DR ELIZABETH GALLARDO M.D. RADIOLOGY REPORT PROCEDURE: NM CATE PERF SPECT REST STR COMPARISON: None. INDICATIONS: SHORTNESS OF BREATH, ABNORMAL EKG TECHNIQUE: Exam Description: Stress/Rest one day protocol gated SPECT Rest Imagin. 10.3 mCi Tc-99m Cardiolite IV on 02/12/2025 Stress Imaging 31.1 mCi Tc-99m Cardiolite IV on 02/12/2025 Exercise Protocol: Chema Heart Rate (bpm): Rest: 74 Max: 144 PMHR: 89 Blood Pressure: Rest: 138/80 Max: 156/84 Exercise Time: Minutes: 5 Seconds: 21 Stage Reached: Stage: 2 Mets 7.0 Symptoms: Rest and peak stress ECG findings were pending, and the exercise portion of the study was pending per attending physician [facility]. For more details, please see separate cardiac stress test report. FINDINGS: QUALITY OF STUDY: Adequate PERFUSION DEFECT: LOCATION: Anterolateral SIZE: Moderate SEVERITY: Mild TYPE: Reversible WALL MOTION: Normal wall motion LV SIZE: 126 mL. TID / TCD: 0.8 LVEF: Calculated EF 60%. SUMMARY: Myocardial perfusion imaging study is abnormal CONCLUSION: 1. Myocardial perfusion is abnormal with soft tissue attenuation 2. An anterior reversible perfusion defect is seen suggestive of ischemia 3. Global left ventricular systolic function is normal 4. No evidence of significant transient ischemic dilatation Dictated by: Leonardo Guidry M.D. on 02/16/2025 at 09:05 Approved by: Leonardo Guidry M.D. on 02/16/2025 at 09:09
--- OUTSIDE RECORDS SUMMARY | 2025-02-12 07:50 | XMS_ITS | Patient Health Record ---
Author Organization [facility] in [place] Address [address] [place] [address] Care Team Providers Care Budget Examiner Name Role Phone Tammie Villa Primary Care Provider Michael Gaines Unavailable [phone] Joaquin Montanez Unavailable [phone] Allergies Allergen (clinical drug ingredient) Drug/Non Drug Allergy documented on EMR Reaction Allergy Type Onset Date Status tramadol traMADol hives Drug Allergy Active Results Component Value Reference Range Notes MR thoracic spine wo con Reviewed date:08/31/2024 08:16:42 AM Interpretation: Performing Lab: Notes/Report: Source Facility: [place] [address] Magnetic Resonance Report Signed Patient: EDILMA AGUDELO MR#: [id number] : 1965 Acct:[id number] Age/Sex: 58 / F ADM Date: 08/28/24 Loc: MRI Attending Dr: Emeterio CAMACHO Ordering Physician: Emeterio Escalante Date of Service: 08/28/24 Procedure(s): MR thoracic spine wo con Accession Number(s): [id number] cc: TAMMIE VILLA ; Emeterio Escalante [place] [address] Patient Name: EDILMA AGUDELO MRN: [id number] date: 1965 Sex: F Assigned Patient Location: MRI Current Patient Location: MRI Accession/Order Number: [id number] Exam Date: 08/28/2024 06:45 Report Date: 08/28/2024 08:32 At the request of: EMETERIO ESCALANTE Procedure: MR thoracic spine wo con EXAMINATION: MR thoracic spine wo con HISTORY: Compression Fracture Of T4 Vertebra COMPARISON: 08/10/2024 plain x-ray TECHNIQUE: Axial T1 and T2; Sagittal T1, T2, and STIR sequences. Images were performed without and with ml Dotarem contrast. FINDINGS: CORD: Normal caliber, contour, and signal intensity. BONES: Normal alignment with no spondylolisthesis. There is a 20% anterior wedge compression fracture of the T4 vertebral body with heterogeneous signal including increased STIR signal consistent with an acute fracture. There is likely fracture plane along the posterior margin extending to the right pedicle but not definitively into the pedicle. No displacement of the fracture fragment or retropulsion. Increased signal identified in the T5 vertebral body without STIR signal likely representing a chronic injury or Modic 2 change DISCS: No significant disc/facet abnormality, spinal stenosis, or foraminal stenosis. PARASPINAL AREA: No visible mass. OTHER: Negative. No abnormal contrast enhancement. MR/MR thoracic spine wo con IMPRESSION: Acute 20% T4 wedge compression fracture Electronically authenticated by: BLAISE LUTZ Date: 08/28/2024 08:32 Dictated By: Blaise Lutz M.D. Signed By: 08/28/24834 DD/ 1 TD/TT: Electric Pile Driver Operator: [place] [address] Magnetic Resonance Report Signed Patient: EDILMA AGUDELO MR#: [id number] : 1965 Acct:[id number] Age/Sex: 58 / F ADM Date: 08/28/24 Loc: MRI Attending Dr: Emeterio CAMACHO Ordering Physician: Emeterio Escalante Date of Service: 08/28/24 Procedure(s): MR thoracic spine wo con Accession Number(s): [id number] cc: TAMMIE VILLA ; Emeterio Escalante [place] [id number] Patient Name: EDILMA AGUDELO MRN: [id number] date: 1965 Sex: F Assigned Patient Location: MRI Current Patient Location: MRI Accession/Order Numb er: [id number] Exam Date: 08/28/2024 06:45 Report Date: 08/28/2024 08:32 At the request of: EMETERIO ESCALANTE Procedure: MR thorac ic spine wo con EXAMINATION: MR thor acic spine wo con HISTORY: Compression Fracture Of T4 Vertebra COMPARISON: plain x-ray TECHNIQUE: Axial T1 and T2; Sagittal T1, T2, and STIR sequences. Images were performed without an d with ml Dotarem contrast. FINDINGS: CORD: Normal caliber , contour, and signal intensity. BONES: Normal alignm ent with no spondylolisthesis. There is a 20% anterior wedge compression fracture of the T4 vertebral body with heterogeneous signal including increased STIR signal consistent with an acute fracture. There is likely fracture plan e along the posterior margin extending to the right pedicle but not definitively into the pedicle. No displacement of the fracture fragment or retropulsion. Increased signal identified in the T5 vertebral body without STIR signal likely representing a chronic injury or Modic 2 change DISCS: No significan t disc/facet abnormality, spinal stenosis, or foraminal stenosis. PARASPINAL AREA: No visible mass. OTHER: Negative. No abnormal contrast enhancement. M R/MR thoracic spine wo con IMPRESSION: Acute 20% T4 wedge compression fracture Electronically authenticated by: BLAISE LUTZ Date: 08/28/2024 08:32 Dictated By: Ildefonso Lutz M.D. Signed By: 08/28/24 0835 DD/ 0832 TD/TT: Electric Pile Driver Operator: CT chest wo con Reviewed date:12/07/2024 02:13:29 PM Interpretation: Performing Lab: Notes/Report: Source Facility: [facility]-[address] [place] [address] [place] [address] CT Scan Report Signed Patient: EDILMA AGUDELO MR#: [id number] : 1965 Acct:[id number] Age/Sex: 59 / F ADM Date: 11/25/24 Loc: CT Attending Dr: TAMMIE VILLA Ordering Physician: TAMMIE VILLA Date of Service: 11/25/24 Procedure(s): CT chest wo con Accession Number(s): [id number] cc: TAMMIE VILLA [place] [id number] Patient Name: EDILMA AGUDELO MRN: [id number] date: 1965 Sex: F Assigned Patient Location: CT Current Patient Location: CT Accession/Order Number: [id number] Exam Date: 11/25/2024 15:36 Report Date: 11/25/2024 15:39 At the request of: TAMMIE VILLA Procedure: CT chest wo con CT CHEST WITHOUT IV CONTRAST: CLINICAL HISTORY: Pulmonary Nodules COMPARISON: CT chest 11/11/[address] 10/14/2021 TECHNIQUE: Spiral images were obtained through the chest without IV contrast. This CT exam was performed using one or more following dose reduction techniques: Automated exposure control, adjustment of the mA and/or kV according to patient size, or use of iterative reconstruction technique. FINDINGS: Mediastinum:13 mm nodule right lobe of the thyroid gland. Thoracic aorta appears normal in caliber. Pulmonary trunk appears nondilated. No pleural effusion or lymphadenopathy. The esophagus is grossly unremarkable. Moderate-sized hiatal hernia. Lungs:No consolidation pneumothorax or pleural effusion. Trachea and distal airways appear patent. No suspicious pulmonary nodule is seen on today's study. A few tree-in-bud and postinflammatory nodules are present. Abd:No acute findings. Soft tissues/Bones: No acute findings. Osseous structures demonstrate degenerative change. Chronic appearing compression deformity T4 vertebral body. CT/CT chest wo con IMPRESSION: No suspicious pulmonary nodule seen on today's study. A few presumed postinflammatory and tree-in-bud nodules are noted. Impression dictated by: Jayme Herrera Jr., D.O. 11/25/2024 3:39 PM Dictation Location: [place] [address] Electronically authenticated by: [id number] Y Date: 11/25/2024 15:39 Dictated By: Jayme Herrera M.D. Signed By: 11/25/24 1542 DD/ 1539 TD/TT: Electric Pile Driver Operator: [place] [address] CT Scan Report Signed Patient: EDILMA AGUDELO MR#: [id number] : 1965 Acct:[id number] Age/Sex: 59 / F ADM Date: 11/25/24 Loc: CT Attending Dr: TAMMIE VILLA Ordering Physician: TAMMIE VILLA Date of Service: 11/25/24 Procedure(s): CT son st wo con Accession Number(s): [id number] cc: TAMMIE VILLA [place] [address] Patient Name: EDILMA AGUDELO MRN: [id number] date: 1965 Sex: F Assigned Patient Location: CT Current Patient Location: CT Accession/Order Numb er: [id number] Exam Date: 11/25/2024 15:36 Report Date: 11/25/2024 15:39 At the request of: TAMMIE VILLA Procedure: CT chest wo con CT CHEST WITHOUT IV CONTRAST: CLINICAL HISTORY: Pulmonary Nodules COMPARISON: CT chest 11/11/[address] 10/14/2021 TECHNIQUE: Spiral im ages were obtained through the chest without IV contrast. This CT exam was performed using one or more following dose reduction techniques: Automate d exposure control, adjustment of the mA and/or kV according to patient size, or use of iterative reconstruction technique. FINDINGS: Mediastinum:13 mm no dule right lobe of the thyroid gland. Thoracic aorta appears normal in caliber. Pulmonary trunk appears nondilated. No pleural effusion or lymphadenopathy. The esophagus is grossly unremarkable. Moderate-sized hiata l hernia. Lungs:No consolidati on pneumothorax or pleural effusion. Trachea and distal airways appear paten t. No suspicious pulmonary nodule is seen on today's study. A few tree-in -bud and postinflammatory nodules are present. Abd:No acute findings. Soft tissues/Bones: No acute findings. Osseous structures demonstrate degenerative change. Chronic appearing compression deformity T4 vertebral body. C T/CT chest wo con IMPRESSION: No suspicious pulmon loreta nodule seen on today's study. A few presumed postinflammatory and tree-in-bud nodules are noted. Impression dictated by: Jayme Herrera Jr., D.OLilliam 11/25/2024 3:39 PM Dictation Location: [place] [address] Electronically authenticated by: [id number] Y Date: 11/25/2024 15:39 Dictated By: Jayme Herrera M.D. Signed By: 11/25/24 1542 DD/ 1539 TD/TT: Electric Pile Driver Operator: XR DEXA axial skeleton Reviewed date:06/10/2024 11:40:41 AM Interpretation: Performing Lab: Notes/Report: Source Facility: [place] [address] XRay Report Signed Patient: EDILMA AGUDELO MR#: [id number] : 1965 Acct:[id number] Age/Sex: 58 / F ADM Date: 06/05/24 Loc: MINI Attending Dr: TAMMIE VILLA Ordering Physician: TAMMIE VILLA Date of Service: 06/05/24 Procedure(s): XR DEXA axial skeleton Accession Number(s): [id number] cc: TAMMIE VILLA [place] [address] Patient Name: EDILMA AGUDELO MRN: [id number] date: 1965 Sex: F Assigned Patient Location: [facility] Current Patient Location: Accession/Order Number: [id number] Exam Date: 06/05/2024 15:05 Report Date: 06/06/2024 06:35 At the request of: TAMMIE VILLA Procedure: XR DEXA axial skeleton EXAMINATION: XR DEXA axial skeleton HISTORY: Osteopenia COMPARISON: DEXA bone densitometry 03/21/2018 TECHNIQUE: Dual-energy X-ray absorptiometry (DXA) was performed. FINDINGS: SPINE ANALYSIS: Average bone mineral density is 0.926 g/cm2. T-score (standard deviation relative to young adult mean): -2.1 . -0.7% change since prior study. HIP ANALYSIS: Lowest bone mineral density is within the left femoral neck, 0.72 g/cm2. T-score (standard deviation relative to young adult mean): -1.8 . -1.1% change since prior study. XR/XR DEXA axial skeleton IMPRESSION: World Health Organization Classification: Osteopenia - Moderate Fracture Risk FRAX: Cannot be calculated. Pharmacologic treatment recommendations * No uniform recommendation applies to all patients. Management plans must be individualized. * Consider initiating pharmacologic treatment in postmenopausal women and men >= 50 years of age who have the following: Primary fracture prevention: * T-score <= - 2.5 at the femoral neck, total hip, lumbar spine, 33% radius (some uncertainty with existing data) by DXA. * Low bone mass (osteopenia: T-score between - 1.0 and - 2.5) at the femoral neck or total hip by DXA with a 10-year hip fracture risk >= 3% or a 10-year major osteoporosis-related fracture risk >= 20% (i.e., clinical vertebral, hip, forearm, or proximal humerus) based on the [place]-adapted FRAXregistered model. Secondary fracture prevention: * Fracture of the hip or vertebra regardless of BMD [4, 5]. * Fracture of proximal humerus, pelvis, or distal forearm in persons with low bone mass (osteopenia: T-score between - 1.0 and - 2.5). The decision to treat should be individualized in persons with a fracture of the proximal humerus, pelvis, or distal forearm who do not have osteopenia or low BMD [12, 13]. Miroslava MS, Darci SL, Ralph KL, Sarai EM, Jung KG, AJ, Shelly ES. The clinician's guide to prevention and treatment of osteoporosis. Osteoporos Int. 2021;33(10):5608-4919. doi: 10.1007/i10811-204-99860-u. Epub 2021Nov 16. Erratum in: Osteoporos Int. 2021Feb 15;: PMID: 27008010; PMCID: [id number]. Electronically authenticated by: OCTAVIANO MARIA Date: 06/06/2024 06:35 Dictated By: Octaviano Maria M.D. Signed By: 06/06/24 0638 DD/ TD/TT: Electric Pile Driver Operator: [place] [address] XRay Report Signed Patient: EDILMA AGUDELO MR#: [id number] : 1965 Acct:[id number] Age/Sex: 58 / F ADM Date: 06/05/24 Loc: RAD Attending Dr: TAMMIE VILLA Ordering Physician: TAMMIE VILLA Date of Service: 06/05/24 Procedure(s): XR DEX A axial skeleton Accession Number(s): [id number] cc: TAMMIE VILLA [place] [address] Patient Name: EDLIMA AGUDELO MRN: [id number] date: 1965 Sex: F Assigned Patient Location: RAD Current Patient Location: Accession/Order Numb er: [id number] Exam Date: 15:05 Report Date: 06/06/2024 06:35 At the request of: TAMMIE VILLA Procedure: XR DEXA a xial skeleton EXAMINATION: XR DEXA axial skeleton HISTORY: Osteopenia COMPARISON: DEXA bon e densitometry 03/21/2018 TECHNIQUE: Dual-ener gy X-ray absorptiometry (DXA) was performed. FINDINGS: SPINE ANALYSIS: Average bone mineral density is 0.926 g/cm2. T-score (standard deviation relative to young adult mean): -2.1 . -0.7% change since p rior study. HIP ANALYSIS: Lowest bone mineral density is within the left femoral neck, 0.72 g/cm2. T-score (standard deviation relative to young adult mean): -1.8 . -1.1% change since p rior study. X R/XR DEXA axial skeleton IMPRESSION: World Health Organization Classification: Osteopenia - Moderate Fracture Risk FRAX: Cannot be calculated. Pharmacologic treatm ent recommendations * No uniform recommendation applies to all patients. Management plans must be individualized. * Consider initiatin g pharmacologic treatment in postmenopausal women and men >= 50 years of age w ho have the following: Primary fracture prevention: * T-score <= - 2.5 a t the femoral neck, total hip, lumbar spine, 33% radius (some uncertainty wi th existing data) by DXA. * Low bone mass (osteopenia: T-score between - 1.0 and - 2.5) at the femoral neck or total hip by DXA with a 10-year hip fracture risk >= 3% or a 10-year major osteoporosis-related fracture risk >= 20% (i.e., clinical vertebral, hip, forearm, or proximal humerus) based on the US-adapted FRAXregistered model. Secondary fracture prevention: * Fracture of the hi p or vertebra regardless of BMD [4, 5]. * Fracture of proxim al humerus, pelvis, or distal forearm in persons with low bone mass (osteopeni a: T-score between - 1.0 and - 2.5). The decision to treat should be individual ized in persons with a fracture of the proximal humerus, pelvis, or distal forearm who do not have osteopenia or low BMD [12, 13]. Miroslava MS, Darci SL, Ralph KL, Sarai EM, Jung KG, AJ, Shelly ES. The clinician's guid e to prevention and treatment of osteoporosis. Osteoporos Int. 2021;33(10):6373-5477. doi: 10.1007/d38669-194-48324 -y. Epub 2021Nov 16. Erratum in: Osteoporos Int. 2021Feb 15;: PMID: 19350376; PMCID: [id number]. Electronically authenticated by: OCTAVIANO MARIA Date: 06/06/2024 06:35 Dictated By: Octaviano Maria M.D. Signed By: 06/06/2438 DD/ TD/TT: Electric Pile Driver Operator: XR foot LT min 3V (Not yet r eviewed by provider) Interpretation: Performing Lab: Notes/Report: Source Facility: [place] [address] [place] [address] XRay Report Signed Patient: EDILMA AGUDELO MR#: [id number] : 1965 Acct:[id number] Age/Sex: 58 / F ADM Date: 04/09/24 Loc: EC Attending Dr: Joaquin Montanez Ordering Physician: Joaquin Montanez Date of Service: 04/09/24 Procedure(s): XR foot LT min 3V Accession Number(s): [id number] cc: TAMMIE VILLA ; Joaquin Montanez [address] [address] Patient Name: EDILMA AGUDELO MRN: [id number] date: 1965 Sex: F Assigned Patient Location: Current Patient Location: Accession/Order Number: [id number] Exam Date: 04/09/2024 15:24 Report Date: 04/10/2024 12:55 At the request of: JOAQUIN MONTANEZ Procedure: XR foot LT min 3V PROCEDURE: XR foot LT min 3V COMPARISON: None. HISTORY: LEFT FOOT PAIN FINDINGS: BONES:No acute fracture or dislocation. Moderate plantar enthesopathic spurring of the calcaneus. Mild degenerative changes SOFT TISSUES:Negative. No visible soft tissue swelling. EFFUSION:None visible. OTHER: Negative. XR/XR foot LT min 3V IMPRESSION: Degenerative changes Electronically authenticated by: BLAISE LUTZ Date: 04/10/2024 12:55 Dictated By: Blaise Lutz M.D. Signed By: 04/10/24 1257 DD/ 1255 TD/TT: Electric Pile Driver Operator: [place] [address] XRay Report Signed Patient: EDILMA AGUDELO MR#: [id number] : 1965 Acct:[id number] Age/Sex: 58 / F ADM Date: 04/09/24 Loc: EC Attending Dr: Lana Montanez Ordering Physician: Joaquin Montanez Date of Service: 04/09/24 Procedure(s): XR bashir t LT min 3V Accession Number(s): [id number] cc: TAMMIE VILLA ; Joaquin Montanez [address] [address] Patient Name: EDILMA AGUDELO MRN: [id number] date: 1965 Sex: F Assigned Patient Location: Current Patient Location: Accession/Order Numb er: [id number] Exam Date: 04/09/2024 15:24 Report Date: 04/10/2024 12:55 At the request of: JOAQUIN TARIK Procedure: XR foot L T min 3V PROCEDURE: XR foot L T min 3V COMPARISON: None. HISTORY: LEFT FOOT PAIN FINDINGS: BONES:No acute fract ure or dislocation. Moderate plantar enthesopathic spurring of the calcaneus. Mi ld degenerative changes SOFT TISSUES:Negativ e. No visible soft tissue swelling. EFFUSION:None visible. OTHER: Negative. X R/XR foot LT min 3V IMPRESSION: Degenerative changes Electronically authenticated by: BLAISE LUTZ Date: 04/10/2024 12:55 Dictated By: Ildefonso Lutz M.D. Signed By: 04/10/24 1257 DD/ 1255 TD/TT: Electric Pile Driver Operator: Occult Blood* Reviewed date:02/26/2024 09:35:23 AM Interpretation: Performing Lab: Notes/Report: [facility] , Occult Blood Negative Performing Lab: see note ML - [facility] LB TSH Reviewed date:02/21/2024 11:41:26 AM Interpretation: Performing Lab: Notes/Report: [facility] , Thyroid Stimulating Hormone 1.445 0.358-3.740 uIU/mL Performing Lab: see note ML - [facility] LB T4 Reviewed date:02/21/2024 11:41:26 AM Interpretation: Performing Lab: Notes/Report: [facility] , T4 Thyroxine 7.30 4.80-13.90 ug/dL Performing Lab: see note ML - [facility] LB PROF 14(COMP METB) Reviewed date:02/21/2024 11:41:26 AM Interpretation: Performing Lab: Notes/Report: [facility] , Sodium 138 136-145 mmol/L Potassium 4.2 3.5-5.1 mmol/L Chloride 103 98-107 mmol/L Carbon Dioxide 23.9 21.0-32.0 mmol/L Anion Gap 15.3 Glucose 98 74-106 mg/dL Blood Urea Nitrogen 25.0 7.0-18.0 mg/dL Creatinine 0.84 0.55-1.02 mg/dL Estimated GFR ( Mena >60 >=60 Estimated GFR (Non- Carli >60 >=60 BUN Creatinine Ratio 29.8 Calcium 9.6 8.5-10.1 mg/dL Bilirubin Total 0.4 0.2-1.0 mg/dL Aspartate Amino Transferase 21 15-37 U/L Alanine Aminotransferase 38 14-59 U/L Alkaline Phosphatase 117 46-116 U/L Total Protein 7.4 6.4-8.2 g/dL Albumin Level 3.8 3.4-5.0 g/dL Globulin 3.6 Albumin Globulin Ratio 1.1 Performing Lab: see note - [facility] LIPID PROFILE Reviewed date:02/21/2024 11:41:26 AM Interpretation: Performing Lab: Notes/Report: [facility] , Triglycerides 72 <=150 mg/dL Cholesterol 161 <=200 mg/dL HDL Cholesterol 63 40-60 mg/dL > or =60 mg/dl - LOW CARDIOVASCULAR RISK <40 mg/dl - HIGH CARDIOVASCULAR RISK LDL Cholesterol Calculated 84.0 160-189 mg/dl HIGH 130-159 mg/dl BORDERLINE HIGH 100-129 mg/dl NEAR OR ABOVE OPTIMAL >190 mg/dl VERY HIGH <100 mg/dl OPTIMAL VLDL CHOLESTEROL 14.4 Chol HDL Ratio 2.6 3.3 - 4.4 LOW RISK >11.0 HIGH RISK 7.1 - 11.0 MODERATE RISK 4.4 - 7.1 AVERAGE RISK Performing Lab: see note ML - [facility] INSULIN Reviewed date:02/26/2024 09:38:52 AM Interpretation: Performing Lab: Notes/Report: [facility] , Insulin 12.9 2.6-24.9 uIU/mL Driving Instructor: Garry Shoemaker PhD, Phone: [phone] [address] [place], [place] [id number] Performed at: [facility] Performing Lab: see note - [facility] GLYCOHEMOGLOBIN A1C Reviewed date:02/21/2024 01:00:55 PM Interpretation: Performing Lab: Notes/Report: [facility] , Glycohemoglobin A1C 4.9 4.5-6.2 % ACTION SUGGESTED > 7.0 ADA RECOMMENDED LIMIT 4.0 - 6.0 ADA THERAPEUTIC TARGET < 7.0 Estimated Average Glucose 94 Performing Lab: see note - [facility] FREE T3 Reviewed date:02/21/2024 11:41:26 AM Interpretation: Performing Lab: Notes/Report: [facility] , Free T3 3.04 2.18-3.98 pg/mL Performing Lab: see note ML - [facility] LB CBC AUTO DIFF Reviewed date:02/21/2024 11:41:26 AM Interpretation: Performing Lab: Notes/Report: [facility] , White Blood Count 4.6 4.0-11.0 10 3/uL Red Blood Count 4.20 4.20-5.40 10 6/uL Hemoglobin 13.1 12.0-16.0 g/dL Hematocrit 38.6 36.0-48.0 % Mean Corpuscular Volume 91.9 81.0-99.0 fL Mean Corpuscular Hemoglobin 31.2 26.7-34.0 pg Mean Corpuscular HGB Conc 33.9 29.9-35.2 g/dL Red Cell Distribution Width 13.2 11.0-15.0 % Platelet Count 250 150-450 10 3/uL Mean Platelet Volume 10.5 9.5-13.5 fL Neutrophils Percent Auto 53.2 43.0-75.0 % Lymphocytes Percent Auto 30.6 20.5-60.0 % Monocytes Percent Auto 11.6 1.7-12.0 % Eosinophils Percent Auto 3.3 0.9-7.0 % Basophils Percent Auto 1.1 0.2-2.0 % Immature Granulocytes Pct Auto 0.2 0.0-0.5 % Neutrophils Absolute Auto 2.4 1.4-6.5 10 3/uL Lymphocytes Absolute Auto 1.4 1.2-3.8 10 3/uL Monocytes Absolute Auto 0.5 0.3-0.8 10 3/uL Eosinophils Absolute Auto 0.2 0.0-0.7 10 3/uL Basophils Absolute Auto 0.1 0.0-0.1 10 3/uL Immature Granulocytes Abs Auto 0.01 0.00-0.03 10 3/uL Performing Lab: see note ML - [facility] LB XR ribs RT 2V Reviewed date:08/11/2024 03:24:23 PM Interpretation: Performing Lab: Notes/Report: Source Facility: [facility] [place] [address] [place] [address] XRay Report Signed Patient: EDILMA AGUDELO MR#: [id number] : 1965 Acct:[id number] Age/Sex: 58 / F ADM Date: 08/10/24 Loc: RAD Attending Dr: TAMMIE VILLA Ordering Physician: TAMMIE VILLA Date of Service: 08/10/24 Procedure(s): XR ribs RT 2V Accession Number(s): [id number] cc: TAMMIE VILLA [place] [address] Patient Name: EDILMA AGUDELO MRN: [facility]:[id number] date: 1965 Sex: F Assigned Patient Location: RAD Current Patient Location: Accession/Order Number: [id number] Exam Date: 08/10/2024 16:15 Report Date: 08/11/2024 11:39 At the request of: TAMMIE VILLA Procedure: XR ribs RT 2V EXAMINATION: XR ribs RT 2V HISTORY: back pain M54.9 COMPARISON: XR chest 06/19/2021 FINDINGS: LUNGS: Trace amount stranding and small opacities within lateral left lung base/costophrenic angle. PLEURA: No pneumothorax, effusion, or pleural thickening. MEDIASTINUM: No visible mass or adenopathy. CARDIAC: No cardiomegaly or cardiac silhouette abnormality. RIBS: No significant arthropathy or acute abnormality. OTHER: Negative. XR/XR ribs RT 2V IMPRESSION: 1. No appreciable rib abnormality. 2. Trace amount of lingular infiltrates versus atelectasis. Electronically authenticated by: OCTAVIANO MARIA Date: 08/11/2024 11:39 Dictated By: Octaviano Maria M.D. Signed By: 08/11/24 1141 DD/ 1139 TD/TT: Electric Pile Driver Operator: [place] [address] XRay Report Signed Patient: EDILMA AGUDELO MR#: [id number] : 1965 Acct:[id number] Age/Sex: 58 / F ADM Date: 08/10/24 Loc: RAD Attending Dr: TAMMIE VILLA Ordering Physician: TAMMIE VILLA Date of Service: 08/10/24 Procedure(s): XR rib s RT 2V Accession Number(s): [id number] cc: TAMMIE VILLA [place] [address] Patient Name: EDILMA AGUDELO MRN: [facility]:[id number] date: 1965 Sex: F Assigned Patient Location: [facility] Current Patient Location: Accession/Order Numb er: [id number] Exam Date: 08/10/2024 16:15 Report Date: 08/11/2024 11:39 At the request of: TAMMIE VILLA Procedure: XR ribs RT 2V EXAMINATION: XR ribs RT 2V HISTORY: back pain M54.9 COMPARISON: XR chest 06/19/2021 FINDINGS: LUNGS: Trace amount stranding and small opacities within lateral left lung base/costophrenic angle. PLEURA: No pneumotho rax, effusion, or pleural thickening. MEDIASTINUM: No visi ble mass or adenopathy. CARDIAC: No cardiome jamari or cardiac silhouette abnormality. RIBS: No significant arthropathy or acute abnormality. OTHER: Negative. X R/XR ribs RT 2V IMPRESSION: 1. No appreciable ri b abnormality. 2. Trace amount of lingular infiltrates versus atelectasis. Electronically authenticated by: OCTAVIANO MARIA Date: 08/11/2024 11:39 Dictated By: Octaviano Maria M.D. Signed By: 08/11/24 1141 DD/ 1139 TD/TT: Electric Pile Driver Operator: XR thoracic spine 3V Reviewed date:08/11/2024 03:30:24 PM Interpretation: Performing Lab: Notes/Report: Source Facility: [facility] [address] [place]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
--- OUTSIDE RECORDS SUMMARY | 2025-02-12 07:50 | XMS_ITS | Clinical Summary ---
Author Organization [facility] Address [address] [place] [address] Care Team Providers Care Journeyman Tool And Die Maker Name Role Phone Unallocated, Noms Provider Primary Care Provi blu Tammie Butterfield MD Unavailable [phone] ViscLogan gama DO Unavailable [phone] Allergies Active Allergy Reactions Criticality Noted Date Comments Cat Dander 09/20/2023 Other Reaction(s): Unknown Other 09/20/2023 Other Reaction(s): Unknown Tramadol Hives,Itching 12/11/2016 Other Reaction(s): hives, nausea Itching & hives Medications omeprazole (PriLOSEC) [address] capsule Take 40 mg by mouth in the morning. Take before meals. 08/13/2023 Active Multiple Vitamin (Multi-Vitamin) tablet Take 1 tablet by mouth in the morning. Active atorvastatin (Lipitor) 40 MG tablet Take 40 mg by mouth Daily Active cholecalciferol 25 MCG (1000 UT) capsule Take 10 mcg by mouth Active Magnesium 400 MG capsule Take 400 mg by mouth Daily Active irbesartan (Avapro) 150 MG tablet Take 150 mg by mouth Daily 08/27/2024 Active alendronate (Fosamax) 70 MG tablet Take 70 mg by mouth every 7 (seven) days 08/25/2024 Active Family History Medical History Relation Name Comments Lung cancer Brother Bone cancer Father Brain cancer Father Stomach cancer Maternal Grandfather Hypertension Maternal Grandmother Allergies Mother Hyperlipidemia Mother Hypertension Mother Colon cancer Mother's Brother Hypertension Paternal Grandfather Hypertension Paternal Grandmother Lung cancer Paternal Grandmother Relation Name Status Comments Brother (Age 46) Child 1 chil d Daughter 1 Daughter Father Maternal Grandfather Maternal Grandmother Mother Alive Mother's Brother Paternal Grandfather Paternal Grandmother Son 3 Sons Social History Tobacco Use Types Packs/Day Years Used Date Smoking Tobacco: Former Cigarettes Smokeless Tobacco: Never Tobacco Cessation:Counseling Given: Not Answered Comments:> Tobacco Control 04/15/2020 - Last smoked 6-12 months ago - Moderate cigarette smoker (10-19 cigs/ day) Alcohol Use Standard Drinks/Week Comments Yes 0 (1 standard drink = 0.6 oz pure alcohol) Caffeine intake: More thjan 4 cups per day, Coffee AUDIT-C Answer Date Recorded Q1: How often do you have a drink containing alc ohol? Monthly or less 09/20/2023 Q2: How many drinks containi ng alcohol do you have on a typical day when you are drinking? 1 or 2 09/20/2023 Q3: How often do you have si x or more drinks on one occasion? Never 09/20/2023 PHQ-2 Answer Date Recorded Patient Health Questionnaire-2 Score 0 09/20/2023 Comments No Sex and Gender Information Value Date Recorded Sex Assigned at Female 08/07/2023 10:57 AM EST Legal Sex Female 7:09 PM EDT Gender Identity Female 08/07/2023 10:57 AM EST Sexual Orientation Not on file Last Filed Vital Signs Vital Sign Reading Time Taken Comments Blood Pressure 122/76 10/07/2024 11:04 AM EDT Pulse - - Temperature - - Respiratory Rate - - Oxygen Saturation - - Inhaled Oxygen Concentration - - Weight 89.4 kg (197 lb) 10/07/2024 11:04 AM EDT Height 158.8 cm (5' 2.5 ) 09/20/2023 10:37 AM ES T Body Mass Index 35.46 09/20/2023 10:37 AM EST Plan of Treatment Upcoming Encounters Date Type Department Care Team (Late st Contact Info) Description 10/13/2025 11:45 AM EDT Office Visit [facility] [address] [place] [address] Logan Rankin, DO [address] [place] [address] Health Maintenance Due Date Last Done Comments CT Colonography 1965 FIT-DNA 1965 FIT 1965 FOBT 1965 Sigmoidoscopy 1965 Mammogram 04/24/2023 04/24/2022, 09/2019, 03/24/2019, Additional history exists Influenza Vaccine (#1) 2025 2, 05/22/2020, 05/18/2020, Additional history exists Colonoscopy 12/14/2025 12/15/2015 Colorectal Cancer Screening 12/14/2025 Procedures Procedure Name Priority Date/Time Associated Diagnosis Comments BI MAMMOGRAM SCREENING BILATERAL Routine 04/24/2022 12:00 PM EDT Post-void dribbling Encounter for screening for malignant neoplasm of vagina Frequency of micturition Encounter for screening for osteoporosis Postmenopausal atrophic vaginitis Other specified noninflammatory disorders of vulva and perineum Asymptomatic menopausal state Flushing Encounter for gynecological examination (general) (routine) with abnormal findings Nocturia Encounter for screening mammogram for malignant neoplasm of breast from Last 3 Months or Most Recently Relevant to Health Maintenance Results * Bilateral screening mammogram (04/24/2022 12:00 PM EDT) Anatomical Region Laterality Modality Breast Bilateral Mammography Narrative 04/24/2022 12:00 PM EDT PERFORMED AT [facility] LOCATION:[id number] Procedure Note CONVERSION, GENERIC - 01/25/2023 PERFORMED AT [facility] LOCATION:[id number] Logan Rnakin DO IMG BI PROCEDURES Final Resul t from Last 3 Months or Most Recently Relevant to Health Maintenance Insurance [facility] Care Teams Journeyman Tool And Die Maker Relationship Specialty Start Date End Date Unallocated, Noms Provider, [address] [place], [place] [id number] PCP - General Family Medicine 09/20/23 Tammie Butterfield MD [address], [place] [id number] Referring Physician Family Medicine 09/20/23 Logan Rankin DO [address] [facility] [address] [place], [place] [id number] Referring Physician Obstetrics and Gynecology 09/20/23
--- OUTSIDE RECORDS SUMMARY | 2025-02-12 07:50 | XMS_ITS | Clinical Summary ---
Author Organization [facility] Address [address], [address] [place] [address] Care Team Providers Care Urgent Care Nurse Practitioner Name Role Phone Tammie Judge INTERNAL RECRUITER - NEWSPAPER JOURNALIST Primary Care Provider Unavailable Allergies Active Allergy Reactions Criticality Noted Date Comments Tramadol Itching 09/12/2018 Itching & hives Medications atorvastatin (LIPITOR) 40 MG tablet Take 40 mg by mouth every evening Active Active Problems Problem Noted Date Diagnosed Date Cervical disc herniation 01/29/2019 Cervical stenosis of spine 01/29/2019 Tobacco use disorder 01/29/2019 Hyperlipidemia 12/11/2016 Osteopenia 12/11/2016 Family History Medical History Relation Name Comments Cancer Brother x 1 small cell lung cancer No Known Problems Daughter x 1 Cancer Father lung & brain ca ncer High Blood Pressure Mother High Cholesterol Mother High Blood Pressure Son 1 x 2 Other Son 2 x 1 ( twin ) a t age 20 in MVA Relation Name Status Comments Brother x 1 Daughter x 1 Alive Father Mother Alive Sister none Son 1 x 2 Alive Son 2 x 1 Social History Tobacco Use Types Packs/Day Years Used Date Smoking Tobacco: Every Day Cigarettes 1 30 Smokeless Tobacco: Never Alcohol Use Standard Drinks/Week Comments Yes 0 (1 standard drink = 0.6 oz pur e alcohol) rare social Comments No Sex and Gender Information Value Date Recorded Sex Assigned at Not on file Legal Sex Female 11:12 AM EST Gender Identity Not on file Sexual Orientation Not on file Last Filed Vital Signs Vital Sign Reading Time Taken Comments Blood Pressure 131/71 02/05/2019 12:30 PM EDT Pulse 74 02/05/2019 12:30 PM EDT Temperature 36.2 C (97.2 F) 05/01/2019 10:07 AM EDT Respiratory Rate 20 02/05/2019 12:30 PM EDT Oxygen Saturation 97% 02/05/2019 12:30 PM EDT Inhaled Oxygen Concentration - - Weight 74.8 kg (165 lb) 05/01/2019 10:07 AM EDT Height 160 cm (5' 3 ) 05/01/2019 10:07 AM EDT Body Mass Index 29.23 05/01/2019 10:07 AM EDT Plan of Treatment Not on file Medical Devices Implanted Type Area Rack Worker Device Identifier Shelf Expiration Date Model / Serial / Lot Triad Cc 8 X 11 X 14mm - [id number] Implanted:Qty : 1 on 02/05/2019 by You Fink MD at [facility] Bone/Jeane t/Tissue/ Human/Syn th N/A: Spine Cervical [employer]-PMM 09/18/2023 [id number] / [id number] / Screw [place] T Susi Self Tap 4x13mm Implanted:Qty : 4 on 02/05/2019 by You Fink MD at [facility] Spine N/A: Spine Cervical [employer]PMM [id number] / / Plate [place] T 24mm Lvl 1 Implanted:Qty : 1 on 02/05/2019 by You Fink MD at [facility] Spine N/A: Spine Cervical [employer]PMM [id number] / / Explanted Type Area Rack Worker Device Identifier Shelf Expiration Date Model / Serial / Lot Pin Distraction Screw Vertebral 12mm Explanted:Qty: 2 on 02/05/2019 by You Fink MD at [facility] Screw/Pl ate/Nail /Ramiro N/A: Spine Cervical [employer]PMM [id number] / / Insurance [employer] Care Teams Urgent Care Nurse Practitioner Relationship Specialty Start Date End Date Tammie Judge APRN - NEWSPAPER JOURNALIST PCP - General Nurse Practitioner, Family 09/16/18
--- OUTSIDE RECORDS SUMMARY | 2025-02-12 07:50 | XMS_ITS | Clinical Summary ---
Author Organization doo s tem Address [id number] [address] [place] [address] Care Team Providers Care Wet Process Miller Name Role Phone Unavailable Primary Care Provider Unavailabl e Allergies Active Allergy Reactions Criticality Noted Date Comments Tramadol Hives 12/11/2016 Medications multivitamin (THERAGRAN) tablet Take 1 tablet by mouth daily. Active calcium carbonate (OS-ROBERT) 600 mg (1,500 mg) tablet Take 600 mg by mouth 2 (two) times a day with meals. Active b complex vitamins tablet Take 1 tablet by mouth daily. Active atorvastatin (LIPITOR) 40 mg tablet Take 1 tablet by mouth daily. 12/10/2016 Active Active Problems Problem Noted Date Diagnosed Date Hyperlipidemia 12/11/2016 Osteopenia 12/11/2016 Family History Medical History Relation Name Comments Cancer Brother small cell lung Cancer Father lung Cancer Maternal Grandfather stomach Colon cancer Maternal Uncle Hypertension Mother Relation Name Status Comments Brother Father Maternal Grandfather Maternal Uncle Mother Social History Tobacco Use Types Packs/Day Years Used Date Smoking Tobacco: Every Day Cigarettes 1 30 Alcohol Use Standard Drinks/Week Comments Yes 0 (1 standard drink = 0.6 oz pur e alcohol) occassional Childcare Answer Date Recorded Childcare Unknown 12/31/2018 Employment Answer Date Recorded Employment Unknown 12/31/2018 Purpose - Life Answer Date Recorded Purpose and direction in life Unknown Comments No Sex and Gender Information Value Date Recorded Sex Assigned at Not on file Legal Sex Female 11:59 AM EDT Gender Identity Not on file Sexual Orientation Not on file Last Filed Vital Signs Vital Sign Reading Time Taken Comments Blood Pressure 110/60 12/11/2016 9:59 AM EDT Pulse 70 12/11/2016 9:59 AM EDT Temperature - - Respiratory Rate 16 12/11/2016 9:59 AM EDT Oxygen Saturation - - Inhaled Oxygen Concentration - - Weight 74.8 kg (165 lb) 12/11/2016 9:59 AM EDT Height 160 cm (5' 3 ) 12/11/2016 9:59 AM EDT Body Mass Index 29.23 12/11/2016 9:59 AM EDT Plan of Treatment Health Maintenance Due Date Last Done Comments Depression Screening 1977 Tobacco Screening 1977 Adult BMI Screening 1983 DTaP,Tdap and Td Vaccines (1 - Tdap) 1984 Pap Smear 1986 Zoster (Shingles) Vaccine (1 of 2) 2015 Influenza Vaccine 03/22/2025 Medical Devices Not on file Insurance [employer] [place] [address]
--- OUTSIDE RECORDS SUMMARY | 2025-02-12 07:50 | XMS_ITS | Patient Health Record ---
Author Organization [facility] Address [address] [place] [address] Care Team Providers Care Sand Cutter Name Role Phone Tammie Butterfield Primary Care Provider Unavailabl Mil Tan Unavailable [phone] Emeterio Escalante Unavailable [phone] Charmaine Figueroa Unavailable Allergies Allergen (clinical drug ingredient) Drug/Non Drug Allergy documented on EMR Reaction Allergy Type Onset Date Status tramadol traMADol Unknown Drug Allergy Active Reason For Referral Reason APPROVED............ ...........................NOT SCHEDULED....................................[employer] [facility] THORAC[facility] TO BE DONE AT [facility] Diagnosis 1 Compression fracture of T4 vertebra with routine healing, subsequent encounter (S22.040D) Referral Organization [facility] Referring Provider First Name Mil Referring Provider Last Name [facility] Referring Provider Speciality Orthopedic Surgery Referred Organization [facility] Referred Address [address] [place], [place],[address], Procedure 1 MRI Thoracic Spine w /o Dye ([id number]) General Notes Nuha Mosley 2024 08:43:11 AM >, Tootie Mathew 08/14/2024 09:06:33 AM > WAITING ON TODAY'S OFFICE NOTE, Tootie Mathew 08/19/2024 11:28:39 AM > AUTHORIZATION REQUEST SUBMITTED WITH CLINICALS VIA R PROVIDER PORTAL, ., Tootie Mathew 08/26/2024 08:15:15 AM > AUTHORIZATION # [id number] APPROVED AND VALID 08/21/24-11/19/24 PER [facility] PROVIDER PORTAL. SCANNED INTO CHART AND FAXED TO BHAVESH.Trudy Sara 08/26/2024 09:40:44 AM > order faxed Referral Priority Routine Reason REFERRAL FOR DR FONSECA FOR KYPHOPLASTY Diagnosis 1 Compression fracture of T4 vertebra with routine healing, subsequent encounter (S22.040D) Referral Organization [facility] Referring Provider First Name Mil Referring Provider Last Name [facility] Referring Provider Speciality Orthopedic Surgery Referred Organization Pain clinic Referred Provider MORGAN FONSECA Referred Provider Specialty Anesthesiolo gy General Notes Nuha Mosley 2024 08:44:17 AM >, Nuha Mosley 09/03/2024 12:08:29 PM >REFERRAL FAXED Referral Priority Routine Social History Tobacco Use: Social History Observation Description Date Details (start date - stop date) Former Smoker NA - 06/24/2019 AUDIT-C (Standard) Question Answer Notes Did you have a drink contain ing alcohol in the past year? Yes How often did you have a dri nk containing alcohol in the past year? Declined to specify (0 point) How many drinks did you have on a typical day when you were drinking in the past year? Declined to specify (0 point) How often did you have six o r more drinks on one occasion in the past year? Declined to specify (0 point) Points 0 Interpretation Negative Tobacco Control (Standard) Question Answer Notes Tobacco use: Former smoker When did you stop smoking? 06/24/2019 How long has it been since y ou last smoked? 5-10 years Additional Findings: Tobacco non-user Ex-heavy c igarette smoker (20-30/day) Problems Problem Type SNOMED Code ICD Code Onset Dates Problem Status W/U Status Risk Notes Problem 78057742 Coccygeal pain (M53.3) Active confirmed Problem 994688272 Compression fracture of T4 vertebra with routine healing, subsequent encounter (S22.040D) Active confirmed Vital Signs Height 5'3 in 08/14/2024 Weight 195 lbs 08/14/2024 BMI 34.54 08/14/2024 Encounters Encounter Location Date Provider Diagnosis [facility] [address] [place] [address] 08/14/2024 Emeterio Cherryo Compression fracture of T4 vertebra with routine healing, subsequent encounter S22.040D and Coccygeal pain M53.3 [facility] [facility] [address] [facility] [address] [place] [address] 08/28/2024 [place]arm[facility] Compression fracture of T4 vertebra with routine healing, subsequent encounter S22.040D [facility] [address] [place] [address] 09/09/2024 Mil Seo Assessments Encounter Date Diagnosis (ICD Code) Assessment Notes Treatment Notes Treatment Clinical Notes Section Notes 08/14/2024 Coccygeal pain (ICD-10 - M53.3) 1. T4 vertebral compression fracture, acute 2. Coccydynia 08/14/2024 Compression fracture of T4 vertebra with routine healing, subsequent encounter (ICD-10 - S22.040D) 1. T4 vertebral compression fracture, acute 2. Coccydynia 08/28/2024 Compression fracture of T4 vertebra with routine healing, subsequent encounter (ICD-10 - S22.040D) 1. T4 compression fracture 08/14/2024 Other Plan established by Dr. Justice. Patient seen and evaluated by Dr. Justice today. The T4 level is difficult to brace and patient would like to consider a kyphoplasty. We will set her up with a MRI of the thoracic spine. We will refer her to pain management closer to home to see if she is a candidate for a kyphoplasty. She was also given a medical doughnut to help alleviate the tailbone pain. We will see her back in our office on a as needed basis. The patient is very much in agreement with the treatment and/or diagnostic plan set forth and all questions were answered to the patient's satisfaction. Thanks once again. If we can be of further service to your patients with disorders of the spine, cervical, thoracic, or lumbar, please do not hesitate to contact Dr. Justice. Best regards, 1. T4 vertebral compression fracture, acute 2. Coccydynia 08/28/2024 Other Plan established by Dr. Justice. I discussed MRI results with patient today and also discussed bracing versus referral for kyphoplasty. Patient would like to be referred for consideration of kyphoplasty. I will place a referral to Dr. Jake Vega. We can see the patient back on an as-needed basis. The patient is very much in agreement with the treatment and/or diagnostic plan set forth and all questions were answered to the patient's satisfaction. Thanks once again. If we can be of further service to your patients with disorders of the spine, cervical, thoracic, or lumbar, please do not hesitate to contact Dr. Justice. Best regards, 1. T4 compression fracture Plan Of Treatment Pending Test Test Name Order Date Sacrum & Coccyx 08/14/2024 DONUT 08/14/2024 MRI : Thoracic Spine W/O Contrast - [id number] 08/14/2024 Insurance Providers Payer Name Payer Address Payer Phone Subscriber Number Group Number Insured Name Patient Relationship to Insured Coverage Start Date Coverage End Date [employer] [address] [address] [place] [address] [id number] EVELIO AGUDELO Self - patient is the insured Medical (General) History Medical History History ICD Code Hypertension Bronchitis GERD: Surgical History Surgery Date(Month/Year) A/P repair Cyst removed - Right Breast Neck fusion 2016
--- OUTSIDE RECORDS SUMMARY | 2025-02-12 07:50 | XMS_ITS | Encounter Summary ---
Author Organization [facility] Address [address] [place] [address] Care Team Providers Care Seal Extrusion Operator Name Role Phone Unallocated, Noms Provider Primary Care Provi blu Tammie Butterfield MD Unavailable [phone] Logan Rankin DO Unavailable [phone] Encounter Details Date Type Department Care Team (Late st Contact Info) Description 08/12/2024 Orders Only [facility] [address] [place] [id number] Tammie Butterfield MD [address] [place], [place] [id number] Social History Tobacco Use Types Packs/Day Years Used Date Smoking Tobacco: Former Cigarettes Smokeless Tobacco: Never Comments:> Tobacco Control 0 04/15/2020 - Last smoked 6-12 months ago [...] AM EST Sexual Orientation Not on file documented as of this encounter Plan of Treatment Upcoming Encounters Date Type Department Care Team (Late st Contact Info) Description 10/13/2025 11:45 AM EDT Office Visit [facility] [address] [place] [id number] Logan Rankin DO [address] [place] [address] documented as of this encounter Procedures Procedure Name Priority Date/Time Associated Diagnosis Comments XR THORACIC SPINE 3 VIEWS Routine 08/12/2024 11:32 AM EST documented in this encounter Results * XR thoracic spine 3 views (08/12/2024 11:32 AM EST) Anatomical Region Laterality Modality Spine, T-spine Radiographic Nancy ging Tammie Butterfield MD IMG XR PROCEDURES Final Result documented in this encounter Visit Diagnoses Not on filedocumented in this encounter Care Teams Seal Extrusion Operator Relationship Specialty Start Date End Date Unallocated, Noms MD Mac[facility] [place] [address] PCP - General Family Medicine 09/20/23 Tammie Butterfield MD [address] [place] [address] Referring Physician Family Medicine 09/20/23 Logan Rankin DO [address] [place] [address] Referring Physician Obstetrics and Gynecology 09/20/23 documented as of this encounter
--- OUTSIDE RECORDS SUMMARY | 2025-02-12 07:51 | XMS_ITS | Clinical Summary ---
Author Organization [facility] Address [address] [place] [address] Care Team Providers Care Value Stream Coach Name Role Phone Tammie Butterfield KATHARINE Primary Care Provider [phone] Allergies Active Allergy Reactions Criticality Noted Date Comments Cat Dander Unknown 09/20/2023 Other Reaction(s): Unknown Other Unknown 09/20/2023 Other Reaction(s): Unknown Tramadol Hives,Itching,Unknown 12/11/2016 Itching & hives Other Reaction(s): hives, nausea Itching & hives Medications omeprazole (PriLOSEC) [address] capsule Take 40 mg by mouth before breakfast. Active irbesartan (Avapro) 150 mg tablet Take 150 mg by mouth in the morning. Active alendronate (Fosamax) 70 mg tablet Take 70 mg by mouth once a week. 5 Active atorvastatin (Lipitor) 40 mg tablet Take 40 mg by mouth in the morning. Active calcium carbonate 600 mg calcium (1,500 mg) tablet Take 600 mg by mouth in the morning. Active multivitamin tablet Take 1 tablet by mouth in the morning. Active magnesium aspart,citrate,ox lucas (Triple Magnesium Complex) 400 mg magnesium capsule Take 400 mg by mouth in the morning. Active aspirin 81 mg EC tablet Take 81 mg by mouth in the morning. Active amLODIPine (Norvasc) 5 mg tabletIndications :Primary hypertension Take 1 tablet (5 mg) by mouth in the morning. 90 tablet 3 5 01/20/20 26 Active aspirin/calcium/m ag/aluminum (ASPRIDROX ORAL) Take 81 mg by mouth in the morning. 01/19/20 25 Discontinu ed(Other) amLODIPine (Norvasc) 5 mg tabletIndications :Primary hypertension Take 1 tablet (5 mg) by mouth in the morning. 90 tablet 3 5 01/20/20 25 Discontinu ed(Reorder ) Active Problems Problem Noted Date Diagnosed Date Primary hypertension 01/18/2025 Mixed hyperlipidemia 01/18/2025 Nonrheumatic aortic valve insufficiency 01/19/20 25 Encounters Date Type Department Care Team Description 01/19/2025 Orders Only [facility] [address] [facility] [place] [address] ProviderJose MD 01/19/2025 Refill [facility] [address] [facility] [place] [address] Faye Tripathi MA Primary hypertension 01/18/2025 3:15 PM EDT Office Visit [facility] [address] [facility] [place] [address] Benja Gregory MD Primary hypertension (Primary Dx); Mixed hyperlipidemia; Nonrheumatic aortic valve insufficiency; Palpitations; Shortness of breath; Abnormal EKG 01/18/2025 Orders Only [facility] [address] [facility] [place] [address] Faye Tripathi MA Nonrheumatic aortic valve insufficiency (Primary Dx); Palpitations from Last 3 Months Family History Medical History Relation Name Comments Cancer Father Hypertension Mother Relation Name Status Comments Brother Father Mother Alive Sister Alive Social History Tobacco Use Types Packs/Day Years Used Date Smoking Tobacco: Former Cigarettes Smokeless Tobacco: Never Tobacco Cessation:Counseling Given: Not Answered Alcohol Use Standard Drinks/Week Comments Yes 6 (1 standard drink = 0.6 oz pur e alcohol) 6 beers per week [place] [facility] Answer Date Rec orded Fear of Current or Ex-Partner Not on file Emotionally Abused Not on file 09/12/2023 Physically Abused Not on file 09/12/2023 Sexually Abused Not on file 09/12/2023 Physically or Sexually Abused Not on file Comments Unknown Sex and Gender Information Value Date Recorded Sex Assigned at Not on file Legal Sex Female 10:46 PM EDT Gender Identity Not on file Sexual Orientation Not on file Last Filed Vital Signs Vital Sign Reading Time Taken Comments Blood Pressure 133/84 01/18/2025 4:00 PM EDT Pulse 74 01/18/2025 4:00 PM EDT Temperature - - Respiratory Rate - - Oxygen Saturation 97% 01/18/2025 4:00 PM EDT Inhaled Oxygen Concentration - - Weight 91.2 kg (201 lb) 01/18/2025 4:00 PM EDT Height 160 cm (5' 3 ) 01/18/2025 4:00 PM EDT Body Mass Index 35.61 01/18/2025 4:00 PM EDT Plan of Treatment Health Maintenance Due Date Last Done Comments CT Colonography 1965 Colonoscopy 1965 Colorectal Cancer Screening 1965 FIT-DNA 1965 FIT 1965 FOBT 1965 Sigmoidoscopy 1965 Depression Screening 1977 Hepatitis B Vaccines (1 of 3 - 19+ 3-dose series) 1984 Pneumococcal Vaccine: Pediatrics (0 to 5 Years) and At-Risk Patients (6 to 64 Years) (1 of 2 - PCV) 1984 Pap Smear 1986 Cervical Cancer Screening 1995 HPV/Cotest 1995 Zoster Vaccines (1 of 2) 2015 COVID-19 Vaccine (1 - season) 2024 Mammogram 04/24/2024 04/24/2022 Influenza Vaccine (#1) 2025 2, 05/22/2020, 05/18/2020, Additional history exists Adult Tetanus 05/16/2030 05/16/2020 HIB Vaccines Aged Out No longer eligi ble based on patient's age to complete this topic HPV Vaccines Aged Out No longer eligi ble based on patient's age to complete this topic IPV Vaccines Aged Out No longer eligi ble based on patient's age to complete this topic Meningococcal B Vaccine Aged Out No l onger eligible based on patient's age to complete this topic Meningococcal Vaccine Aged Out No jose antonio parmjit eligible based on patient's age to complete this topic Rotavirus Vaccines Aged Out No longer eligible based on patient's age to complete this topic Procedures Procedure Name Priority Date/Time Associated Diagnosis Comments ECG 12-LEAD Routine 01/18/2025 9:07 AM EDT from Last 3 Months Results * ECG 12 lead (01/18/2025 9:07 AM EDT) us Historical Provider ECG ORDERABLES Final Res ult from Last 3 Months Insurance [facility] [employer] Care Teams Value Stream Coach Relationship Specialty Start Date End Date Tammie Butterfield CNP [facility], [place] [address] PCP - General Family Medicine 01/15/25
--- OUTSIDE RECORDS SUMMARY | 2025-02-12 07:51 | XMS_ITS | CCD ---
Author Organization [facility] Care Team Providers Care Proration Clerk Name Role Phone VICENTE BARAKAT H. Referring Unavailable VANCE, TAMMIE S Primary Care Unavailable ROSHNI, VICENTE H. Admitting Unavailable ROSHNI, VICENTE H. Attending Unavailable ROSHNI, VICENTE H. Referring Unavailable VANCE, TAMMIE S Primary Care Unavailable DAISY, TAMMIE Attending Unavailable TAMMIE VILLA Consulting Unavailable DAISY, TAMMIE Primary Care Unavailable DAISY, TAMMIE Admitting Unavailable DAISY, TAMMIE Primary Care Unavailable AARTI ., DR FUNK Attending Unavailable AARTI ., DR FUNK Consulting Unavailable HOY ., DR FUNK Admitting Unavailable Octaviano Maria Consulting Unavailable DAISY, TAMMIE Primary Care Unavailable WEST, DR BLAISE Lowe Consulting Unavailable DAISY, TAMMIE Admitting Unavailable DAISY, TAMMIE Attending Unavailable DAISY, TAMMIE Consulting Unavailable Ly, DO Debo Zamora Attending Provider MARCEL Villa-C Tammie Kate Primary Care Provider ROSA CARRION Attending Unavailable Daisy PODIATRIC PHYSICIAN-C Tammie Kate Primary Care Provider 1( [phone] Joshua Maier DO N Attending Provider Daisy Tammie Kate Primary Care Unavailable Bial[place]i, Joshua N Admitting Unavailable [place]ial[place], Joshua N Attending Unavailable Calini, Joshua N Attending Unavailable Daisy, Tammie Kate Primary Care Unavailable [place], Joshua N Admitting Unavailable [place], Joshua N Attending Unavailable Daisy, Tammie Kate Primary Care Unavailable [place], Joshua N Admitting Unavailable Daisy, Tammie Kate Primary Care Unavailable LyDebo Admitting Unavailable Debo Padilla Attending Unavailable ELIZABETH GALLARDO Attending Unavailable Allergies Allergy Classification Reported Allergen(s) Allergy Type Date of Onset Reaction(s) Facility (8 sources) Chlorhexidine Drug Allergy 1 Rash [facility] Repository (9 sources) traMADol; Translations: [TRAMADOL] Drug Allergy 7 Hives [facility] Repository (8 sources) Isopropyl Alcohol; Translations: [isopropyl alcohol] Drug Allergy 4 [facility] (1 source) Chlorhexidine Drug Allergy 5 [facility] Repository (1 source) traMADol Drug Allergy 5 [facility] Repository (1 source) CAT DANDER; Translations: [CAT DANDER] Propensity to adverse reactions to drug (disorder) 4 [facility] Repository (1 source) OTHER; Translations: [OTHER] Propensity to adverse reactions (disorder) 4 [facility] Repository Medications Current Medications Medication Drug Class(es) Dates Sig (Normalized) Sig (Original) alendronic acid 70 mg oral tablet (6 sources) Bisphosphonate Start: 09-14-2024 take 1 tablet by mouth every week Alendronate 70 mg tablet Active 70 MG PO every week September 14, 2024 1:00am aspirin 81 mg delayed release oral tablet (6 sources) Platelet Aggregation Inhibitor, Nonsteroidal Anti-inflammatory Drug Start: 09-14-2024 take 1 tablet by mouth once daily Aspirin 81 mg tablet,delayed release (DR/EC) Active 81 MG PO Daily September 14, 2024 1:00am atorvastatin 40 mg oral tablet (8 sources) HMG-CoA Reductase Inhibitor Start: 04-17-2024 take 1 tablet by mouth once daily Atorvastatin 40 mg tablet Active 40 MG PO Daily April 17, 2024 12:00am irbesartan 150 mg oral tablet (8 sources) Angiotensin 2 Receptor Erich Start: 04-17-2024 take 1 tablet by mouth once daily Irbesartan 150 mg tablet Active 150 MG PO Daily April 17, 2024 12:00am lidocaine 0.05 mg/mg medicated patch (5 sources) Antiarrhythmic, Amide Local Anesthetic Start: 09-14-2024 apply 1 dose topically once daily as needed for pain Lidocaine 5 % adhesive patch,medicated Active 2 PATCH TOPICAL Daily as needed for pain 60 30 September 14, 2024 1:00am leave on most painful area for up to 12 hrs omeprazole 40 mg delayed release oral capsule (15 sources) Proton Pump Inhibitor Start: 04-17-2024 End: 05-01-2024 take 1 capsule by mouth once daily Omeprazole 40 mg capsule,delayed release(DR/EC) Active 40 MG PO Daily 90 May 01, 2024 12:00am ubiquinol 100 mg oral capsule (6 sources) Start: 09-14-2024 take 1 capsule by mouth twice daily Coq10 (Ubiquinol) (Qunol Lasha Coq10) 100 mg capsule Active 100 MG PO Twice daily September 14, 2024 1:00am Completed/Discontinued Medications Medication Drug Class(es) Dates Sig (Normalized) Sig (Original) meloxicam 15 mg oral tablet (8 sources) Nonsteroidal Anti-inflammatory Drug Start: 04-17-2024 End: 09-14-2024 take 1 tablet by mouth once daily Meloxicam 15 mg tablet Discontinued 15 MG PO Daily April 17, 2024 12:00am September 14, 2024 10:12am Problems Active Problems Problem Classification Problem Date Documented Da te Episodic/Chronic Abdominal pain (9 sources) Indigestion; Translations: [Epigastric pain] 04-17-2024 Episodic Cardiac dysrhythmias (2 sources) Palpitations; Translations: [Palpitations] Onset: 5 Episodic Disorders of lipid metabolism (2 sources) Mixed hyperlipidemia; Translations: [Mixed hyperlipidemia] Onset: 5 Chronic Esophageal disorders (9 sources) Gastroesophageal reflux disease; Translations: [Gastro-esophageal reflux disease without esophagitis] Onset: 4 04-17-2024 Chronic Essential hypertension (2 sources) Essential (primary) hypertension; Translations: [Essential (primary) hypertension] Onset: 5 Chronic Heart valve disorders (2 sources) Nonrheumatic aortic (valve) insufficiency; Translations: [Nonrheumatic aortic (valve) insufficiency] Onset: 5 Chronic Other fractures (6 sources) Compression fracture of thoracic spine; Translations: [Wedge compression fracture of fourth thoracic vertebra, subsequent encounter for fracture with routine healing] 09-14-2024 Episodic Other fractures (14 sources) Wedge compression fracture of fourth thoracic vertebra, subsequent encounter for fracture with routine healing; Translations: [Aftercare for healing traumatic fracture of vertebrae] Onset: 5 09-14-2024 Episodic Other gastrointestinal disorders (8 sources) Dysphagia; Translations: [Dysphagia, unspecified] 04-17-2024 Episodic Other gastrointestinal disorders (2 sources) Dysphagia, unspecified; Translations: [Dysphagia, unspecified] 04-17-2024 Episodic Other lower respiratory disease (2 sources) Shortness of breath; Translations: [Shortness of breath] Onset: 5 Episodic Other nervous system disorders (6 sources) Chronic pain; Translations: [Other chronic pain] 09-14-2024 Chronic Other nervous system disorders (5 sources) Other chronic pain; Translations: [Other chronic pain] 09-14-2024 Chronic Other screening for suspected conditions (not mental disorders or infectious disease) (16 sources) Encounter for screening mammogram for malignant neoplasm of breast; Translations: [Patient encounter status] Onset: 2 Episodic Residual codes; unclassified (2 sources) Family history of malignant neoplasm of digestive organs; Translations: [Family history of malignant neoplasm of gastrointestinal tract] Onset: 2 04-17-2024 Episodic Residual codes; unclassified (8 sources) Family history of cancer of colon; Translations: [Family history of malignant neoplasm of digestive organs] 04-17-2024 Episodic Screening and history of mental health and substance abuse codes (4 sources) Personal history of nicotine dependence; Translations: [PERSONAL HISTORY OF NICOTINE DEPEND] Onset: 3 Episodic Spondylosis; intervertebral disc disorders; other back problems (12 sources) Backache; Translations: [Dorsalgia, unspecified] Onset: 5 09-14-2024 Episodic Past or Other Problems Problem Classification [...] Test Name Value Interpretation Reference Range Facility Orders Onlyon 01-19-2025 Orders Only [id number] Edilma Agudelo 1965 F Date Provider Department Center 01/19/2025 [id number], HISTORICAL EVAN Pickett Family History Problem Relation Age of Onset Hypertension Mother Cancer Father Family Status - Relation Status Age at Mother Alive Father Sister Alive Brother Normal [facility] Office Visiton 01-18-2025 Follow-up visit [id number] Edilma Agudelo 1965 F Date Provider Department Center 01/18/2025 Carly-ELIZABETH GALLARDO EVAN Pickett Family History Problem Relation Age of Onset Hypertension Mother Cancer Father Family Status - Relation Status Age at Mother Alive Father Sister Alive Brother Level of Service:85633 NM OFFICE/OUTPATIENT NEW MODERATE MDM 45 MINUTES (25) Normal [facility] X-ray reportOrdered By: Jesse Julio on 12-09-2024 Study report [facility] [place] [address] XRay Report Signed Patient: Edilma Agudelo MR#: [id number] 1753 : 1965 Acct:[id number] Age/Sex: 59 / F ADM Date: 5 Loc: XD Room: Type: [facility] Attending Dr: Joshua Maier DO Copies to: Joshua Maier DO~ Ordering Provider: Joshua Maier DO Date of Service: 12/09/24 XR/XR thoracic spine 3V*: S22.040D - Wedge compression fracture of fourth thoracic ... XR thoracic spine 3V* 12/09/2024 8:36 AM SIGNS AND SYMPTOMS: T4 compression fracture, follow-up PROTOCOLS: frontal and lateral radiographs of the thoracic spine COMPARISON: 10/28/1934 FINDINGS: There is redemonstration of anterior wedging of the T4 vertebral body with compression of the superior endplate. This is unchanged when compared to the prior exam. The vertebral body heights are otherwise preserved. There is moderate disc height loss at T4-T5 and T5-6. There is mild disc height loss at T6-T7, T7-T8, and T8-T9. There is anterior fusion at C5-C6. There is moderate disc height loss at C4-C5 with anterior osteophyte formation similar to the prior study. XR/XR thoracic spine 3V* IMPRESSION: Unchanged compression deformity of the superior endplate of T4 with anterior wedging. Similar degenerative changes are noted. Impression dictated by: Jesse Julio M.D. 12/09/2024 10:34 AM Dictation Location: [place] [address] Transcribed By: [facility] 12/09/24 1034 Dictated By: Jesse Julio II, MD 12/09/24 1031 Signed By: 12/09/24 1034 [facility] Work Phone: XR thoracic spine 3V*on 11-20 XR thoracic spine 3V* [facility] [place] [address] [place] [address] XRay Report Signed Patient: Edilma Agudelo MR#: [id number] : 1965 Acct:[id number] Age/Sex: 59 / F ADM Date: 12/09/24 Loc: XD Room: Type: [facility] Attending Dr: Joshua Maier DO Copies to: Joshua Maier DO Ordering Provider: Joshua Maier DO Date of Service: 12/09/24 XR/XR thoracic spine 3V*: S22.040D - Wedge compression fracture of fourth thoracic ... XR thoracic spine 3V* 12/09/2024 8:36 AM SIGNS AND SYMPTOMS: T4 compression fracture, follow-up PROTOCOLS: frontal and lateral radiographs of the thoracic spine COMPARISON: 10/28/1934 FINDINGS: There is redemonstration of anterior wedging of the T4 vertebral body with compression of the superior endplate. This is unchanged when compared to the prior exam. The vertebral body heights are otherwise preserved. There is moderate disc height loss at T4-T5 and T5-6. There is mild disc height loss at T6-T7, T7-T8, and T8-T9. There is anterior fusion at C5-C6. There is moderate disc height loss at C4-C5 with anterior osteophyte formation similar to the prior study. XR/XR thoracic spine 3V* IMPRESSION: Unchanged compression deformity of the superior endplate of T4 with anterior wedging. Similar degenerative changes are noted. Impression dictated by: Jesse Julio M.D. 12/09/2024 10:34 AM Dictation Location: [facility]--24 Transcribed By: YARELIS 12/09/24 1034 Dictated By: Jesse Julio II, MD 12/09/24 1031 Signed By: 12/09/24 1034 Normal [facility] X-ray reportOrdered By: Abimael Herrera on 10-28-2024 Study report [address] [address] XRay Report Signed Patient: Edilma Agudelo MR#: [id number] 1753 : 1965 Acct:[id number] Age/Sex: 59 / F ADM Date: 5 Loc: XD Room: Type: [facility] Attending Dr: Joshua Maier DO Copies to: Joshua Maier DO~ Ordering Provider: Joshua Maier DO Date of Service: 10/28/24 XR/XR thoracic spine 3V*: S22.040D - Wedge compression fracture of fourth thoracic ... THORACIC SPINE - - 3 views CLINICAL HISTORY: Wedge compression fracture 4 thoracic vertebrae follow-up. COMPARISON: Thoracic spine 10/12/2024 FINDINGS: Wedge-shaped compression deformity involving the presumed T4 vertebral body is grossly unchanged from the prior study. Remaining vertebral body heights appearmaintained. Scattered endplate degenerative changes. Pedicles appear intact. XR/XR thoracic spine 3V* IMPRESSION: NO SIGNIFICANT CHANGE IN THORACIC SPINE FINDINGS WHEN COMPARED TO THE PRIOR STUDY FROM 10/12/2024. Impression dictated by: Jayme Herrera Jr., D.OLillaim10/28/2024 10:52 AM Dictation Location: [facility]--23 Transcribed By: YARELIS 10/28/24 1052 Dictated By: Jayme Herrera Jr, DO 10/28/24 1052 Signed By: 10/28/24 1052 [facility] XR thoracic spine 3V*on XR thoracic spine 3V* [address] [address] XRay Report Signed Patient: Edilma Agudelo MR#: [id number] : 1965 Acct:[id number] Age/Sex: 59 / F ADM Date: 10/28/24 Loc: XD Room: Type: [facility] Attending Dr: Joshua Maier DO Copies to: Joshua Maier DO Ordering Provider: Joshua Maier DO Date of Service: 10/28/24 XR/XR thoracic spine 3V*: S22.040D - Wedge compression fracture of fourth thoracic ... THORACIC SPINE - - 3 views CLINICAL HISTORY: Wedge compression fracture 4 thoracic vertebrae follow-up. COMPARISON: Thoracic spine 10/12/2024 FINDINGS: Wedge-shaped compression deformity involving the presumed T4 vertebral body is grossly unchanged from the prior study. Remaining vertebral body heights appear maintained. Scattered endplate degenerative changes. Pedicles appear intact. XR/XR thoracic spine 3V* IMPRESSION: NO SIGNIFICANT CHANGE IN THORACIC SPINE FINDINGS WHEN COMPARED TO THE PRIOR STUDY FROM 10/12/2024. Impression dictated by: Jayme Herrera Jr., Jameel10/28/2024 10:52 AM Dictation Location: [place] [address] Transcribed By: [facility] 10/28/24 1052 Dictated By: Jayme Herrera Jr, DO 10/28/24 1052 Signed By: 10/28/24 1052 Normal [facility] X-ray reportOrdered By: Geovanny Negrete on 10-12-2024 Study report [facility] [place] [address] XRay Report Signed Patient: Edilma Agudelo MR#: [id number] 1753 : 1965 Acct:[id number] Age/Sex: 59 / F ADM Date: 5 Loc: XD Room: Type: [facility] CLI Attending Dr: Joshua Maier DO Copies to: Joshua Maier DO~ Ordering Provider: Joshua Maier DO Date of Service: 10/12/24 XR/XR thoracic spine 3V*: S22.040D - Wedge compression fracture of fourth thoracic ... 3 views of thoracic spine COMPARISON: MR thoracic spine to 725 HISTORY: Fell. T4 compression fracture The thoracic kyphosis is adequate. The disc spaces are maintained. Thoracic endplate spurs are present. Similar T4 anterior wedge compression fracture. No new fractures. Diffuse osteopenia No paraspinal abnormality seen. XR/XR thoracic spine 3V* IMPRESSION: Stable T4 anterior wedge compression fracture. Impression dictated by: Trey Negrete M.D.10/12/2024 4:21 PM Dictation Location: [employer] [facility] Transcribed By: [facility] 10/12/24 162 Dictated By: Trey Negrete DO 10/12/24 161 Signed By: 10/12/24 162 [facility] XR thoracic spine 3V*on 09-20 XR thoracic spine 3V* [facility] [place] [address] [place] [address] XRay Report Signed Patient: Edilma Agudelo MR#: [id number] : 1965 Acct:[id number] Age/Sex: 59 / F ADM Date: 10/12/24 Loc: XD Room: Type: [facility] Attending Dr: Joshua Maier DO Copies to: Joshua Maier DO Ordering Provider: Joshua Maier DO Date of Service: 10/12/24 XR/XR thoracic spine 3V*: S22.040D - Wedge compression fracture of fourth thoracic ... 3 views of thoracic spine COMPARISON: MR thoracic spine to 725 HISTORY: Fell. T4 compression fracture The thoracic kyphosis is adequate. The disc spaces are maintained. Thoracic endplate spurs are present. Similar T4 anterior wedge compression fracture. No new fractures. Diffuse osteopenia No paraspinal abnormality seen. XR/XR thoracic spine 3V* IMPRESSION: Stable T4 anterior wedge compression fracture. Impression dictated by: Trey Negrete M.D.10/12/2024 4:21 PM Dictation Location: [facility] Transcribed By: [facility] 10/12/24 162 Dictated By: Trey Negrete DO 10/12/24 161 Signed By: 10/12/24 162 [facility] Pathology Request for Lab Co rpon 05-01-2024 Pathology Request for Lab [place] Normal [facility] Comment on above: Order Comment: PATHO LOGY GI SPECIMEN Result Comment: See report. Scanned copy available in EMR. PERFORMED BY: [facility] [address] [place] [address] PATHOLOGIST TRACTOR TRAILER OPERATOR TI ROLDAN M.D. Performed By: #### P ATH TO [facility] #### [facility] [address] INSULINon 11-19-2022 Insulin 18.1 uIU/mL Normal 2.6-24.9 [facility] Comment on above: Performed By: #### I NSULIN #### [facility] [address] [place] [address] [address] Jeny Helms CBC AUTO DIFFon 11-17-2022 BASO # 0.1 103/ul Normal 0.0-0.1 [facility] Comment on above: Performed By: #### C BC ####[facility] [address] [place] [address]Dr. Jeny Helms Basophils/100 WBC (Bld) 1.4 % Normal 0.2-2.0 [facility] Comment on above: Performed By: #### C BC ####[facility] [address] [place] [address]Dr. Jeny Helms EO # 0.2 103/ul Normal 0.0-0.7 [facility] Comment on above: Performed By: #### C BC ####[facility] [address] [place] [address]Dr. Jeny Helms Eosinophils/100 WBC (Bld) 3.8 % Normal 0.9-7.0 [facility] Comment on above: Performed By: #### C BC ####[facility] [address] [place] [address]Dr. Jeny Helms Erythrocyte distribution width (RBC) [Ratio] 13.3 % Normal 11.0-15.0 [facility] Comment on above: Performed By: #### C BC ####[facility] [address] [place] [address]Dr. Jeny Helms Hematocrit (Bld) [Volume fraction] 41.2 % Normal 36.0-48.0 [facility] Comment on above: Performed By: #### C BC ####[facility] [address] [place] [address]Dr. Jeny Helms Hemoglobin (Bld) [Mass/Vol] 13.5 g/dL Normal 12.0-16.0 [facility] Comment on above: Performed By: #### C BC ####[facility] [address] [place] [address]Dr. Jeny Helms IG # 0.01 10e3/ul Normal 0.00-0.03 [facility] Comment on above: Performed By: #### C BC ####[facility] [address] [place], [place] [address]Dr. Jeny Scooter IG % 0.2 % Normal 0.0-0.5 [facility] Comment on above: Performed By: #### C BC ####[facility] [address] [place], [place] [address]DrLilliam Jeny Scooter LYMPH # 1.3 103/ul Normal 1.2-3.8 [facility] Comment on above: Performed By: #### C BC ####[facility] [address] [place], [place] [address]DrLilliam Jeny Scooter Lymphocytes/100 WBC (Bld) 30.0 % Normal 20.5-60.0 [facility] Comment on above: Performed By: #### C BC ####[facility] [address] [place], [place] [address]Dr. Jeny Scooter MANUAL DIFF REQ NO Normal [facility] Comment on above: Performed By: #### C BC ####[facility] [address] [place], [place] [address]Dr. Jeny Scooter MCH (RBC) [Entitic mass] 31.4 pg Normal 26.7-34.0 [facility] Comment on above: Performed By: #### C BC ####[facility] [address] [place], [place] [address]Dr. Jeny Scooter MCHC (RBC) [Mass/Vol] 32.8 g/dL Normal 29.9-35.2 [facility] Comment on above: Performed By: #### C BC ####[facility] [address] [place] [address]DrLilliam Helms MCV (RBC) [Entitic vol] 95.8 fL Normal 81.0-99.0 [facility] Comment on above: Performed By: #### C BC ####[facility] [address] [place], [place] [address]DrLilliam Helms MONO # 0.5 103/ul Normal 0.3-0.8 [facility] Comment on above: Performed By: #### C BC ####[facility] [address] [place], [place] [address]DrLilliam Helms Monocytes/100 WBC (Bld) 10.6 % Normal 1.7-12.0 [facility] Comment on above: Performed By: #### C BC ####[facility] [address] [place], [place] [address]DrLilliam Helms NEUT # 2.4 103/ul Normal 1.4-6.5 [facility] Comment on above: Performed By: #### C BC ####[facility] [address] [place], [place] [address]DrLilliam Helms Neutrophils/100 WBC (Bld) 54.0 % Normal 43.0-75.0 [facility] Comment on above: Performed By: #### C BC ####[facility] [address] [place], [place] [address]DrLilliam Helms Platelet mean volume (Bld) [Entitic vol] 10.3 fL Normal 9.5-13.5 [facility] Comment on above: Performed By: #### C BC ####[facility] [address] [place], [place] [address]DrLilliam Helms PLT 258 103/ul Normal 150-450 [facility] Comment on above: Performed By: #### C BC ####[facility] [address] [place], [place] [address]DrLilliam Helms RBC 4.30 106/ul Normal 4.20-5.40 [facility] Comment on above: Performed By: #### C BC ####[facility] [address] [place] [address]Dr. Jeny Helms WBC 4.4 103/ul Normal 4.0-11.0 [facility] Comment on above: Performed By: #### C BC ####[facility] [address] [place] [address]Dr. Jeny Helms FREE THYROXINE INDEX T7on FTI 2.72 Normal 1.30-4.50 [facility] Comment on above: Performed By: #### L IPID, T7, TSH, CMP #### [facility] [address] [place] [address] Dr. Jeny Helms T3U 32.0 % Normal 30.0-39.0 [facility] Comment on above: Performed By: #### L IPID, T7, TSH, CMP #### [facility] [address] [place] [address] Dr. Jeny Helms T4 [Mass/Vol] 8.50 ug/dL Normal 4.80-13.90 [facility] Comment on above: Performed By: #### L IPID, T7, TSH, CMP #### [facility] [address] [place] [address] Dr. Jeny Helms GLYCOHEMOGLOBIN A1Con 2022 ADA RECOMMENDATION SEE BELOW Normal [facility] Comment on above: Result Comment: ADA RECOMMENDED LIMIT 4.0 - 6.0 ADA THERAPEUTIC TARGET < 7.0 ACTION SUGGESTED > 7.0 Performed By: #### A 1C #### [facility] [address] [place] [address] Dr. Jeny Helms Glucose [Mass/Vol] 100 mg/dL Normal [facility] Comment on above: Performed By: #### A 1C #### [facility] [address] [place] [address] Dr. Jeny Helms HbA1c (Bld) [Mass fraction] 5.1 % Normal 4.5-6.2 [facility] Comment on above: Performed By: #### A 1C #### [facility] [address] [place] [address] [address] Jeny Helms IRONon 11-17-2022 Iron [Mass/Vol] 96.0 ug/dL Normal 50.0-170.0 [facility] Comment on above: Performed By: #### I AUTUMN #### [facility] [address] [place] [address] [address] Jeny Helms LIPID PROFILEon 11-17-2022 CHOL-HDL RATIO NORM SEE BELOW Normal [facility] Comment on above: Result Comment: 3.3 - 4.4 LOW RISK 4.4 - 7.1 AVERAGE RISK 7.1 - 11.0 MODERATE RISK >11.0 HIGH RISK Performed By: #### L IPID, T7, TSH, CMP #### [facility] [address] [place] [address] Dr. Jeny Helms Cholesterol [Mass/Vol] 166 mg/dL Normal <=200 [facility] Comment on above: Performed By: #### L IPID, T7, TSH, CMP #### [facility] [address] [address] [address] Jeny Helms Cholesterol in HDL [Mass/Vol] 61 mg/dL Critically high 40-60 [facility] Comment on above: Performed By: #### L IPID, T7, TSH, CMP #### [facility] [address] [address] [address] Jeny Helms Cholesterol in LDL [Mass/Vol] 84.0 mg/dL Normal [facility] Comment on above: Performed By: #### L IPID, T7, TSH, CMP #### [facility] [address] [address] [address] Jeny Helms Cholesterol.total/Ch olesterol in HDL [Mass ratio] 2.7 {ratio} Normal [facility] Comment on above: Performed By: #### L IPID, T7, TSH, CMP #### [facility] [address] [address] [address] Jeny Helms HDL NORMAL > or = 60 mg/dl - LOW CARDIOVASCULAR RISK <40 mg/dl - HIGH CARDIOVASCULAR RISK Normal [facility] Comment on above: Performed By: #### L IPID, T7, TSH, CMP #### [facility] [address] [address] [address] Jeny Helms LDL CALC NORMAL SEE BELOW Normal [facility] Comment on above: Result Comment: <100 mg/dl OPTIMAL 100 - 129 mg/dl NEAR OR ABOVE OPTIMAL 130 - 159 mg/dl BORDERLINE HIGH 160 - 189 mg/dl HIGH >190 mg/dl VERY HIGH Performed By: #### L IPID, T7, TSH, CMP #### [facility] [address] [address] [address] Jeny Helms Triglyceride [Mass/Vol] 105 mg/dL Normal <=150 [facility] Comment on above: Performed By: #### L IPID, T7, TSH, CMP #### [facility] [address] [address] [address] Jeny Helms VLDL CALC 21.0 mg/dL Normal [facility] Comment on above: Performed By: #### L IPID, T7, TSH, CMP #### [facility] [address] [address] [address] Jeny Helms OCC BLD IMMUNO SCREENon 10-21 OCCULT BLOOD Negative Normal NEGATIVE [facility] Comment on above: Performed By: #### O BSCRN #### [facility] [address] [address] [address] Jeny Helms PROF 14(COMP METB)on 023 Albumin [Mass/Vol] 3.7 g/dL Normal 3.4-5.0 [facility] Comment on above: Performed By: #### L IPID, T7, TSH, CMP #### [facility] [address] [address] [address] Jeny Helms Albumin/Globulin [Mass ratio] 1.0 {ratio} Normal [facility] Comment on above: Performed By: #### L IPID, T7, TSH, CMP #### [facility] [address] [address] [address] Jeny Helms ALP [Catalytic activity/Vol] 119 U/L Critically high 46-116 [facility] Comment on above: Performed By: #### L IPID, T7, TSH, CMP #### [facility] [address] [address] [address] Jeny Helms ALT [Catalytic activity/Vol] 43 U/L Normal 14-59 [facility] Comment on above: Performed By: #### L IPID, T7, TSH, CMP #### [facility] [address] [place] [address] Dr. Jeny Helms Anion gap [Moles/Vol] 15.1 mmol/L Normal [facility] Comment on above: Performed By: #### L IPID, T7, TSH, CMP #### [facility] [address] [place] [address] Dr. Jeny Helms AST [Catalytic activity/Vol] 20 U/L Normal 15-37 [facility] Comment on above: Performed By: #### L IPID, T7, TSH, CMP #### [facility] [address] [place] [address] Dr. Jeny Helms Bilirubin [Mass/Vol] 0.5 mg/dL Normal 0.2-1.0 [facility] Comment on above: Performed By: #### L IPID, T7, TSH, CMP #### [facility] [address] [place] [address] Dr. Jeny Helms Calcium [Mass/Vol] 9.3 mg/dL Normal 8.5-10.1 [facility] Comment on above: Performed By: #### L IPID, T7, TSH, CMP #### [facility] [address] [place] [address] Dr. Jeny Helms Chloride [Moles/Vol] 105 mmol/L Normal 98-107 [facility] Comment on above: Performed By: #### L IPID, T7, TSH, CMP #### [facility] [address] [place] [address] Dr. Jeny Helms CO2 [Moles/Vol] 25.0 mmol/L Normal 21.0-32.0 [facility] Comment on above: Performed By: #### L IPID, T7, TSH, CMP #### [facility] [address] [address] [address] Jeny Helms Creatinine [Mass/Vol] 0.77 mg/dL Normal 0.55-1.02 [facility] Comment on above: Performed By: #### L IPID, T7, TSH, CMP #### [facility] [address] [address] [address] Jeny Helms EGFR-AF ARGENTINE >60 Normal >=60 [facility] Comment on above: Performed By: #### L IPID, T7, TSH, CMP #### [facility] [address] [place] [address] Dr. Jeny Helms EGFR-NON AF ARGENTINE >60 Normal >=60 [facility] Comment on above: Performed By: #### L IPID, T7, TSH, CMP #### [facility] [address] [place] [address] Dr. Jeny Helms Globulin (S) [Mass/Vol] 3.7 g/dL Normal [facility] Comment on above: Performed By: #### L IPID, T7, TSH, CMP #### [facility] [address] [place] [address] Dr. Jeny Helms Glucose [Mass/Vol] 103 mg/dL Normal 74-106 [facility] Comment on above: Performed By: #### L IPID, T7, TSH, CMP #### [facility] [address] [place] [address] Dr. Jeny Helms Potassium [Moles/Vol] 4.1 mmol/L Normal 3.5-5.1 [facility] Comment on above: Performed By: #### L IPID, T7, TSH, CMP #### [facility] [address] [place] [address] Dr. Jeny Helms Protein [Mass/Vol] 7.4 g/dL Normal 6.4-8.2 [facility] Comment on above: Performed By: #### L IPID, T7, TSH, CMP #### [facility] [address] [place] [address] Dr. Jeny Helms Sodium [Moles/Vol] 141 mmol/L Normal 136-145 [facility] Comment on above: Performed By: #### L IPID, T7, TSH, CMP #### [facility] [address] [address] [address] Jeny Helms Urea nitrogen [Mass/Vol] 21.0 mg/dL Critically high 7.0-18.0 [facility] Comment on above: Performed By: #### L IPID, T7, TSH, CMP #### [facility] [address] [address] [address] Jeny Helms Urea nitrogen/Creatinine [Mass ratio] 27.3 mg/mg Normal [facility] Comment on above: Performed By: #### L IPID, T7, TSH, CMP #### [facility] [address] [address] [address] Jeny Helms TSHon 11-17-2022 TSH 1.829 uIU/mL Normal 0.358-3.740 [facility] Comment on above: Performed By: #### L IPID, T7, TSH, CMP #### [facility] [address] LUNG CANCER SCREENINGon [...] by: OCTAVIANO MARIA Date: 2022-10-25 08:12 Normal [facility] MAMM SCREEN 3D ANGUS CADon 04-20-2022 MG MAMM SCREEN 3D ANGUS CAD Patient: EDILMA AGUDELO Exam Date: 04/20/2022 : 1965 Gender:F Ordering : TAMMIE VILLA [facility] Admission #: [id number] Family : DR ROSA CARRION Order #: [id number] CLICK HERE TO VIEW EXAM RADIOLOGY REPORT PROCEDURE: MAMMOGRAM SCREENING 3D BILATERAL CAD COMPARISON: MAMM SCREEN ANGUS W CAD, 03/24/2020. MAMM SCREEN 3D ANGUS CAD, 04/11/2021. INDICATIONS: [...] stomach cancer at age 60. LOCATION: [facility] BREAST COMPOSITION: Heterogeneously dense,which may obscure small [...] Dwyer MD on 04/20/2022 at 08:07 Normal [facility] FLUORO FOR SURGICAL PROCEDUR ESon 02-05-2019 [...] Andrea Medina MD 02/05/19 Final result Normal [facility] Surgical Specimenon 02-06-20 Surgical Specimen [facility] [address] [facility] [place], [place] [id number] FINAL SURGICAL PATHOLOGY REPORT Patient Name: EDILMA AGUDELO Accession No: [id number] Age Sex: 1965 [facility] Account No: [id number] Collected: 02/05/2019 Med Rec No: [id number] Received: 02/05/2019 Attend Phys: VICENTE BARAKAT Completed: [...] in toto in cassette A1. JEMIMA/LEILANI CPT: 65727 X1 LUCAS MCCARTY M.D. 02/06/2019 Electronically signed out by Page 1 of 1 [facility] Comment on above: Performed By: #### S UR #### [facility] [address] [place] [address] Basic Metabolic Panelon 01-19 Anion gap [Moles/Vol] 22 mmol/L Critically high 9-15 [facility] Comment on above: Performed By: #### B MP #### [facility] [address] [place] [address] Calcium [Mass/Vol] 9.6 mg/dL Normal 8.5-9.9 [facility] Comment on above: Performed By: #### B MP #### [facility] [address] [place] [address] Chloride [Moles/Vol] 101 mmol/L Normal 95-107 [facility] Comment on above: Performed By: #### B MP #### [facility] [address] [place] [address] CO2 [Moles/Vol] 18 mmol/L Low 20-31 [facility] Comment on above: Performed By: #### B MP #### [facility] [address] [place] [address] Creatinine [Mass/Vol] 0.59 mg/dL Normal 0.50-0.90 [facility] Comment on above: Performed By: #### B MP #### [facility] [address] [place] [address] GFR/1.73 sq M predicted among blacks MDRD (S/P/Bld) [Vol rate/Area] mL/min/{1.73_m2} Normal >60 [facility] Comment on above: Result Comment: >60 mL/min/1.73m2 EGFR, calc. for ages 18 and older using the MDRD formula (not corrected for weight), is valid for stable renal function. Performed By: #### B MP #### [facility] [address] [place] [address] GFR/1.73 sq M.predicted MDRD (S/P/Bld) [Vol rate/Area] mL/min/{1.73_m2} Normal >60 [facility] Comment on above: Result Comment: >60 mL/min/1.73m2 EGFR, calc. for ages 18 and older using the MDRD formula (not corrected for weight), is valid for stable renal function. Performed By: #### B MP #### [facility] [address] [place] [address] Glucose [Mass/Vol] 82 mg/dL Normal 70-99 [facility] Comment on above: Performed By: #### B MP #### [facility] [address] [place] [address] Potassium [Moles/Vol] 3.8 mmol/L Normal 3.4-4.9 [facility] Comment on above: Performed By: #### B MP #### [facility] [address] [place] [address] Sodium [Moles/Vol] 141 mmol/L Normal 135-144 [facility] Comment on above: Performed By: #### B MP #### [facility] [address] [place] [address] Urea nitrogen [Mass/Vol] 13 mg/dL Normal 6-20 [facility] Comment on above: Performed By: #### B MP #### [facility] [address] [place] [address] CBC With Platelet No Differe ntialon 01-29-2019 Erythrocyte distribution width (RBC) [Ratio] 13.8 % Normal 11.5-14.5 [facility] Comment on above: Performed By: #### C BCND #### [facility] [address] [place] [address] Hematocrit (Bld) [Volume fraction] 44.5 % Normal 37.0-47.0 [facility] Comment on above: Performed By: #### C BCND #### [facility] [address] [place] [address] Hemoglobin (Bld) [Mass/Vol] 15.3 g/dL Normal 12.0-16.0 [facility] Comment on above: Performed By: #### C BCND #### [facility] [address] [place] [address] MCH (RBC) [Entitic mass] 33.6 pg Critically high 27.0-31.3 [facility] Comment on above: Performed By: #### C BCND #### [facility] [address] [place] [address] MCHC (RBC) [Mass/Vol] 34.4 % Normal 33.0-37.0 [facility] Comment on above: Performed By: #### C BCND #### [facility] [address] [place] [address] MCV (RBC) [Entitic vol] 97.6 fL Normal 82.0-100.0 [facility] Comment on above: Performed By: #### C BCND #### [facility] [address] [place] [address] Platelets (Bld) [#/Vol] 200 10*3/uL Normal 130-400 [facility] Comment on above: Performed By: #### C BCND #### [facility] [address] [place] [address] RBC (Bld) [#/Vol] 4.56 10*6/uL Normal 4.20-5.40 [facility] Comment on above: Performed By: #### C BCND #### [facility] [address] [place] [address] WBC (Bld) [#/Vol] 6.6 10*3/uL Normal 4.8-10.8 [facility] Comment on above: Performed By: #### C BCND #### [facility] [address] [place] [address] Prothrombin Timeon 9 INR Coag (PPP) [Relative time] 0.9 {INR} Normal [facility] Comment on above: Result Comment: Warf erin Therapy INR Therapeutic: 2.0-3.0 With Mechanical Valve: >2.5 Low-intensity Therapeutic Range: 1.5-2.0 Mod-intensity Therapeutic Range: 2.0-3.0 High-intensity Therapeutic Range: 2.5-3.5 HIgh-intensity Therapeutic Range: 3.0-4.0 Common Critical/Alarm Value: 5.0 Common Upper Limit Reported: 10.0 Effective 01/29/2019: Please note reference ranges have changed. Performed By: #### P T #### [facility] [address] [place] [address] PT Coag (PPP) [Time] 12.3 s Normal 12.3-14.9 [facility] Comment on above: Result Comment: Effe ctive 01/29/19 Please note reference ranges have changed. Performed By: #### P T #### [facility] [address] [place] [id number] Type and Screen Capture 3 sc rn cellon 01-29-2019 Type and Screen Capture 3 scrn cell PATIENT: MAGNUS Fernando LOC: [facility] BILL# : [id number] : 1965 SEX: F ORDERED BY: COLLEEN Villanueva ORDERED : 01/29/2019 13:45 COLLECTED: 01/29/2019 14:58 ORDER : [id number] RECEIVED : 01/29/2019 14:58 TEST NAME RESULT UNITS RANGES ABN FL ST ABORH Capture B POS F Antibody 3 Cell Scrn Captu NEG F Normal [facility] Comment on above: Performed By: #### T S3C #### [facility] [address] [place] [id number] Vital Signs Date Time Vital Sign Value Performing Clinician Hardeep ram 12-09-2024 09:01-0400 Body weight 91.7 kg Tammie Villa PODIATRIC PHYSICIAN-C Work Phone: [facility] 12-09-2024 09:01-0400 Diastolic blood pressure 81 mm[Hg] Tammie Villa PODIATRIC PHYSICIAN-C Work Phone: [facility] 12-09-2024 09:01-0400 Systolic blood pressure 119 mm[Hg] Tammie Villa PODIATRIC PHYSICIAN-C Work Phone: [facility] 10-28-2024 10:45-0400 Body height 160.02 cm Tammie Villa PODIATRIC PHYSICIAN-C Work Phone: [facility] 10-28-2024 10:45-0400 Body mass index (BMI) [Ratio] 35.1 kg/m2 Tammie Daisy PODIATRIC PHYSICIAN-C Work Phone: [facility] 10-28-2024 10:45-0400 Body weight 90 kg Tammie Daisy PODIATRIC PHYSICIAN-C Work Phone: [facility] 10-12-2024 08:07-0400 Body height 160.[address] [facility] 10-12-2024 08:07-0400 Body mass index (BMI) [Ratio] 34.7 kg/m2 [facility] 10-12-2024 08:07-0400 Body weight [address] [facility] 09-14-2024 09:14-0500 Diastolic blood pressure 70 mm[Hg] [facility] 09-14-2024 09:14-0500 Heart rate 88 /min [facility] 09-14-2024 09:14-0500 SaO2% (BldA) [Mass fraction] 97 % [facility] 09-14-2024 09:14-0500 Systolic blood pressure 112 mm[Hg] [facility] 05-01-2024 11:35-0400 Diastolic blood pressure 92 mm[Hg] PODIATRIC PHYSICIAN-C Tammie Daisy Work Phone: [facility] 05-01-2024 11:35-0400 Heart rate 76 /min PODIATRIC PHYSICIAN-C Tammie Daisy Work Phone: [facility] 05-01-2024 11:35-0400 Respiratory rate 16 /min PODIATRIC PHYSICIAN-C Tammie Daisy Work Phone: [facility] 05-01-2024 11:35-0400 SaO2% (BldA) [Mass fraction] 98 % PODIATRIC PHYSICIAN-C Tammie Daisy Work Phone: [facility] 05-01-2024 11:35-0400 Systolic blood pressure 138 mm[Hg] PODIATRIC PHYSICIAN-C Tammie Daisy Work Phone: [facility] 05-01-2024 09:07-0400 Body height 160.02 cm PODIATRIC PHYSICIAN-C Tammie Villa Work Phone: [facility] 05-01-2024 09:07-0400 Body temperature 98.1 [degF] PODIATRIC PHYSICIAN-C Tammie Villa Work Phone: [facility] 05-01-2024 09:07-0400 Body weight 88.45 kg PODIATRIC PHYSICIAN-C Tammie Villa Work Phone: [facility] 04-17-2024 09:40-0400 Body height 160.[address] [facility] 04-17-2024 09:40-0400 Body mass index (BMI) [Ratio] 34.5 kg/m2 [facility] 04-17-2024 09:40-0400 Body weight 88.[address] [facility] Encounters Encounter Date Encounter Type Care Provider Facility Start: 01-18-2025 End: 01-18-2025 ambulatory [facility] Start: 12-09-2024 End: 12-09-2024 Patient encounter procedure Tammie Villa PODIATRIC PHYSICIAN-C Work Phone: [facility] Work Phone: Start: 12-09-2024 End: 12-09-2024 Patient encounter procedure Tammie Villa PODIATRIC PHYSICIAN-C Work Phone: [facility] Work Phone: Start: 12-09-2024 End: 12-09-2024 ambulatory Tammie Villa Facility:[facility] Start: 10-28-2024 End: 10-28-2024 Patient encounter procedure Tammie Villa PODIATRIC PHYSICIAN-C Work Phone: [facility] Work Phone: Start: 10-28-2024 End: 10-28-2024 ambulatory Tammie Villa PODIATRIC PHYSICIAN-C Work Phone: [facility] Work Phone: Start: 10-12-2024 End: 10-12-2024 ambulatory Tammie Villa PODIATRIC PHYSICIAN-C Work Phone: [facility] Work Phone: Start: 10-12-2024 End: 10-12-2024 Patient encounter procedure [facility] Work Phone: Start: 10-07-2024 End: 10-07-2024 ambulatory ROSA Hay VISCI Not Available Start: 09-14-2024 End: 09-14-2024 ambulatory [facility] [place] Work Phone: Start: 09-14-2024 End: 09-14-2024 Patient encounter procedure [facility] Work Phone: Start: 05-01-2024 Non-patient / Non-visit PODIATRIC PHYSICIAN-C Tammie Villa Work Phone: [facility] Gastroenterology Work Phone: Start: 05-01-2024 End: 05-01-2024 Admission to same day surgery center PODIATRIC PHYSICIAN-C Tammie Villa Work Phone: [facility] Work Phone: Start: 05-01-2024 End: 05-01-2024 ambulatory PODIATRIC PHYSICIAN-C Tammie Villa Work Phone: [facility] Work Phone: Start: 04-17-2024 End: 04-17-2024 ambulatory [facility] [place] Work Phone: Start: 04-17-2024 End: 04-17-2024 Patient encounter procedure [facility] Gastroenter[facility] Work Phone: Start: 11-22-2022 Encounter for genera l adult medical examination without abnormal findings TAMMIE VILLA [facility] Start: 11-17-2022 End: 11-18-2022 ambulatory TAMMIE VILLA Facility:[facility] Start: 11-17-2022 End: 11-18-2022 Encounter for general adult medical examination without abnormal findings TAMMIE VILLA Facility:[facility] Start: 10-24-2022 End: 10-25-2022 ambulatory TAMMIE VILLA Facility:[facility] Start: 04-20-2022 End: 04-21-2022 ambulatory TAMMIE VILLA Facility:[facility] Start: 02-05-2019 End: 02-05-2019 Patient encounter procedure VICENTE BARAKAT [facility] Start: 01-29-2019 End: 02-03-2019 Patient encounter procedure VICENTE BARAKAT [facility] Procedures Date Procedure Procedure Detail Performing Clinician Start: 12-09-2024 X-ray of thoracic spine, three views Tammie Villa PODIATRIC PHYSICIAN-C Work Phone: Start: 10-28-2024 X-ray of thoracic spine, three views Tammie Villa PODIATRIC PHYSICIAN-C Work Phone: Start: 10-12-2024 X-ray of thoracic spine, three views Tammie Villa PODIATRIC PHYSICIAN-C Work Phone: Start: 05-01-2024 Esophagogastroduodenoscopy PODIATRIC PHYSICIAN-C Tammie ch Work Phone: Start: 02-05-2019 INCENTIVE [...] Treatment Date Care Activity Detail Author Start: 09-14-2024 Patient referral [facility] Work Phone: Start: 05-01-2024 [facility] Patient Education Hemorrhoids (D C) Diverticulosis (DC) Hiatal Hernia (DC) Colon Polypectomy (DC) Know your [facility] Work Phone: Patient referral [facility] Work Phone: XR Thoracic spine 3 Views [facility] Immunizations Immunization Date Immunization Notes Care Provider Pavan johnson 05-22-2020 influenza, high dose seasonal, preservative-free [facility] 05-18-2020 influenza, injectabl e, quadrivalent, preservative free [facility] 05-16-2020 tetanus toxoid, redu maximiliano diphtheria toxoid, and acellular pertussis vaccine, adsorbed [facility] 05-20-2019 influenza virus vacc ine, unspecified formulation [facility] 04-17-2019 influenza, injectabl e, quadrivalent, contains preservative [facility] Payers Date Payer Category Payer Self-pay [id number] 1965 Unknown [id number] 2.16.8 [id number] 1965 Unknown [id number] 2.16.8 [id number] 1965 Unknown [id number] 2.16.84 [id number] 1965 Unknown [id number] 2.16.84 [id number] 1965 Unknown [id number] 2.16.84 [id number] 1965 Unknown [id number] 2.16.84 [id number] 1959 Unknown [id number] 1959 Unknown [id number] Unknown [id number] 2.16.8 [id number] Unknown [id number] 2.16.8 [id number] Unknown [id number] 2.16.8 [id number] Unknown [id number] 2.16.8 [id number] Social History Date Type Detail Facility Start: 04-17-2024 Tobacco smoking stat [facility] Never smoked tobacco (finding) [facility] Start: 1965 Sex Assigned At Female F [facility] Start: 05-01-2024 End: 09-18-2024 Tobacco smoking status [facility] Ex-smoker (finding) [facility] Start: 09-14-2024 End: 12-10-2024 Sex Female (finding) [facility] Goals Date Patient Goal Desired Activity /State Clinical Notes 05-01-2024 to 01-18-2025 Note Date & Type Note Facility 01-18-2025 Note [facility] Subjective Edilma Agudelo is a 59 y.o. year old female patient being seen to establish care. Patient states she is being seen for mild aortic valve regurgitations and hypertension. Patient states she has occasional palpitations. Patient Active Problem List Diagnosis Primary hypertension Mixed hyperlipidemia Nonrheumatic aortic valve insufficiency Family History Problem Relation Name Age of Onset Hypertension Mother Cancer Father Social History Tobacco Use Smoking status: Former Types: Cigarettes Smokeless tobacco: Never Substance Use Topics Alcohol use: Yes Alcohol/week: 6.0 standard drinks of alcohol Types: 6 Cans of beer per week Comment: 6 beers per week Drug use: Yes Types: Marijuana Comment: occasional edible HPI Edilma is seen as a new patient referred from her PCP. She is a 59-year-old woman with history of hypertension and hyperlipidemia both on treatment. She is an ex-smoker. She recently underwent an echocardiogram that showed evidence of mild aortic valve regurgitation. Her ventricular function is at the lower limits of normal with an EF of 50%. Right-sided pressures were normal. She denies chest pain. She has shortness of breath on exertion NYHA class II symptoms. This is especially when she walks up the stairs. She however tries to continue her activity and not stop. She also complains of palpitations that are short-lived happening about 5-6 times a year, last time was 1 month ago. She does not have lower extremity edema. She also has been gaining weight and is asking about information regarding healthy diet. Review of Systems Cardiovascular: Positive for dyspnea on exertion and palpitations. Respiratory: Positive for shortness of breath. Objective Visit Vitals BP 133/84 (BP Location: Right arm, Patient Position: Sitting) Pulse 74 Ht 1.6 m (5' 3 ) Wt 91.2 kg (201 lb) SpO2 97% BMI 35.61 kg/m??? Smoking Status Former BSA 2.01 m??? Physical Exam Constitutional: Appearance: She is well-developed. She is obese. She is not ill-appearing. HENT: Head: Normocephalic and atraumatic. Nose: Nose normal. Eyes: General: No scleral icterus. Pupils: Pupils are equal, round, and reactive to light. Neck: Thyroid: No thyromegaly. Vascular: No JVD. Cardiovascular: Rate and Rhythm: Normal rate and regular rhythm. Pulses: Radial pulses are 2+ on the right side and 2+ on the left side. Heart sounds: Murmur heard. Systolic (RUSB) murmur is present with a grade of 2/6. No friction rub. No gallop. Pulmonary: Effort: Pulmonary effort is normal. No respiratory distress. Breath sounds: Normal breath sounds. No wheezing or rales. Chest: Chest wall: No tenderness. Abdominal: General: Bowel sounds are normal. There is no distension. Palpations: Abdomen is soft. Tenderness: There is no abdominal tenderness. Musculoskeletal: General: No swelling. Cervical back: Neck supple. Skin: General: Skin is warm and dry. Neurological: General: No focal deficit present. Mental Status: She is alert and oriented to person, place, and time. Psychiatric: Mood and Affect: Mood normal. Behavior: Behavior is cooperative. Judgment: Judgment normal. Allergies Allergies Allergen Reactions Cat Dander Unknown Other Reaction(s): Unknown Other Unknown Other Reaction(s): Unknown Tramadol Hives, Itching and Unknown Itching & hives Other Reaction(s): hives, nausea Itching & hives Medications Current Outpatient Medications: alendronate (Fosamax) 70 mg tablet, Take 70 mg by mouth once a week., Disp: , Rfl: aspirin 81 mg EC tablet, Take 81 mg by mouth in the morning., Disp: , Rfl: atorvastatin (Lipitor) 40 mg tablet, Take 40 mg by mouth in the morning., Disp: , Rfl: calcium carbonate 600 mg calcium (1,500 mg) tablet, Take 600 mg by mouth in the morning., Disp: , Rfl: irbesartan (Avapro) 150 mg tablet, Take 150 mg by mouth in the morning., Disp: , Rfl: magnesium aspart,citrate,oxide (Triple Magnesium Complex) 400 mg magnesium capsule, Take 400 mg by mouth in the morning., Disp: , Rfl: multivitamin tablet, Take 1 tablet by mouth in the morning., Disp: , Rfl: omeprazole (PriLOSEC) [address] capsule, Take 40 mg by mouth before breakfast., Disp: , Rfl: amLODIPine (Norvasc) 5 mg tablet, Take 1 tablet (5 mg) by mouth in the morning., Disp: 90 tablet, Rfl: 3 Recent Labs Blood testing 02/21/2024: Hemoglobin 13.1, platelets 250, potassium 4.2, BUN 25, creatinine 0.84, EGFR more than 60, hemoglobin A1c 4.9, LFTs normal, triglycerides 72, cholesterol 161, LDL 84, HDL 63, TSH 1.445. Imaging and other tests ECG 01/18/2025: Normal sinus rhythm, anterior infarct, age undetermined. Echocardiogram 12/23/2024: CONCLUSION: 1. Normal left ventricular size with low normal systolic function. LVEF is estimated at 50%. 2. Normal right ventricular size and systolic function. 3. Normal diast (more content not included)... [facility] 10-12-2024 Evaluation note Diagnosis Onset Date Resolution Compression fracture of T4 vertebra with routine healing acute October 12, 2024 8:08am Compression fracture of T4 vertebra with routine healing acute October 28, 2024 10:24am Compression fracture of T4 vertebra with routine healing acute December 09, 2024 8 :56am [facility] Work Phone: 1(702) 347-835302-24-2025 Evaluation note* Diagnosis Onset Date Resolution Status Admit Date Compression fracture of T4 vertebra with routine healing acute Fe bruary 2024 7:57am Mid back pain acute September 142024 7:57am Other chronic pain acute Februa ry 2024 7:57am Compression fracture of T4 vertebra with routine healing acute [facility] 2024 8:08am [facility] Work Phone: 1(333) 780-657902-24-2025 Evaluation note* Diagnosis Onset Date Resolution Status Admit Date Compression fracture of T4 vertebra with routine healing acute Fe bruary 2024 7:57am Mid back pain acute September 142024 7:57am Other chronic pain acute Februa ry 2024 7:57am Compression fracture of T4 vertebra with routine healing acute Ma [facility] 2024 8:08am Compression fracture of T4 vertebra with routine healing acute Ap ril 2024 10:24am [facility] Work Phone: 1(397) 636-683910-11-2024 History and physical note Author Debo Padilla [facility] May 01, 2024 10:28am Note Date/Time May 01, 2024 9 :59am [facility] [address] [place] [address] Gastroenterology H&P Signed Patient: Edilma Agudelo MR#: [id number] : 1965 Acct:[id number] Age/Sex: 58 / F Adm Date: 4 Loc: Room: Type: [facility] Attending Dr: Debo Padilla DO Copies to: DO Tammie Ocampo CNP~ Date of Service: 05/01/2024 HISTORY & [...] reviewed in the EMR Documented By: Debo Pdailla DO 05/01/24 0958 Signed By: <Electronically signed by Debo Padilla DO> 05/01/24 1028 [facility] Work Phone: 1(195) 254-622210-11-2024 [facility] * Diagnosis Onset Date Resolution Status Dyspepsia acute Dysphagia acute Encounter for screening colonoscopy acute Family history of colon cancer acute [facility] Work Phone: Evaluation note* Diagnosis Onset Date Resolution Status Dysphagia acute Encounter for screening colonoscopy acute GERD (gastroesophageal reflux disease) acute [facility] Work Phone: Evaluation note* Diagnosis Onset Date Resolution Status Admit Date Compression fracture of T4 vertebra with routine healing acute Fe bruary 2024 7:57am Mid back pain acute September 142024 7:57am Other chronic pain acute Februa ry 2024 7:57am [facility] Work Phone: Hospital Discharge instructions Additional Instructions DISCHARGE INSTRUCTIONS [...] -Follow up with PCP. - Office number [phone]. [facility] Work Phone: Summary Purpose Family History No [...] Advance Directives No May 12, 2021 7:36am Advance Directive Response Recorded Date/ Time Advance Directives No May 12, 2021 6:36am Advance Directive Response Recorded Date/ Time Advance Directives No August 4:37pm Chief Complaint and Reason for Visit Chief Complaint Refer mary ellen Valentine nsult GERD Reason for Visit Dyspepsia Dysphagia Encounter for screening colonoscopy Family history of colon cancer Chief Complaint Refer mary ellen Valentine nsult GERD Screening, fm hx of colon cancer, GERD Screening, fm hx of colon cancer, GERD Reason for Visit Dysphagia Encounter for screening colonoscopy GERD (gastroesophageal reflux disease) Chief Complaint Admit Date REFF BY SELVON JULIANNA September 14 7:57am Reason for Visit Admit Date Compression fracture of T4 vertebra with routine healing September 14, 2024 7:57am Mid back pain September 14, 2024 7:57am Other chronic pain September 14, 2024 7:57am Chief Complaint Admit Date REFF BY SELVON JULIANNA September 14 7:57am Wedge compression fracture of fourth tho racic October 12, 2024 8:08am Reason for Visit Admit Date Compression fracture of T4 vertebra with routine healing September 14, 2024 7:57am Mid back pain September 14, 2024 7:57am Other chronic pain September 14, 2024 7:57am Compression fracture of T4 vertebra with routine healing October 12, 2024 8:08am Chief Complaint Admit Date REFF BY SELVON JULIANNA September 14 7:57am Wedge compression fracture of fourth tho racic October 12, 2024 8:08am S22.040D M54.9 October 12, 2024 8:4 0am Chief Complaint Admit Date REFF BY SELVON JULIANNA September 14 7:57am Wedge compression fracture of fourth tho racic October 12, 2024 8:08am S22.040D M54.9 October 12, 2024 8:4 0am S22.040D - Wedge compression fracture of fourth th October 28, 2024 9:33am f/u fracture tspine w/x-ray October 28 025 10:24am Reason for Visit Admit Date Compression fracture of T4 vertebra with routine healing September 14, 2024 7:57am Mid back pain September 14, 2024 7:57am Other chronic pain September 14, 2024 7:57am Compression fracture of T4 vertebra with routine healing October 12, 2024 8:08am Compression fracture of T4 vertebra with routine healing October 28, 2024 10:24am Chief Complaint Admit Date Wedge compression fracture of fourth tho racic October 12, 2024 8:08am S22.040D M54.9 October 12, 2024 8:4 0am S22.040D - Wedge compression fracture of fourth th October 28, 2024 9:33am f/u fracture tspine w/x-ray October 28 10:24am S22.040D December 09, 2024 7:28a m 6 weeks f/u December 09, 2024 8:56a m Reason for Visit Admit Date Compression fracture of T4 vertebra with routine healing October 12, 2024 8:08am Compression fracture of T4 vertebra with routine healing October 28, 2024 10:24am Compression fracture of T4 vertebra with routine healing December 09, 2024 8:56am Additional Source Comments INFORMATION SOURCE (unrecogn ized section and content) DATE CREATED AUTHOR 02/06/2019 [facility] DATE CREATED AUTHOR AUTHOR'S ORGANIZ ATION 11/23/2022 [facility] pital DATE CREATED AUTHOR AUTHOR'S ORGANIZ ATION 10/09/2024 [facility] dical Specialists EPIC DATE CREATED AUTHOR AUTHOR'S ORGANIZ ATION 12/15/2024 [facility] y[facility] Group DATE CREATED AUTHOR AUTHOR'S ORGANIZ ATION 01/24/2025 [facility] Teams (unrecognized sec tion and content) Team Status: Active Member Role Status Dates PHYSICIAN NO FAMILY Primary Care Provider Active Team Status: Inactive Member Role Status Dates PHYSICIAN NO FAMILY Primary Care Provider Active Start: April 17, 2024 End: April 17, 2024 Debo Padilla DO Attending Provider Active St art: April 17, 2024 End: April 17, 2024 Tammie Kate Daisy , PODIATRIC PHYSICIAN-C Referring Provider Active Start: April 17, 2024 End: April 17, 2024 Team Status: Active Member Role Status Dates Tammie Villa PODIATRIC PHYSICIAN-C Primary Care Provider Active Team Status: Inactive Member Role Status Dates Debo Padilla DO Attending Provider Active St art: May 01, 2024 End: May 01, 2024 Tammie Villa PODIATRIC PHYSICIAN-C Primary Care Provider Active Start: May 01, 2024 End: May 01, 2024 Team Status: Active Member Role Status Dates Debo Padilla DO Attending Provider, Other Provider Active Start: May 01, 2024 Tammie Villa PODIATRIC PHYSICIAN-C Primary Care Provider Active Start: May 01, 2024 Team Status: Inactive Member Role Status Dates Tammie Villa PODIATRIC PHYSICIAN-C Primary Care Provider Active Start: September 14, 2024 End: September 14, 2024 David Joseph MD Attending Provider Active Sta rt: September 14, 2024 End: September 14, 2024 Mil Childress MD Referring Provider Active Start: September 14, 2024 End: September 14, 2024 Team Status: Inactive Member Role Status Dates Tammie Villa PODIATRIC PHYSICIAN-C Primary Care Provider Active Start: October 12, 2024 End: October 12, 2024 Joshua Maier DO Attending Provider Active S tart: October 12, 2024 End: October 12, 2024 Team Status: Active Member Role Status Dates Tammie Villa PODIATRIC PHYSICIAN-C Primary Care Provider Active Start: October 28, 2024 Joshua Maier DO Attending Provider Active S tart: October 28, 2024 Team Status: Inactive Member Role Status Dates Tammie Villa PODIATRIC PHYSICIAN-C Primary Care Provider Active Start: October 28, 2024 End: October 28, 2024 Joshua Maier DO Attending Provider Active S tart: October 28, 2024 End: October 28, 2024 Team Status: Inactive Member Role Status Dates Tammie Villa , PODIATRIC PHYSICIAN-C Primary Care Provider Active Start: December 09, 2024 End: December 09, 2024 Joshua Maier DO Attending Provider Active S tart: December 09, 2024 End: December 09, 2024 Goals (unrecognized section and content) Goals may be documented in a n alternate sectionGoals may be documented in an alternate sectionGoals may be documented in an alternate sectionGoals may be documented in an alternate sectionGoals may be documented in an alternate sectionGoals may be documented in an alternate sectionGoals may be documented in an alternate section FOR RECORDS PERTAINING TO PATIENTS [...] BE BASED ON THE PRIMARY CLINICAL RECORDS. [facility]. provides no warranty or guarantee of the accuracy or completeness of information in this document.
--- NOTE | 2025-02-12 10:02 | PC.NURSE ---
Nursing Note Cardiac Stress Test Reviewed: Medication, allergies and patient history reviewed. Stress Test: [x ] Patient tolerated stress test well. [ ] Patient unable to tolerate walking on treadmill. Switched to Lexiscan stress test. [x ] No chest pain noted per patient [ ] Chest pain that resolved prior to leaving stress lab. [ ] No dyspnea noted. [x ] Dyspnea that resolved prior to leaving stress lab. [x ] Patient left stress lab asymptomatic and hemodynamically stable. [ ] Patient taken to the Emergency Room due to non-resolving symptoms following stress test. [x ] Patient achieved target heart rate. [ ] Patient unable to achieve target heart rate. [ ] Aminophylline administered as reversal agent to Lexiscan (Regadenoson). [ ] Nitro administered. Nursing Comments:Pt had Cardiolite TM test done and tolerated well. No CP but had SOB which she states is normal for her with activity that resolved within 3 minutes of rest. Pt ambulated to cafeteria for breakfast prior to second set of images.
--- NOTE | 2025-02-15 17:25 | PM.STRESS ---
Stress Test Stress Test Requesting physician: ELIZABETH GALLARDO Procedure: This was a Treadmill stress test with myocardial perfusion imaging performed at the [facility] on 02/12/2025. Intravenous line was secured. The patient was attached to electrocardiographic monitoring. Baseline vital signs and ECG were obtained. The patient exercised on the treadmill according to the Chema protocol. Cardiolite was administered at peak exercise. The patient then went on to obtain myocardial perfusion imaging. Exercise time was 5 minutes and 21 seconds. The patient reached stage II of the Chema protocol and achieved 7 METS. The test was stopped due to target heart rate achieved. Resting heart rate was 74 bpm and peak heart rate was 144 bpm. Resting blood pressure was 138/80 and peak blood pressure was 156/84. General Information: Reason for Stress Test: Shortness of breath, abnormal ECG. Cardiac History and Risk Factors: Hypertension. Resting 12 - Lead Electrocardiogram: Sinus rhythm with first-degree AV block, low voltage ECG, cannot rule out anterior myocardial infarction age undetermined. Stress Test: Protocol: Treadmill stress test, Chema protocol. Exercise Capacity: Average. Blood Pressure Response: Resting hypertension, appropriate blood pressure response to exercise. Rhythm: Sinus with occasional PVCs. ST - Response: Ischemic ST changes seen. Patient Response: Shortness of breath. Interpretation: 1. No evidence of ischemic ECG changes seen following treadmill exercise stress. 2. Gaspar treadmill score of +1.5 is associated with intermediate risk for long-term cardiac events. 3. Myocardial perfusion images will be reported separately.
== END 2025-02-12 07:49 | disposition home or self-care (01) ==
LOC: NM 07:48
PROVIDERS: PCP Nurse Practitioner Family; Visit Provider Internal Medicine Interventional Cardiology
DX: R06.02 Shortness of breath (principal); R94.31 Abnormal electrocardiogram [ECG] [EKG]
CPT/HCPCS: 78452; 93017; A9500

== ENCOUNTER 2025-03-06 07:00 | Outpatient (OUT) | payer OTHER, SELFPAY ==
--- OUTSIDE RECORDS SUMMARY | 2025-02-15 11:41 | XMS_ITS ---
Author Organization The [facility] in [place] Address [address] [place] [address] Care Team Providers Care Bronze Plater Name Role Phone Tammie Butterfield Primary Care Provider Kyle Roche Unavailable [phone] REASON FOR VISIT rf omeprazole Medications Medication SIG (Take, Route, Fr equency, Duration) Notes Start Date End Date Status Omeprazole 40 MG TAKE 1 CAPSULE BY MO UTH EVERY DAY Oral for 90 days Active Encounters Encounter Location Date Provider Diagnosis [facility] ([place], [place]) [address] [place] [address] 02/15/2025 Kyle Roche Plan Of Treatment Medication Medication Name Sig Start Date Stop Date Notes Omeprazole 40 MG TAKE 1 CAPSULE BY MO UTH EVERY DAY Oral for 90 days Progress Notes * Hank OBRIENOB:1965 ([age] yo F)Acc No.[id number]:02/15/2025 Patient: Delbert ANDREWEdlima Khan :1965 A ge:59 Y S ex:Female Address:[facility] [place], [address] * Refills Refill Omeprazole Capsule Delayed Release, 40 MG, Oral, 90 Each, TAKE 1 CAPSULE BY MOUTH EVERY DAY, 90 days, Refills=3 * true * Date: Generated for Edeli ng/Faivyg/eTransmitting on: 0 03/06/2025 07:03 AM EDT
--- OUTSIDE RECORDS SUMMARY | 2025-02-16 05:17 | XMS_ITS ---
Author Organization The [facility] in [place] Address [address] [place] [address] Care Team Providers Care Amusement Centre Manager Name Role Phone Tammie Butterfield Primary Care Provider REASON FOR VISIT stress test results Encounters Encounter Location Date Provider Diagnosis [facility] [address] [facility] [place] [address] 02/16/2025 Tammie Butterfield Plan Of Treatment No Information Progress Notes * Hank OBRIENOB:1965 ([age] yo F)Acc No.[id number]:02/16/2025 Patient: Edilma JO :1965 A ge:59 Y S ex:Female Address:[facility] [place], [address] * true * Date: Generated for Ramirez villar/Wen/eTransmitting on: 0 03/06/2025 07:03 AM EDT
--- OUTSIDE RECORDS SUMMARY | 2025-02-22 10:42 | XMS_ITS ---
Author Organization The [facility] in [place] Address [address] [place] [address] Care Team Providers Care Yard Spotter Name Role Phone Tammie Butterfield Primary Care Provider REASON FOR VISIT due for wellness labs Encounters Encounter Location Date Provider Diagnosis [facility] [address] [facility] [place] [address] 02/22/2025 Tammie Butterfield Wellness examination Z00.00 Assessments Encounter Date Diagnosis (ICD Code) Assessment Notes Treatment Notes Treatment Clinical Notes Section Notes 02/22/2025 Wellness examination (ICD-10 - Z00.00) Plan Of Treatment Pending Test Test Name Order Date HEMOGLOBIN A1C (GLYCO) 02/22/2025 IRON, TOTAL 02/22/2025 LIPID PANEL (CHOL/TRIG/HDL/LDL) 02/23/20 25 VITAMIN D, 25 LEVEL (TOTAL) 02/22/2025 Insulin Level 02/22/2025 THYROID PANEL (T4/TSH/FREE T3) CMP (COMP MET RIVERA) w/eGFR CKD-EPI 2024 CBC WITH DIFF 02/22/2025 Progress Notes * Hank OBRIENOB:1965 ([age] yo F)Acc No.[id number]:02/22/2025 Patient: Edilma JO :1965 A ge:59 Y S ex:Female Address:[facility] [place], [address] Subjective: * Chief Complaints: * D ue for wellness labs * Medical History: * Surgical History: * Hospitalization/Major Diagno stic Procedure: * Medications: Objective: * Vitals: * Physical Examination: Assessment: * Assessment: 1. [facility] examination - Z00.00 (Primary) Plan: * Treatment: * Procedure Codes: * true * Date: Generated for Ramirez villar/Wen/Matt on: 0 03/06/2025 07:03 AM EDT
--- OUTSIDE RECORDS SUMMARY | 2025-03-06 07:03 | XMS_ITS | Encounter Summary ---
Author Organization [facility] Address [address] [place] [address] Care Team Providers Care Hosiery Mender Name Role Phone Unallocated, Noms Provider Primary Care Provi blu Tammie Butterfield MD Unavailable [phone] Logan Rankin DO Unavailable [phone] Encounter Details Date Type Department Care Team (Late st Contact Info) Description 08/12/2024 Orders Only [facility] [address] [place] [id number] Tammie Butterfield MD [address] [place], [place] [phone] Social History Tobacco Use Types Packs/Day Years [...] Description 10/13/2025 11:45 AM EDT Office Visit [facility]U [facility] [address] [place] [address] Logan Rankin DO [address] [place] [address] documented as of this encounter [...] on filedocumented in this encounter Care Teams Hosiery Mender Relationship Specialty Start Date End Date Unallocated, Nompuma Schrader MD [address] [place] [address] PCP - General Family Medicine 09/20/23 Tammie Butterfield MD [address] [place] [address] Referring Physician Family Medicine 09/20/23 Logan Rankin DO [address] [place] [address] Referring Physician Obstetrics and Gynecology 09/20/23 documented as of this encounter
--- OUTSIDE RECORDS SUMMARY | 2025-03-06 07:03 | XMS_ITS | Clinical Summary ---
Author Organization [facility] Address [address], [address] [place] [address] Care Team Providers Care Social Economist Name Role Phone Tammie Judge CHANNELING MACHINE OPERATOR - VP CARE MANAGEMENT Primary Care Provider Unavailable Allergies Active Allergy [...] on file Medical Devices Implanted Type Area City Tax Auditor Device Identifier Shelf Expiration Date Model / Serial / Lot Triad Cc 8 X 11 X 14mm - [id number] Implanted:Qty : 1 on 02/05/2019 by You Fink MD at [facility] Bone/Monument t/Tissue/ Human/Syn th N/A: Spine Cervical [employer]PMM 09/18/2023 [id number] / [id number] / Screw [place] T Susi Self Tap 4x13mm Implanted:Qty : 4 on 02/05/2019 by You Fikn MD at [facility] Spine N/A: Spine Cervical [employer]PMM [id number] / / Plate [place] T 24mm Lvl 1 Implanted:Qty : 1 on 02/05/2019 by You Fink MD at [facility] Spine N/A: Spine Cervical [employer]PMM [id number] / / Explanted Type Area City Tax Auditor Device Identifier Shelf Expiration Date Model / Serial / Lot Pin Distraction Screw Vertebral 12mm Explanted:Qty: 2 on 02/05/2019 by You Fnik MD at [facility] Screw/Pl ate/Nail /Ramiro N/A: Spine Cervical [employer] [id number] / / Insurance [employer] Care Teams Social Economist Relationship Specialty Start Date End Date Tammie Judge APRN - VP CARE MANAGEMENT PCP - General Nurse Practitioner, Family 09/16/18
--- OUTSIDE RECORDS SUMMARY | 2025-03-06 07:04 | XMS_ITS | Clinical Summary ---
Author Organization [facility] Address [address] [place] [address] Care Team Providers Care Collector Name Role Phone Tammie Butterfield CNP Primary Care Provider [phone] Allergies Active Allergy Reactions Criticality Noted Date [...] 70 mg by mouth once a week. 08/25/2024 Active atorvastatin (Lipitor) 40 mg tablet Take [...] mouth in the morning. 90 tablet 3 01/19/2025 01/20/20 26 Active Active Problems Problem Noted Date Diagnosed Date Coccygeal pain 02/22/2025 Compression fracture of thor acic vertebra with routine healing 02/22/2025 Shortness of breath 02/22/2025 Cardiovascular stress test abnormal 02/22/2025 Primary hypertension 01/18/2025 Mixed hyperlipidemia 01/18/2025 Nonrheumatic aortic valve insufficiency 01/19/20 Cervical disc herniation 01/29/2019 Cervical stenosis of spine 01/29/2019 Tobacco use disorder 01/29/2019 Osteopenia 12/11/2016 Encounters Date Type Department Care Team Description 02/22/2025 10:00 AM EDT Office Visit [facility] [address] [place] [place] [address] Benja Gregory MD Cardiovascular stress test abnormal (Primary Dx); Shortness of breath; Primary hypertension; Mixed hyperlipidemia; Nonrheumatic aortic valve insufficiency; Palpitations; Abnormal EKG 02/16/[address] [facility] [address] [place] [address] ProviderJose MD 01/19/[address] [facility] [address] [place] [place] [address] ProviderJose MD 01/19/[address] [facility] [address] [place] [place] [address] Faye Tripathi MA Primary hypertension 01/18/2025 3:15 PM EDT Office Visit [facility] [address] [place] [place] [address] Benja Gregory MD Primary hypertension (Primary Dx); Mixed hyperlipidemia; Nonrheumatic aortic valve insufficiency; Palpitations; Shortness of breath; Abnormal EKG 01/18/[address] [facility] [address] [place] [place] [address] Faye Tripathi MA Nonrheumatic aortic valve insufficiency [...] pur e alcohol) 6 beers per week [place] Safety & Environment Answer Date Rec orded Fear of Current or Ex-Partner Not on file Emotionally Abused Not on file 09/12/2023 Physically Abused Not on file 09/12/2023 Sexually Abused Not on file 09/12/2023 Physically or Sexually Abused Not on file Comments Unknown Sex and Gender Information Value Date Recorded Sex Assigned at Female 02/17/2025 4:22 PM EDT Legal Sex Female 10:46 PM EDT Gender Identity Female 02/17/2025 4:22 PM EDT Sexual Orientation Heterosexual or Straight 01/21 4:22 PM EDT Last Filed Vital Signs Vital Sign Reading Time Taken Comments Blood Pressure 119/74 02/22/2025 9:53 AM EDT Pulse 88 02/22/2025 9:53 AM EDT Temperature - - Respiratory Rate - - Oxygen Saturation 97% 02/22/2025 9:53 AM EDT Inhaled Oxygen Concentration - - Weight 91.2 kg (201 lb) 01/18/2025 4:00 PM EDT Height 160 cm (5' 3 ) 02/22/2025 9:53 AM EDT Body Mass Index 35.61 01/18/2025 4:00 PM EDT Plan of Treatment Upcoming Encounters Date Type Department Care Team (Late st Contact Info) Description 03/10/2025 12:00 PM EDT Hospital Encounter [facility] [address] [place] [address] Benja Gregory MD [address] [facility] [place] [address] Shortness of breath; Cardiovascular stress test abnormal 03/10/2025 2:00 PM EDT - 03/10/2025 3:00 PM EDT Surgery [facility] [address] [place] [address] Benja Gregory MD [address] [facility] [place] [address] Coronary angiography Health Maintenance Due Date Last Done Comments [...] Vaccines (1 of 2) 2015 COVID-19 Vaccine ( - season) 2024 Mammogram 04/24/2024 04/24/2022 Influenza [...] Procedure Name Priority Date/Time Associated Diagnosis Comments TREADMILL STRESS MYOCARDIAL PERFUSION IMAGING Routine 02/12/2025 9:15 AM EDT ECG 12-LEAD Routine 01/18/2025 9:07 AM EDT from Last 3 Months Results * Treadmill Stress Myocardial Perfusion Imaging (02/12/2025 9:15 AM EDT) Anatomical Region Laterality Modality Other us Historical Provider CV STRESS PROCEDURES Wilma ajay Result * ECG 12 lead (01/18/2025 9:07 AM EDT) us Historical Provider ECG ORDERABLES Final Res ult from Last 3 Months Insurance [employer] Care Teams Collector Relationship Specialty Start Date End Date Tammie Butterfield CNP [facility] [facility], [place] [address] PCP - General Family Medicine 01/15/25
--- OUTSIDE RECORDS SUMMARY | 2025-03-06 07:04 | XMS_ITS | Clinical Summary ---
Author Organization [facility] Address [address] [place] [address] Care Team Providers Care Care Aid Name Role Phone Unallocated, Noms Provider Primary Care Provi lbu Tammie Butterfield MD Unavailable [phone] ViscLogan gama DO Unavailable [phone] Allergies Active Allergy Reactions Criticality Noted [...] GUZMAN [address] [place] [address] Logan Rankin DO [address] [place] [address] Health Maintenance Due Date Last Done Comments [...] Narrative 04/24/2022 12:00 PM EDT PERFORMED AT [facility] LOCATION:[id number] Procedure Note CONVERSION, GENERIC - 01/25/2023 PERFORMED AT [facility] LOCATION:[id number] Logan Rankin DO IMG BI PROCEDURES Final Resul t from Last 3 Months or Most Recently Relevant to Health Maintenance Insurance [facility] Care Teams Care Aid Relationship Specialty Start Date End Date Unallocated, Noms Provider, [facility] [place] [address] PCP - General Family Medicine 09/20/23 Tammie Butterfield MD [address] [place] [address] Referring Physician Family Medicine 09/20/23 Logan Rankin DO [address] [facility] [address] [place] [address] Referring Physician Obstetrics and Gynecology 09/20/23
--- OUTSIDE RECORDS SUMMARY | 2025-03-06 07:04 | XMS_ITS | Patient Health Record ---
Author Organization [facility] Address [address] [place] [address] Care Team Providers Care Press Operator Meat Name Role Phone Tammie Butterfield Primary Care Provider Unavailabl Mil Tan Unavailable [phone] Emeterio Escalante Unavailable [phone] Charmaine Figueroa Unavailable [phone] Allergies Allergen (clinical drug ingredient) Drug/Non Drug Allergy documented on EMR Reaction Allergy Type Onset Date Status tramadol traMADol Unknown Drug Allergy Active Reason For Referral Reason APPROVED............ ...........................NOT SCHEDULED....................................[facility] THORACIC TO BE DONE AT [facility] Diagnosis 1 Compression fracture of T4 vertebra with routine healing, subsequent encounter (S22.040D) Referral Organization [facility] Referring Provider First Name Mil Referring Provider Last Name [facility] Referring Provider Speciality Orthopedic Surgery Referred Organization [facility] Referred Address [address] [place],[address], Procedure 1 MRI Thoracic Spine w /o Dye ([id number]) General Notes Nuha Mosley 2024 08:43:11 AM >, Tootie Mathew 08/14/2024 09:06:33 AM > WAITING ON TODAY'S OFFICE NOTE, Tootie Mathew 08/19/2024 11:28:39 AM > AUTHORIZATION REQUEST SUBMITTED WITH CLINICALS VIA R PROVIDER PORTAL, ., Tootie Mathew 08/26/2024 08:15:15 AM > AUTHORIZATION # [id number] APPROVED AND VALID 08/21/24-11/19/24 PER [facility] PROVIDER PORTAL. SCANNED INTO CHART AND FAXED TO [facility].Trudy Sara 08/26/2024 09:40:44 AM > order faxed Referral Priority Routine Reason REFERRAL FOR DR FONSECA FOR KYPHOPLASTY Diagnosis 1 Compression fracture of T4 vertebra with routine healing, subsequent encounter (S22.040D) Referral Organization [facility] Referring Provider First Name Mil Referring [...] Problem Status W/U Status Risk Notes Problem [id number] Coccygeal pain (M53.3) Active confirmed Problem [id number] Compression fracture of T4 vertebra with routine healing, subsequent encounter (S22.040D) Active confirmed Vital Signs Height 5'3 in 08/14/2024 Weight 195 lbs 08/14/2024 BMI 34.54 08/14/2024 Encounters Encounter Location Date Provider Diagnosis [facility] [address] [place] [address] 08/14/2024 Emeterio Cherryo Compression fracture of T4 vertebra with routine healing, subsequent encounter S22.040D and Coccygeal pain M53.3 [facility] [address] [facility] [place] [address] 08/28/2024 [place] [facility] Compression fracture of T4 vertebra with routine healing, subsequent encounter S22.040D [facility] [address] [place] [address] 09/09/2024 Mil Seo Assessments Encounter Date Diagnosis [...] Date Coverage End Date [employer] [address] [address] [place] [address] [id number] EVELIO AGUDELO Self - patient is the insured Medical (General) History Medical History History ICD Code Hypertension Bronchitis GERD: Surgical History Surgery Date(Month/Year) A/P repair Cyst removed - Right Breast Neck fusion 2016
--- OUTSIDE RECORDS SUMMARY | 2025-03-06 07:04 | XMS_ITS | CCD ---
Author Organization [facility] Care Team Providers Care Telesales Manager Name Role Phone VICENTE BARAKAT H. Referring [...] Consulting Unavailable DAISY, TAMMIE Primary Care Unavailable IDA, DR BLAISE Lowe Consulting Unavailable DAISY, TAMMIE Admitting Unavailable DAISY, TAMMIE Attending Unavailable DAISY, TAMMIE Consulting Unavailable Ly, DO Debo Zamora Attending Provider [phone] MARCEL Villa-C Tammie Kate Primary Care Provider ROSA CARRION Attending Unavailable Daisy [employer] SALESPERSON-C Tammie Kate Primary Care Provider Joshua Maier DO Attending Provider Daisy Tammie Kate Primary Care Unavailable Bial[place]i, Joshua N Admitting Unavailable [place], Joshua N Attending Unavailable [place] Joshua N Attending Unavailable Daisy, Tammie Kate Primary Care Unavailable [place], Joshua N Admitting Unavailable [place], Ojshua N Attending Unavailable Daisy, Tammie Kate Primary Care Unavailable [place], Joshua N Admitting Unavailable Daisy, Tammie Kate Primary Care Unavailable Debo Padilla Admitting Unavailable Debo Padilla Attending Unavailable ELIZABETH GALLARDO Attending Unavailable ELIZABETH GALLARDO Attending Unavailable Allergies Allergy Classification Reported Allergen(s) Allergy Type Date of Onset Reaction(s) Facility (8 sources) Chlorhexidine Drug Allergy 1 Rash [facility] Repository (9 sources) traMADol; Translations: [TRAMADOL] Drug Allergy 7 Hives [facility] Repository (8 sources) Isopropyl Alcohol; Translations: [isopropyl alcohol] Drug Allergy 4 [facility] (1 source) Chlorhexidine Drug Allergy 5 [facility] Repository (1 source) traMADol Drug Allergy 5 [facility] Repository (1 source) CAT DANDER; Translations: [CAT DANDER] Propensity to adverse reactions to drug (disorder) 4 [facility] Repository (1 source) OTHER; Translations: [OTHER] Propensity to adverse reactions (disorder) 4 [facility] Repository Medications Current Medications Medication Drug [...] Daily as needed for pain 60 30 August 24th, 2025 1:00am leave on most painful area for [...] conditions (not mental disorders or infectious disease) (18 sources) Encounter for screening mammogram for malignant [...] Test Name Value Interpretation Reference Range Facility Office Visiton 02-22-2025 Follow-up visit [id number] Edilma Agudelo 1965 F Date Provider Department Center 02/22/2025 ELIZABETH KEATING EVAN [facility] Family History Problem Relation Age of Onset Hypertension Mother Cancer Father Family Status - Relation Status Age at Mother Alive Father Sister Alive Brother Level of Service:51776 [place] OFFICE/OUTPATIENT ESTABLISHED HIGH MDM 40 MIN Normal [facility] Orders Onlyon 02-16-2025 Orders Only [id number] Edilma Agudelo 1965 F Date Provider Department Center 02/16/2025 [id number], HISTORICAL [facility] Family History Problem Relation Age of Onset Hypertension Mother Cancer Father Family Status - Relation Status Age at Mother Alive Father Sister Alive Brother Normal [facility] Orders Onlyon 01-19-2025 Orders Only [id number] Edilma Agudelo 1965 F Date Provider Department Center 01/19/2025 [id number], HISTORICAL [facility] Family History Problem Relation Age of Onset Hypertension Mother Cancer Father Family Status - Relation Status Age at Mother Alive Father Sister Alive Brother Normal [facility] Office Visiton 01-18-2025 Follow-up visit [id number] Edilma Agudelo 1965 F Date Provider Department Center 01/18/2025 ELIZABETH KEATING EVAN [facility] Family History Problem Relation Age of Onset Hypertension Mother Cancer Father Family Status - Relation Status Age at Mother Alive Father Sister Alive Brother Level of Service:42895 [place] OFFICE/OUTPATIENT NEW MODERATE MDM 45 MINUTES (25) Normal [facility] X-ray reportOrdered By: Jesse Julio on 12-09-2024 Study report [facility] [place] [address] XRay Report Signed Patient: Edilma Agudelo MR#: [id number] 1753 : 1965 Acct:[id number] Age/Sex: 59 / F ADM Date: 5 Loc: XD Room: Type: [facility] Attending Dr: Joshua Maeir DO Copies to: Joshua Maier DO~ Ordering [...] Julio M.D. 12/09/2024 10:34 AM Dictation Location: [facility]-- Transcribed By: YARELIS 12/09/24 1034 Dictated By: Jesse Julio II, MD 12/09/24 1031 Signed By: 12/09/24 1034 [facility] Work Phone: XR thoracic spine 3V*on 11-20 XR thoracic spine 3V* [facility] [place] [address] XRay Report Signed Patient: Edilma Agudelo MR#: [id number] : 1965 Acct:[id number] Age/Sex: 59 / F ADM Date: 12/09/24 Loc: XD Room: Type: [facility] Attending Dr: Joshua Maier DO Copies to: [...] Julio M.D. 12/09/2024 10:34 AM Dictation Location: [place] [address] Transcribed By: [facility] 12/09/24 1034 Dictated By: Jesse Julio II, MD 12/09/24 1031 Signed By: 12/09/24 1034 Normal [facility] X-ray reportOrdered By: Abimael Herrera on 10-28-2024 Study report [facility] [place] [address] XRay Report Signed Patient: Edilma Agudelo MR#: [id number] 1753 : 1965 Acct:[id number] Age/Sex: 59 / F ADM Date: 5 Loc: XD Room: Type: [facility] Attending Dr: Joshua Maier DO Copies to: [...] PRIOR STUDY FROM 10/12/2024. Impression dictated by: Ruma Samuels Jr.OLilliam10/28/2024 10:52 AM Dictation Location: [facility]IO-PC-23 Transcribed By: YARELIS 10/28/24 105 Dictated By: Jayme Herrera Jr, DO 10/28/24 105 Signed By: 10/28/24 1052 [facility] XR thoracic spine 3V*on XR thoracic spine 3V* [facility] [place] [address] [place] [address] XRay Report Signed Patient: Edilma Agudelo MR#: [id number] : 1965 Acct:[id number] Age/Sex: 59 / F ADM Date: 10/28/24 Loc: XD Room: Type: [facility] Attending Dr: Joshua Maier DO Copies to: [...] PRIOR STUDY FROM 10/12/2024. Impression dictated by: Ruma Samuels Jr.OLilliam10/28/2024 10:52 AM Dictation Location: [facility]23 Transcribed By: YARELIS 10/28/24 105 Dictated By: Jayme Herrera Jr, DO 10/28/24 105 Signed By: 10/28/24 1052 Normal [facility] X-ray reportOrdered By: Geovanny Negrete on 10-12-2024 Study report [facility] Main [place] [id number] XRay Report Signed Patient: Edilma Agudelo MR#: [id number] 1753 : 1965 Acct:[id number] Age/Sex: 59 / F ADM Date: 5 Loc: XD Room: Type: REG CLI Attending [...] Trey Negrete M.D.10/12/2024 4:21 PM Dictation Location: [place] [address] Transcribed By: [facility] 10/12/24 162 Dictated By: Trey Negrete DO 10/12/24 1619 Signed By: 10/12/24 1621 [facility] XR thoracic spine 3V*on 09-20 XR thoracic spine 3V* [facility] Main [address] [address] XRay Report Signed Patient: Edilma Agudelo MR#: [id number] : 1965 Acct:[id number] Age/Sex: 59 / F ADM Date: 10/12/24 Loc: XD Room: Type: REG CLI Attending [...] Trey Negrete M.D.10/12/2024 4:21 PM Dictation Location: [place] [address] Transcribed By: [facility] 10/12/24 1621 Dictated By: Trey Negrete DO 10/12/24 1619 Signed By: 10/12/24 1621 Normal [facility] Pathology Request for Lab Co rpon 05-01-2024 Pathology Request for Lab [place] Normal [facility] Comment on above: Order Comment: PATHO LOGY GI SPECIMEN Result Comment: See report. Scanned copy available in EMR. PERFORMED BY: [place] [address] PATHOLOGIST SAFETY DIRECTOR TI ROLDAN M.D. Performed By: #### P ATH TO [facility] #### [address] INSULINon 11-19-2022 Insulin 18.1 uIU/mL Normal 2.6-24.9 [facility] Comment on above: Performed By: #### I NSULIN #### [facility] [address] [place] [address] [address] Jeny Helms CBC AUTO DIFFon 11-17-2022 BASO # 0.1 103/ul Normal 0.0-0.1 [facility] Comment on above: Performed By: #### C BC ####[facility] [address] [place] [address]Dr. Jeny Helms Basophils/100 WBC (Bld) 1.4 % Normal 0.2-2.0 [facility] Comment on above: Performed By: #### C BC ####[facility] [address] [place] [address]Dr. Jeny Helms EO # 0.2 103/ul Normal 0.0-0.7 [facility] Comment on above: Performed By: #### C BC ####[facility] [address] [place] [address]Dr. Jeny Helms Eosinophils/100 WBC (Bld) 3.8 % Normal 0.9-7.0 [facility] Comment on above: Performed By: #### C BC ####[facility] [address] [place], [place] [address]Dr. Jeny Helms Erythrocyte distribution width (RBC) [Ratio] 13.3 % Normal 11.0-15.0 [facility] Comment on above: Performed By: #### C BC ####[facility] [address] [place], [place] [address]Dr. Jeny Helms Hematocrit (Bld) [Volume fraction] 41.2 % Normal 36.0-48.0 [facility] Comment on above: Performed By: #### C BC ####[facility] [address] [place], [place] [address]Dr. Jeny Helms Hemoglobin (Bld) [Mass/Vol] 13.5 g/dL Normal 12.0-16.0 [facility] Comment on above: Performed By: #### C BC ####[facility] [address] [place], [place] [address]Dr. Jeny Helms IG # 0.01 10e3/ul Normal 0.00-0.03 [facility] Comment on above: Performed By: #### C BC ####[facility] [address] [place], [place] [address]Dr. Jeny Helms IG % 0.2 % Normal 0.0-0.5 [facility] Comment on above: Performed By: #### C BC ####[facility] [address] [place], [place] [address]DrLilliam Jeny Scooter LYMPH # 1.3 103/ul Normal 1.2-3.8 [facility] Comment on above: Performed By: #### C BC ####[facility] [address] [place], [place] [address]Dr. Jeny Helms Lymphocytes/100 WBC (Bld) 30.0 % Normal 20.5-60.0 [facility] Comment on above: Performed By: #### C BC ####[facility] [address] [place] [address]Dr. Jeny Helms MANUAL DIFF REQ NO Normal [facility] Comment on above: Performed By: #### C BC ####[facility] [address] [place] [address]Dr. Jeny Helms MCH (RBC) [Entitic mass] 31.4 pg Normal 26.7-34.0 [facility] Comment on above: Performed By: #### C BC ####[facility] [address] [place], [place] [address]Dr. Jeny Helms MCHC (RBC) [Mass/Vol] 32.8 g/dL Normal 29.9-35.2 [facility] Comment on above: Performed By: #### C BC ####[facility] [address] [place], [place] [address]Dr. Jeny Helms MCV (RBC) [Entitic vol] 95.8 fL Normal 81.0-99.0 [facility] Comment on above: Performed By: #### C BC ####[facility] [address] [place], [place] [address]Dr. Jeny Helms MONO # 0.5 103/ul Normal 0.3-0.8 [facility] Comment on above: Performed By: #### C BC ####[facility] [address] [place], [place] [address]Dr. Jeny Helms Monocytes/100 WBC (Bld) 10.6 % Normal 1.7-12.0 [facility] Comment on above: Performed By: #### C BC ####[facility] [address] [place], [place] [address]DrLilliam Helms NEUT # 2.4 103/ul Normal 1.4-6.5 [facility] Comment on above: Performed By: #### C BC ####[facility] [address] [place], [place] [address]Dr. Jeny Helms Neutrophils/100 WBC (Bld) 54.0 % Normal 43.0-75.0 [facility] Comment on above: Performed By: #### C BC ####[facility] [address] [place] [address]Dr. Yvroselorna Scooter Platelet mean volume (Bld) [Entitic vol] 10.3 fL Normal 9.5-13.5 [facility] Comment on above: Performed By: #### C BC ####[facility] [address] [place] [address]Dr. Jeny Helms PLT 258 103/ul Normal 150-450 [facility] Comment on above: Performed By: #### C BC ####[facility] [address] [place] [address]Dr. Jeny Helms RBC 4.30 106/ul Normal 4.20-5.40 [facility] Comment on above: Performed By: #### C BC ####[facility] [address] [place] [address]Dr. Jeny Helms WBC 4.4 103/ul Normal 4.0-11.0 [facility] Comment on above: Performed By: #### C BC ####[facility] [address] [place] [address]DrLilliam Helms FREE THYROXINE INDEX T7on FTI 2.72 Normal 1.30-4.50 [facility] Comment on above: Performed By: #### L IPID, T7, TSH, CMP #### [facility] [address] [place] [address] [address] Jeny Helms T3U 32.0 % Normal 30.0-39.0 [facility] Comment on above: Performed By: #### L IPID, T7, TSH, CMP #### [facility] [address] [place] [address] [address] Jeny Helms T4 [Mass/Vol] 8.50 ug/dL Normal 4.80-13.90 [facility] Comment on above: Performed By: #### L IPID, T7, TSH, CMP #### [facility] [address] [place] [address] [address] Jeny Helms GLYCOHEMOGLOBIN A1Con 2022 ADA RECOMMENDATION SEE BELOW Normal [facility] Comment on above: Result Comment: ADA RECOMMENDED LIMIT 4.0 - 6.0 ADA THERAPEUTIC TARGET < 7.0 ACTION SUGGESTED > 7.0 Performed By: #### A 1C #### [facility] [address] [place] [address] [address] Jeny Helms Glucose [Mass/Vol] 100 mg/dL Normal [facility] Comment on above: Performed By: #### A 1C #### [facility] [address] [place] [address] [address] Jeny Helms HbA1c (Bld) [Mass fraction] 5.1 % Normal 4.5-6.2 [facility] Comment on above: Performed By: #### A 1C #### [facility] [address] [place] [address] Dr. Jeny Helms IRONon 11-17-2022 Iron [Mass/Vol] 96.0 ug/dL Normal 50.0-170.0 [facility] Comment on above: Performed By: #### I AUTUMN #### [facility] [address] [place] [address] [address] Jeny Helms LIPID PROFILEon 11-17-2022 CHOL-HDL RATIO NORM SEE BELOW Normal [facility] Comment on above: Result Comment: 3.3 - 4.4 LOW RISK 4.4 - 7.1 AVERAGE RISK 7.1 - 11.0 MODERATE RISK >11.0 HIGH RISK Performed By: #### L IPID, T7, TSH, CMP #### [facility] [address] [place] [address] [address] Jeny Helms Cholesterol [Mass/Vol] 166 mg/dL Normal <=200 [facility] Comment on above: Performed By: #### L IPID, T7, TSH, CMP #### [facility] [address] [place] [address] [address] Jeny Helms Cholesterol in HDL [Mass/Vol] 61 mg/dL Critically high 40-60 [facility] Comment on above: Performed By: #### L IPID, T7, TSH, CMP #### [facility] [address] [place] [address] [address] Jeny Helms Cholesterol in LDL [Mass/Vol] 84.0 mg/dL Normal [facility] Comment on above: Performed By: #### L IPID, T7, TSH, CMP #### [facility] [address] [place] [address] [address] Jeny Helms Cholesterol.total/Ch olesterol in HDL [Mass ratio] 2.7 {ratio} Normal [facility] Comment on above: Performed By: #### L IPID, T7, TSH, CMP #### [facility] [address] [place] [address] [address] Jeny Helms HDL NORMAL > or = 60 mg/dl - LOW CARDIOVASCULAR RISK <40 mg/dl - HIGH CARDIOVASCULAR RISK Normal [facility] Comment on above: Performed By: #### L IPID, T7, TSH, CMP #### [facility] [address] [place] [address] [address] Jeny Helms LDL CALC NORMAL SEE BELOW Normal [facility] Comment on above: Result Comment: <100 mg/dl OPTIMAL 100 - 129 mg/dl NEAR OR ABOVE OPTIMAL 130 - 159 mg/dl BORDERLINE HIGH 160 - 189 mg/dl HIGH >190 mg/dl VERY HIGH Performed By: #### L IPID, T7, TSH, CMP #### [facility] [address] [place] [address] [address] Jeny Helms Triglyceride [Mass/Vol] 105 mg/dL Normal <=150 [facility] Comment on above: Performed By: #### L IPID, T7, TSH, CMP #### [facility] [address] [place] [address] [address] Jeny Helms VLDL CALC 21.0 mg/dL Normal [facility] Comment on above: Performed By: #### L IPID, T7, TSH, CMP #### [facility] [address] [place] [address] [address] Jeny Helms OCC BLD IMMUNO SCREENon - OCCULT BLOOD Negative Normal NEGATIVE [facility] Comment on above: Performed By: #### O BSCRN #### [facility] [address] [place] [address] Dr. Jeny Helms PROF 14(COMP METB)on 023 Albumin [Mass/Vol] 3.7 g/dL Normal 3.4-5.0 [facility] Comment on above: Performed By: #### L IPID, T7, TSH, CMP #### [facility] [address] [place] [address] Dr. Jeny Helms Albumin/Globulin [Mass ratio] 1.0 {ratio} Normal [facility] Comment on above: Performed By: #### L IPID, T7, TSH, CMP #### [facility] [address] [place] [address] Dr. Jeny Helms ALP [Catalytic activity/Vol] 119 U/L Critically high 46-116 [facility] Comment on above: Performed By: #### L IPID, T7, TSH, CMP #### [facility] [address] [place] [address] Dr. Jeny Helms ALT [Catalytic activity/Vol] 43 U/L Normal 14-59 [facility] Comment on above: Performed By: #### L IPID, T7, TSH, CMP #### [facility] [address] [place] [address] Dr. Jeny Helms Anion gap [Moles/Vol] 15.1 mmol/L Normal [facility] Comment on above: Performed By: #### L IPID, T7, TSH, CMP #### [facility] [address] [place] [address] Dr. Jeny Helms AST [Catalytic activity/Vol] 20 U/L Normal 15-37 [facility] Comment on above: Performed By: #### L IPID, T7, TSH, CMP #### [facility] [address] [place] [address] Dr. Jeny Helms Bilirubin [Mass/Vol] 0.5 mg/dL Normal 0.2-1.0 [facility] Comment on above: Performed By: #### L IPID, T7, TSH, CMP #### [facility] [address] [place] [address] Dr. Jeny Helms Calcium [Mass/Vol] 9.3 mg/dL Normal 8.5-10.1 [facility] Comment on above: Performed By: #### L IPID, T7, TSH, CMP #### [facility] [address] [place] [address] Dr. Jeny Helms Chloride [Moles/Vol] 105 mmol/L Normal 98-107 [facility] Comment on above: Performed By: #### L IPID, T7, TSH, CMP #### [facility] [address] [place] [address] Dr. Jeny Helms CO2 [Moles/Vol] 25.0 mmol/L Normal 21.0-32.0 [facility] Comment on above: Performed By: #### L IPID, T7, TSH, CMP #### [facility] [address] [place] [address] Dr. Jeny Helms Creatinine [Mass/Vol] 0.77 mg/dL Normal 0.55-1.02 [facility] Comment on above: Performed By: #### L IPID, T7, TSH, CMP #### [facility] [address] [place] [address] Dr. Jeny Helms EGFR-AF BULGARIAN >60 Normal >=60 [facility] Comment on above: Performed By: #### L IPID, T7, TSH, CMP #### [facility] [address] [place] [address] Dr. Jeny Helms EGFR-NON AF BULGARIAN >60 Normal >=60 [facility] Comment on above: Performed By: #### L IPID, T7, TSH, CMP #### [facility] [address] [place] [address] Dr. Jeny Helms Globulin (S) [Mass/Vol] 3.7 g/dL Normal [facility] Comment on above: Performed By: #### L IPID, T7, TSH, CMP #### [facility] [address] [place] [address] Dr. Jeny Helms Glucose [Mass/Vol] 103 mg/dL Normal 74-106 [facility] Comment on above: Performed By: #### L IPID, T7, TSH, CMP #### [facility] [address] [place] [address] Dr. Jeny Helms Potassium [Moles/Vol] 4.1 mmol/L Normal 3.5-5.1 [facility] Comment on above: Performed By: #### L IPID, T7, TSH, CMP #### [facility] [address] [place] [address] Dr. Jeny Helms Protein [Mass/Vol] 7.4 g/dL Normal 6.4-8.2 [facility] Comment on above: Performed By: #### L IPID, T7, TSH, CMP #### [facility] [address] [place] [address] Dr. Jeny Helms Sodium [Moles/Vol] 141 mmol/L Normal 136-145 [facility] Comment on above: Performed By: #### L IPID, T7, TSH, CMP #### [facility] [address] [place] [address] Dr. Jeny Helms Urea nitrogen [Mass/Vol] 21.0 mg/dL Critically high 7.0-18.0 [facility] Comment on above: Performed By: #### L IPID, T7, TSH, CMP #### [facility] [address] [place] [address] Dr. Jeny Helms Urea nitrogen/Creatinine [Mass ratio] 27.3 mg/mg Normal [facility] Comment on above: Performed By: #### L IPID, T7, TSH, CMP #### [facility] [address] [place] [address] Dr. Jeny Helms TSHon 11-17-2022 TSH 1.829 uIU/mL Normal 0.358-3.740 [facility] Comment on above: Performed By: #### L IPID, T7, TSH, CMP #### [facility] [address] [place] [address] LUNG CANCER SCREENINGon [...] OCTAVIANO MARIA Date: 2022-10-25 08:12 Normal [facility] MAMM SCREEN 3D ANGUS CADon 04-20-2022 MG MAMM SCREEN 3D ANGUS CAD Patient: EDILMA AGUDELO Exam Date: 04/20/2022 : 1965 Gender:F Ordering : [facility] Admission #: [id number] Family : DR ROSA CARRION Order #: [id number] CLICK HERE TO VIEW EXAM RADIOLOGY REPORT [...] with stomach cancer at age 60. LOCATION: [facility] BREAST COMPOSITION: Heterogeneously dense,which may [...] Dwyer MD on 04/20/2022 at 08:07 Normal [facility] FLUORO FOR SURGICAL PROCEDUR ESon [...] Andrea Medina MD 02/05/19 Final result Normal [facility] Surgical Specimenon 02-06-20 Surgical Specimen [facility] [address] [place] [address] FINAL SURGICAL PATHOLOGY REPORT Patient Name: EDILMA AGUDELO Accession No: [id number] Age Sex: 1965 Location: [facility] Account No: [id number] Collected: 02/05/2019 [facility] Rec No: [id number] Received: 02/05/2019 Attend Phys: VICENTE BARAKAT Completed: [...] in toto in cassette A1. JEMIMA/LEILANI CPT: 72055 X1 LUCAS MCCARTY M.D. 02/06/2019 Electronically signed out by Page 1 of 1 [facility] Comment on above: Performed By: #### S UR #### [facility] [address] [place] [address] Basic Metabolic Panelon 01-19 Anion gap [Moles/Vol] 22 mmol/L Critically high 9-15 [facility] Comment on above: Performed By: #### B MP #### [facility] [address] [place] [address] Calcium [Mass/Vol] 9.6 mg/dL Normal 8.5-9.9 [facility] Comment on above: Performed By: #### B MP #### [facility] [address] [place] [address] Chloride [Moles/Vol] 101 mmol/L Normal 95-107 [facility] Comment on above: Performed By: #### B MP #### [facility] [address] [place] [address] CO2 [Moles/Vol] 18 mmol/L Low 20-31 [facility] Comment on above: Performed By: #### B MP #### [facility] [address] [place] [address] Creatinine [Mass/Vol] 0.59 mg/dL Normal 0.50-0.90 [facility] Comment on above: Performed By: #### B MP #### [facility] [address] [place] [address] GFR/1.73 sq M predicted among blacks MDRD (S/P/Bld) [Vol rate/Area] mL/min/{1.73_m2} Normal >60 [facility] Comment on above: Result Comment: >60 mL/min/1.73m2 EGFR, calc. for ages 18 and older using the MDRD formula (not corrected for weight), is valid for stable renal function. Performed By: #### B MP #### [facility] [address] [place] [address] GFR/1.73 sq M.predicted MDRD (S/P/Bld) [Vol rate/Area] mL/min/{1.73_m2} Normal >60 [facility] Comment on above: Result Comment: >60 mL/min/1.73m2 EGFR, calc. for ages 18 and older using the MDRD formula (not corrected for weight), is valid for stable renal function. Performed By: #### B MP #### [facility] [address] [place] [address] Glucose [Mass/Vol] 82 mg/dL Normal 70-99 [facility] Comment on above: Performed By: #### B MP #### [facility] [address] [place] [address] Potassium [Moles/Vol] 3.8 mmol/L Normal 3.4-4.9 [facility] Comment on above: Performed By: #### B MP #### [facility] [address] [place] [address] Sodium [Moles/Vol] 141 mmol/L Normal 135-144 [facility] Comment on above: Performed By: #### B MP #### [facility] [address] [place] [address] Urea nitrogen [Mass/Vol] 13 mg/dL Normal 6-20 [facility] Comment on above: Performed By: #### B MP #### [facility] [address] [place] [address] CBC With Platelet No Differe ntialon 01-29-2019 Erythrocyte distribution width (RBC) [Ratio] 13.8 % Normal 11.5-14.5 [facility] Comment on above: Performed By: #### C BCND #### [facility] [address] [place] [address] Hematocrit (Bld) [Volume fraction] 44.5 % Normal 37.0-47.0 [facility] Comment on above: Performed By: #### C BCND #### [facility] [address] [place] [address] Hemoglobin (Bld) [Mass/Vol] 15.3 g/dL Normal 12.0-16.0 [facility] Comment on above: Performed By: #### C BCND #### [facility] [address] [place] [address] MCH (RBC) [Entitic mass] 33.6 pg Critically high 27.0-31.3 [facility] Comment on above: Performed By: #### C BCND #### [facility] [address] [place] [address] MCHC (RBC) [Mass/Vol] 34.4 % Normal 33.0-37.0 [facility] Comment on above: Performed By: #### C BCND #### [facility] [address] [place] [address] MCV (RBC) [Entitic vol] 97.6 fL Normal 82.0-100.0 [facility] Comment on above: Performed By: #### C BCND #### [facility] [address] [place] [address] Platelets (Bld) [#/Vol] 200 10*3/uL Normal 130-400 [facility] Comment on above: Performed By: #### C BCND #### [facility] [address] [place] [address] RBC (Bld) [#/Vol] 4.56 10*6/uL Normal 4.20-5.40 [facility] Comment on above: Performed By: #### C BCND #### [facility] [address] [place] [address] WBC (Bld) [#/Vol] 6.6 10*3/uL Normal 4.8-10.8 [facility] Comment on above: Performed By: #### C BCND #### [facility] [address] [place] [address] Prothrombin Timeon 9 INR Coag (PPP) [Relative time] 0.9 {INR} Normal [facility] Comment on above: Result Comment: Warf erin Therapy INR Therapeutic: 2.0-3.0 With Mechanical Valve: >2.5 Low-intensity Therapeutic Range: 1.5-2.0 Mod-intensity Therapeutic Range: 2.0-3.0 High-intensity Therapeutic Range: 2.5-3.5 HIgh-intensity Therapeutic Range: 3.0-4.0 Common Critical/Alarm Value: 5.0 Common Upper Limit Reported: 10.0 Effective 01/29/2019: Please note reference ranges have changed. Performed By: #### P T #### [facility] [address] [place] [address] PT Coag (PPP) [Time] 12.3 s Normal 12.3-14.9 [facility] Comment on above: Result Comment: Effe ctive 01/29/19 Please note reference ranges have changed. Performed By: #### P T #### [facility] [address] [place] [address] Type and Screen Capture 3 sc rn cellon 01-29-2019 Type and Screen Capture 3 scrn cell PAT[facility]: [facility]NUS [id number] : 1965 SEX: F ORDERED BY: COLLEEN Villanueva ORDERED : 01/29/2019 13:45 COLLECTED: 01/29/2019 14:58 ORDER : [id number] RECEIVED : 01/29/2019 14:58 TEST NAME RESULT UNITS RANGES ABN FL ST ABORH Capture B POS F Antibody 3 Cell Scrn Captu NEG F Normal [facility] Comment on above: Performed By: #### T S3C #### [facility] [address] [place] [address] Vital Signs Date Time Vital Sign Value Performing Clinician Hardeep ram 12-09-2024 09:01-0400 Body weight 91.7 kg Tammie Daisy [employer] Work Phone: [facility] 12-09-2024 09:01-0400 Diastolic blood pressure 81 mm[Hg] Tammie Daisy [employer] Work Phone: [facility] 12-09-2024 09:01-0400 Systolic blood pressure 119 mm[Hg] Tammie Daisy [employer] Work Phone: [facility] 10-28-2024 10:45-0400 Body height 160.02 cm Tammie Daisy [employer] Work Phone: [facility] 10-28-2024 10:45-0400 Body mass index (BMI) [Ratio] 35.1 kg/m2 Tammie Daisy [employer] Work Phone: [facility] 10-28-2024 10:45-0400 Body weight 90 kg Tammie Daisy [employer] Work Phone: [facility] 10-12-2024 08:07-0400 Body height 160.02 cm [facility] 10-12-2024 08:07-0400 Body mass index (BMI) [Ratio] 34.7 kg/m2 [facility] 10-12-2024 08:07-0400 Body weight 89 kg [facility] 09-14-2024 09:14-0500 Diastolic blood pressure 70 mm[Hg] [facility] 09-14-2024 09:14-0500 Heart rate 88 /min [facility] 09-14-2024 09:14-0500 SaO2% (BldA) [Mass fraction] 97 % [facility] 09-14-2024 09:14-0500 Systolic blood pressure 112 mm[Hg] [facility] 05-01-2024 11:35-0400 Diastolic blood pressure 92 mm[Hg] [employer] Tammie Daisy Work Phone: [facility] 05-01-2024 11:35-0400 Heart rate 76 /min [employer] Tammie Daisy Work Phone: [facility] 05-01-2024 11:35-0400 Respiratory rate 16 /min [employer] Tammie Daisy Work Phone: [facility] 05-01-2024 11:35-0400 SaO2% (BldA) [Mass fraction] 98 % [employer] Tammie Daisy Work Phone: [facility] 05-01-2024 11:35-0400 Systolic blood pressure 138 mm[Hg] [employer] Tammie Villa Work Phone: [facility] 05-01-2024 09:07-0400 Body height 160.02 cm [employer] Tammie Carbajalmer Work Phone: [facility] 05-01-2024 09:07-0400 Body temperature 98.1 [degF] [employer] Tammie Daisy Work Phone: [facility] 05-01-2024 09:07-0400 Body weight 88.45 kg [employer] Tammie Villa Work Phone: [facility] 04-17-2024 09:40-0400 Body height 160.02 cm [facility] 04-17-2024 09:40-0400 Body mass index (BMI) [Ratio] 34.5 kg/m2 [facility] 04-17-2024 09:40-0400 Body weight 88.45 kg [facility] Encounters Encounter Date Encounter Type Care Provider Facility Start: 02-22-2025 End: 02-22-2025 ambulatory [facility] Start: 01-18-2025 End: 01-18-2025 ambulatory [facility] Start: 12-09-2024 End: 12-09-2024 Patient encounter procedure Tammie Villa [employer] Work Phone: [facility] Neurosurgery Work Phone: Start: 12-09-2024 End: 12-09-2024 Patient encounter procedure Tammie Daisy [employer] Work Phone: [facility] Work Phone: Start: 12-09-2024 End: 12-09-2024 ambulatory Tammie Villa Facility:[facility] Start: 10-28-2024 End: 10-28-2024 Patient encounter procedure Tammie Daisy [employer] Work Phone: [facility] Neurosurgery Work Phone: Start: 10-28-2024 End: 10-28-2024 ambulatory Tammiejessica Love Daisy [employer] Work Phone: [facility] Work Phone: Start: 10-12-2024 End: 10-12-2024 ambulatory Tammie Villa [employer] Work Phone: [facility] Work Phone: Start: 10-12-2024 End: 10-12-2024 Patient encounter procedure [facility] Neurosurgery Work Phone: Start: 10-07-2024 End: 10-07-2024 ambulatory ROSA A VISCI Not Available Start: 09-14-2024 End: 09-14-2024 ambulatory [facility] Work Phone: Start: 09-14-2024 End: 09-14-2024 Patient encounter procedure [facility] Pain [facility]mt Work Phone: Start: 05-01-2024 Non-patient / Non-visit [employer] Tammie Villa Work Phone: [facility] Gastroenterology Work Phone: Start: 05-01-2024 End: 05-01-2024 Admission to same day surgery center [employer] Tammie Villa Work Phone: [facility] Work Phone: Start: 05-01-2024 End: 05-01-2024 ambulatory [employer] Tammie Villa Work Phone: [facility] Work Phone: Start: 04-17-2024 End: 04-17-2024 ambulatory [facility] Work Phone: Start: 04-17-2024 End: 04-17-2024 Patient encounter procedure [facility] Gastroenterology Work Phone: Start: 11-22-2022 Encounter for genera l adult medical examination without abnormal findings TAMMIE VILLA [facility] Start: 11-17-2022 End: 11-18-2022 ambulatory TAMMIE VILLA Facility:[facility] Start: 11-17-2022 End: 11-18-2022 Encounter for general adult medical examination without abnormal findings TAMMIE VILLA Facility:[facility] Start: 10-24-2022 End: 10-25-2022 ambulatory TAMMIE VILLA Facility:[facility] Start: 04-20-2022 End: 04-21-2022 ambulatory TAMMIE VILLA Facility:[facility] Start: 02-05-2019 End: 02-05-2019 Patient encounter procedure [facility] Start: 01-29-2019 End: 02-03-2019 Patient encounter procedure [facility] Procedures Date Procedure Procedure Detail Performing Clinician Start: 12-09-2024 X-ray of thoracic spine, three views Tammie Villa [employer] Work Phone: Start: 10-28-2024 X-ray of thoracic spine, three views Tammie Villa [employer] Work Phone: Start: 10-12-2024 X-ray of thoracic spine, three views Tammie Villa [employer] Work Phone: Start: 05-01-2024 Esophagogastroduodenoscopy [employer] Tammie ch Work Phone: Start: 02-05-2019 INCENTIVE [...] Activity Detail Author Start: 09-14-2024 Patient referral [facility] Work Phone: Start: 05-01-2024 [facility] Patient Education Hemorrhoids (D C) Diverticulosis (DC) Hiatal Hernia (DC) Colon Polypectomy (DC) Know your Meds [facility] Work Phone: Patient referral [facility] Work Phone: XR Thoracic spine 3 Views [facility] Immunizations Immunization Date Immunization Notes Care Provider Pavan johnson 05-22-2020 influenza, high dose seasonal, preservative-free [facility] 05-18-2020 influenza, injectabl e, quadrivalent, preservative free [facility] 05-16-2020 tetanus toxoid, redu maximiliano diphtheria toxoid, and acellular pertussis vaccine, adsorbed [facility] 05-20-2019 influenza virus vacc ine, unspecified formulation [facility] 04-17-2019 influenza, injectabl e, quadrivalent, contains preservative [facility] Payers Date Payer Category Payer Self-pay [id number] 1965 Unknown [id number] 2.16.8 [id number] 1965 Unknown [id number] 2.16.8 [id number] 1965 Unknown [id number] 2.16.84 [id number] 1965 Unknown [id number] 2.16.84 [id number] 1965 Unknown [id number] 2.16.84 [id number] 1965 Unknown [id number] 2.16.84 [id number] 1959 Unknown [id number] 1959 Unknown [id number] Unknown [id number] 2.16.8 [id number] Unknown [id number] 2.16.8 [id number] Unknown [id number] 2.16.8 [id number] Unknown [id number] 2.16.8 [id number] Social History Date Type Detail Facility Start: 04-17-2024 Tobacco smoking stat us MEIS Never smoked tobacco (finding) [facility] Start: 1965 Sex Assigned At Female F [facility] Start: 05-01-2024 End: 09-18-2024 Tobacco smoking status NHIS Ex-smoker (finding) [facility] Start: 09-14-2024 End: 12-10-2024 Sex Female (finding) [facility] Goals Date Patient Goal Desired Activity /State Clinical Notes 05-01-2024 to 02-22-2025 Note Date & Type Note Facility 02-22-2025 Note [place] [facility] Subjective Edilma Agudelo is a 59 y.o. year old female patient being seen for an abnormal stress test. Patient states she feels fine. Patient denies chest pain, leg pain/swelling, fatigue or dizziness. Patient states she does get winded when she goes up her steps at home, occasional palpitation. Patient Active Problem List Diagnosis Primary hypertension Mixed hyperlipidemia Nonrheumatic aortic valve insufficiency Cervical disc herniation Cervical stenosis of spine Coccygeal pain Compression fracture of thoracic vertebra with routine healing Osteopenia Tobacco use disorder Family History Problem Relation Name Age of Onset Hypertension Mother Cancer Father Social History Tobacco Use Smoking status: Former Types: Cigarettes Smokeless tobacco: Never Substance Use Topics Alcohol use: Yes Alcohol/week: 6.0 standard drinks of alcohol Types: 6 Cans of beer per week Comment: 6 beers per week Drug use: Yes Types: Marijuana Comment: occasional edible HPI Edilma is seen in follow up to review the recent stress test. She was initially seen on 01/18/2025 as a new patient referred from her PCP. She is a 59-year-old woman with history of hypertension and hyperlipidemia both on treatment. She is an ex-smoker. She recently underwent an echocardiogram that showed evidence of mild aortic valve regurgitation. Her ventricular function is at the lower limits of normal with an EF of 50%. Right-sided pressures were normal. She also complains of palpitations that are short-lived happening about 5-6 times a year, last time was 1 month ago. She does not have lower extremity edema. At visit of 01/18/2025 I added amlodipine 5 mg daily for better control of blood pressure. I also checked a stress test to rule out evidence of ischemia due to her symptoms of shortness of breath. Today she reports that she continues to have similar symptoms. She denies chest pain. She has shortness of breath on exertion NYHA class II symptoms. This is especially when she walks up the stairs. Review of Systems Cardiovascular: Positive for dyspnea on exertion and palpitations. Objective Visit Vitals BP 119/74 (BP Location: Left arm, Patient Position: Sitting) Pulse 88 Ht 1.6 m (5' 3 ) SpO2 97% BMI 35.61 kg/m??? Smoking Status [...] mouth once a week., Disp: , Rfl: amLODIPine (Norvasc) 5 mg tablet, Take 1 tablet (5 mg) by mouth in the morning., Disp: 90 tablet, Rfl: 3 aspirin 81 mg EC tablet, Take 81 [...] by mouth before breakfast., Disp: , Rfl: Recent Labs Blood testing 02/21/2024: Hemoglobin 13.1, platelets 250, potassium 4.2, BUN 25, creatinine 0.84, EGFR more than 60, hemoglobin A1c 4.9, LFTs normal, (more content not included)... [facility] 01-18-2025 Note [place] [facility] Subjective Edilma Agudelo is a 59 y.o. [...] 3. Normal diast (more content not included)... [facility] 10-12-2024 Evaluation note Diagnosis Onset Date Resolution Compression fracture of T4 vertebra with routine healing acute October 12, 2024 8:08am Compression fracture of T4 vertebra with routine healing acute October 28, 2024 10:24am Compression fracture of T4 vertebra with routine healing acute December 09, 2024 8 :56am [facility] Work Phone: 1(603) 175-372502-24-2025 Evaluation note* Diagnosis Onset Date Resolution Status Admit Date Compression fracture of T4 vertebra with routine healing acute Fe bruary 2024 7:57am Mid back pain acute September 142024 7:57am Other chronic pain acute Februa ry 2024 7:57am Compression fracture of T4 vertebra with routine healing acute Ma rch 2024 8:08am [facility] Work Phone: 1(242) 431-489202-24-2025 Evaluation note* Diagnosis Onset Date Resolution Status Admit Date Compression fracture of T4 vertebra with routine healing acute Fe bruary 2024 7:57am Mid back pain acute September 142024 7:57am Other chronic pain acute Februa ry 2024 7:57am Compression fracture of T4 vertebra with routine healing acute Ma rch 2024 8:08am Compression fracture of T4 vertebra with routine healing acute Ap ril 2024 10:24am [facility] Work Phone: 1(443) 873-620610-11-2024 History and physical note Author Debo Padilla [facility] May 01, 2024 10:28am Note Date/Time May 01, 2024 9 :59am [facility] [address] [place] [address] Gastroenterology H&P Signed Patient: Edilma Agudelo MR#: [id number] : 1965 Acct:[id number] Age/Sex: 58 / F Adm Date: 4 Loc: Room: Type: [facility] Attending Dr: Debo Padilla DO Copies to: [...] signed by Debo Padilla DO> 05/01/[address] [facility] Work Phone: 1(623) 897-928510-11-2024 [facility] Diagnosis Onset Date Resolution Status Dyspepsia acute Dysphagia acute Encounter for screening colonoscopy acute Family history of colon cancer acute [facility] Work Phone: Evaluation note* Diagnosis Onset Date Resolution Status Dysphagia acute Encounter for screening colonoscopy acute GERD (gastroesophageal reflux disease) acute [facility] Work Phone: Evaluation note* Diagnosis Onset Date Resolution Status Admit Date Compression fracture of T4 vertebra with routine healing acute Fe bruary 2024 7:57am Mid back pain acute September 142024 7:57am Other chronic pain acute Februa 2024 7:57am [facility] Work Phone: Hospital Discharge instructions Additional Instructions [...] NOT operate machinery such as power tools, [employer], [employer]s, [employer] machines, etc. for 24 hours. - Avoid [...] NOT operate machinery such as power tools, [employer] mowers, snow blowers, sewing machines, etc. for [...] -Follow up with PCP. - Office number [phone]. [facility] Work Phone: Summary Purpose Family History No [...] colon cancer Chief Complaint Refer mary ellen Valentineult GERD Screening, fm hx of colon cancer, GERD Screening, fm hx of colon cancer, GERD Reason for Visit Dysphagia Encounter for screening colonoscopy GERD (gastroesophageal reflux disease) Chief Complaint Admit Date REFF BY SARAH DAILEY CLAIR September 14 7:57am Reason for Visit Admit Date Compression fracture of T4 vertebra with routine healing September 14, 2024 7:57am Mid back pain September 14, 2024 7:57am Other chronic pain September 14, 2024 7:57am Chief Complaint Admit Date REFF BY SARAH DAILEY CLAIR September 14 7:57am Wedge compression fracture of fourth tho racic October 12, 2024 8:08am Reason for Visit Admit Date Compression fracture of T4 vertebra with routine healing September 14, 2024 7:57am Mid back pain September 14, 2024 7:57am Other chronic pain September 14, 2024 7:57am Compression fracture of T4 vertebra with routine healing October 12, 2024 8:08am Chief Complaint Admit Date REFF BY SARAH DAILEY CLAIR September 14 7:57am Wedge compression fracture of fourth tho racic October 12, 2024 8:08am S22.040D M54.9 October 12, 2024 8:4 0am Chief Complaint Admit Date REFF BY SARAH DAILEY CLAIR September 14 7:57am Wedge compression fracture of fourth tho racic October 12, 2024 8:08am S22.040D M54.9 October 12, 2024 8:4 0am S22.040D - Wedge compression fracture of fourth th October 28, 2024 9:33am f/u fracture tspine w/x-ray October 28 10:24am Reason for Visit Admit Date Compression [...] 2024 9:33am f/u fracture tspine w/x-ray October 28, 2 025 10:24am S22.040D December 09, 2024 7:28a m [...] section and content) DATE CREATED AUTHOR 02/06/2019 [facility] DATE CREATED AUTHOR AUTHOR'S ORGANIZ ATION 11/23/2022 [facility] DATE CREATED AUTHOR AUTHOR'S ORGANIZ ATION 10/09/2024 [facility] EPIC DATE CREATED AUTHOR AUTHOR'S ORGANIZ ATION 12/15/2024 [facility] DATE CREATED AUTHOR AUTHOR'S ORGANIZ ATION 02/28/2025 [facility] Care Teams (unrecognized sec tion and content) Team Status: Active Member Role Status Dates PHYSICIAN NO FAMILY Primary Care Provider Active Team Status: Inactive Member Role Status Dates PHYSICIAN NO FAMILY Primary Care Provider Active Start: April 17, 2024 End: April 17, 2024 Debo Padilla DO Attending Provider Active St art: April 17, 2024 End: April 17, 2024 ANTONIO Cifuentes Referring Provider Active Start: April 17, 2024 End: April 17, 2024 Team Status: Active Member Role Status Dates ANTONIO Cifuentes Primary Care Provider Active Team Status: Inactive Member Role Status Dates Debo Padilla DO Attending Provider Active St art: May 01, 2024 End: May 01, 2024 ANTONIO Cifuentes Primary Care Provider Active Start: May 01, 2024 End: May 01, 2024 Team Status: Active Member Role Status Dates Debo Padilla DO Attending Provider, Other Provider Active Start: May 01, 2024 Tammie Kate Daisy , [employer] Primary Care Provider Active Start: May 01, 2024 Team Status: Inactive Member Role Status Dates Tammie Villa [employer] Primary Care Provider Active Start: September 14, 2024 End: September 14, 2024 David Joseph MD Attending Provider Active Sta rt: September 14, 2024 End: September 14, 2024 Sarah Childress MD Referring Provider Active Start: September 14, 2024 End: September 14, 2024 Team Status: Inactive Member Role Status Dates Tammie Villa [employer] Primary Care Provider Active Start: October 12, 2024 End: October 12, 2024 Joshua Maier , DO Attending Provider Active S tart: October 12, 2024 End: October 12, 2024 Team Status: Active Member Role Status Dates Tammie Villa [employer] Primary Care Provider Active Start: October 28, 2024 Joshua Maier , DO Attending Provider Active S tart: October 28, 2024 Team Status: Inactive Member Role Status Dates Tammie Villa [employer] Primary Care Provider Active Start: October 28, 2024 End: October 28, 2024 Joshua Maier , DO Attending Provider Active S tart: October 28, 2024 End: October 28, 2024 Team Status: Inactive Member Role Status Dates Tammie Villa [employer] Primary Care Provider Active Start: December 09, 2024 End: December 09, 2024 Joshuasarai Maier , DO Attending Provider Active S tart: December [...] BE BASED ON THE PRIMARY CLINICAL RECORDS. [facility] [employer] [facility]. provides no warranty or guarantee of the accuracy or completeness of information in this document.
--- OUTSIDE RECORDS SUMMARY | 2025-03-06 07:04 | XMS_ITS | Clinical Summary ---
Author Organization [employer] s tem Address [id number] [address] [place] [address] Care Team Providers Care Car Ferry Captain Name Role Phone Unavailable Primary Care Provider [...] Devices Not on file Insurance [employer] [id number]
--- OUTSIDE RECORDS SUMMARY | 2025-03-06 07:04 | XMS_ITS | Patient Health Record ---
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 Name Role Phone Tammie Villa Primary Care Provider Michael Gaines Unavailable [phone] Joaquin Montanez Unavailable [phone] Kaley Kyle Unavailable [phone] Allergies Allergen (clinical drug ingredient) Drug/Non Drug Allergy documented on EMR Reaction Allergy Type Onset Date Status tramadol traMADol hives Drug Allergy Active Results Component Value Reference Range Notes XR ribs RT 2V Reviewed date:08/11/2024 03:24:23 PM Interpretation: Performing Lab: Notes/Report: Source Facility: [place] [id number] XRay Report Signed Patient: EDILMA AGUDELO MR#: [id number] : 1965 Acct:[id number] Age/Sex: 58 / F ADM Date: 08/10/24 Loc: RAD Attending Dr: TAMMIE VILLA Ordering Physician: TAMMIE VILLA Date of Service: 08/10/24 Procedure(s): XR ribs RT 2V Accession Number(s): [id number] cc: TAMMIE VILLA [place] [address] Patient Name: EDILMA AGUDELO MRN: [id number] date: 1965 Sex: F Assigned Patient Location: RAD Current Patient Location: Accession/Order Number: [id number] Exam Date: 08/10/2024 16:15 Report Date: 08/11/2024 [...] Signed By: 08/11/24 1141 DD/ 1139 TD/TT: Lap Runner: [place] [address] XRay Report Signed Patient: EDILMA AGUDELO MR#: [id number] : 1965 Acct:[id number] Age/Sex: 58 / F ADM Date: 08/10/24 Loc: RAD Attending Dr: TAMMIE VILLA Ordering Physician: TAMMIE VILLA Date of Service: 08/10/24 Procedure(s): XR ribs RT 2V Accession Number(s): [id number] cc: TAMMIE VILLA [place] [id number] Patient Name: EDILMA AGUDELO MRN: [id number] date: 1965 Sex: F Assigned Patient Location: RAD Current Patient Location: Accession/Order Numb er: [id number] Exam Date: 08/10/2024 16:15 Report Date: 08/11/2024 [...] ri b abnormality. 2. Trace amount of l ingular infiltrates versus atelectasis. Electronically authe nticated by: OCTAVIANO MARIA Date: 08/11/2024 11:39 Dictated By: Octaviano Maria M.D. Signed By: 08/11/24 1141 DD/ 1139 TD/TT: Lap Runner: XR DEXA axial skeleton Reviewed date:06/10/2024 11:40:41 AM Interpretation: Performing Lab: Notes/Report: Source Facility: [place] [address] XRay Report Signed Patient: EDILMA AGUDELO MR#: [id number] : 1965 Acct:[id number] Age/Sex: 58 / F ADM Date: 06/05/24 Loc: [facility] Attending Dr: TAMMIE VILLA Ordering Physician: TAMMIE VILLA Date of Service: 06/05/24 Procedure(s): XR DEXA axial skeleton Accession Number(s): [id number] cc: TAMMIE VILLA [place] [address] Patient Name: EDILMA AGUDELO MRN: [id number] date: 1965 Sex: F Assigned Patient Location: [facility] Current Patient Location: Accession/Order Number: [id number] Exam Date: 06/05/2024 15:05 Report Date: 06/06/2024 [...] prevention and treatment of osteoporosis. Osteoporos Int. 2021;33(10):5602-8057. doi: 10.1007/e37579-258-16858-z. Epub 2021Nov 16. Erratum in: Osteoporos Int. 2021Feb 15;: PMID: 36880635; PMCID: [id number]. Electronically authenticated by: OCTAVIANO MARIA Date: 06/06/2024 06:35 Dictated By: Octaviano Maria M.D. Signed By: 06/06/2438 DD/ TD/TT: Lap Runner: [place] [address] XRay Report Signed Patient: EDILMA AGUDELO MR#: [id number] : 1965 Acct:[id number] Age/Sex: 58 / F ADM Date: 06/05/24 Loc: RAD Attending Dr: TAMMIE VILLA Ordering Physician: TAMMIE VILLA Date of Service: 06/05/24 Procedure(s): XR DEX A axial skeleton Accession Number(s): [id number] cc: TAMMIE VILLA [place] [id number] Patient Name: EDILMA AGUDELO MRN: [id number] date: 1965 Sex: F Assigned Patient Location: [facility] Current Patient Location: Accession/Order Numb er: [id number] Exam Date: 15:05 Report Date: 06/06/2024 06:35 At the request of: TAMMIE VILLA Procedure: XR DEXA a xial skeleton EXAMINATION: XR DEXA axial skeleton HISTORY: Osteopenia COMPARISON: DEXA bon e densitometry 03/21/2018 TECHNIQUE: Dual-ener gy X-ray absorptiometry (DXA) was performed. FINDINGS: SPINE ANALYSIS: Average bone mineral density is 0.926 g/cm2. T-score (standard de viation relative to young adult mean): -2.1 . -0.7% change since prior study. HIP ANALYSIS: Lowest bone mineral density is within the left femoral neck, 0.72 g/cm2. T-score (standard de viation relative to young adult mean): -1.8 . -1.1% change since prior study. X R/XR DEXA axial skeleton IMPRESSION: World Health Organ[employer] ation Classification: Osteopenia - Moderate Fracture Risk FRAX: Cannot be calculated. Pharmacologic treatm ent recommendations * No uniform recomme ndation applies to all patients. Management plans must be individualized. * Consider initiatin g pharmacologic treatment in postmenopausal women and men >= 50 years of age w ho have the following: Primary fracture prevention: * T-score <= - 2.5 a t the femoral neck, total hip, lumbar spine, 33% radius (some uncertainty wi th existing data) by DXA. * Low bone mass (ost eopenia: T-score between - 1.0 and - 2.5) at the femoral neck or total hip by DXA with a 10-year hip fracture risk >= 3% or a 10-year major osteoporosis-r elated fracture risk >= 20% (i.e., clinical vertebral, [...] of the proximal humerus, pelvis, or distal fo rearm who do not have osteopenia or low BMD [12, 13]. Miroslava MS, Darci SL, Ralph KL, Sarai EM, Jung KG, AJ, Shelly ES. The clinician's guid e to prevention and treatment of osteoporosis. Osteoporos Int. 2021;33(10) :0000-5221. doi: 10.1007/i24039-954-85384-r. Epub 2021Nov 16. Erratum in: Oste oporos Int. 2021Feb 15;: PMID: 22395125; PMCID: [id number]. Electronically authe nticated by: OCTAVIANO MARIA Date: 06/06/2024 06:35 Dictated By: Octaviano Maria M.D. Signed By: 06/06/2438 DD/ TD/TT: Lap Runner: CT chest wo con Reviewed date:12/07/2024 02:13:29 PM Interpretation: Performing Lab: Notes/Report: Source Facility: [place] [address] CT Scan Report Signed Patient: EDILMA AGUDELO MR#: [id number] : 1965 Acct:[id number] Age/Sex: 59 / F ADM Date: 11/25/24 Loc: CT Attending Dr: TAMMIE VILLA Ordering Physician: TAMMIE VILLA Date of Service: 11/25/24 Procedure(s): CT chest wo con Accession Number(s): [id number] cc: TAMMIE VILLA [place] [address] Patient Name: EDILMA AGUDELO MRN: [id number] date: 1965 Sex: F Assigned Patient Location: CT Current Patient Location: CT Accession/Order Number: [id number] Exam Date: 11/25/2024 15:36 Report Date: 11/25/2024 [...] Jr., D.O. 11/25/2024 3:39 PM Dictation Location: [place] [address] Electronically authenticated by: [id number] Y Date: 11/25/2024 15:39 Dictated By: Jayme Herrera M.D. Signed By: 11/25/24 1542 DD/ 1539 TD/TT: Lap Runner: [place] [address] CT Scan Report Signed Patient: EDILMA AGUDELO MR#: [id number] : 1965 Acct:[id number] Age/Sex: 59 / F ADM Date: 11/25/24 Loc: CT Attending Dr: TAMMIE VILLA Ordering Physician: TAMMIE VILLA Date of Service: 11/25/24 Procedure(s): CT chest wo con Accession Number(s): [id number] cc: TAMMIE VILLA [place] [id number] Patient Name: EDILMA AGUDELO MRN: [id number] date: 1965 Sex: F Assigned Patient Location: CT Current Patient Location: CT Accession/Order Numb er: [id number] Exam Date: 11/25/2024 15:36 Report Date: 11/25/2024 15:39 At the request of: TAMMIE VILLA Procedure: CT chest wo con CT CHEST WITHOUT IV CONTRAST: CLINICAL HISTORY: Pu lmonary Nodules COMPARISON: CT chest 11/11/[address] 10/14/2021 TECHNIQUE: Spiral im ages were obtained through the chest without IV contrast. This CT exam was per formed using one or more following dose reduction techniques: Automate d exposure control, adjustment of the mA and/or kV according to patient size, or use of iterative reconstruction technique. FINDINGS: Mediastinum:13 mm no dule right lobe of the thyroid gland. Thoracic aorta appears normal in ca liber. Pulmonary trunk appears nondilated. No pleural effusion or lymphade nopathy. The esophagus is grossly unremarkable. Moderate-sized hiatal hernia. Lungs:No consolidati on pneumothorax or pleural [...] Jr., D.O. 11/25/2024 3:39 PM Dictation Location: [place] [address] Electronically authe nticated by: [id number] Y Date: 11/25/2024 15:39 Dictated By: Jayme Grey i, M.D. Signed By: 11/25/24 1542 DD/ 1539 TD/TT: Lap Runner: MR thoracic spine wo con Reviewed date:08/31/2024 08:16:42 AM Interpretation: Performing Lab: Notes/Report: Source Facility: [place] [address] Magnetic Resonance Report Signed Patient: EDILMA AGUDELO MR#: [id number] : 1965 Acct:[id number] Age/Sex: 58 / F ADM Date: 08/28/24 Loc: MRI Attending Dr: Emeterio CAMACHO Ordering Physician: Emeterio Escalante Date of Service: 08/28/24 Procedure(s): MR thoracic spine wo con Accession Number(s): [id number] cc: TAMMIE VILLA ; Emeterio Escalante [place] [address] Patient Name: EDILMA AGUDELO MRN: [id number] date: 1965 Sex: F Assigned Patient Location: MRI Current Patient Location: MRI Accession/Order Number: [id number] Exam Date: 08/28/2024 06:45 Report Date: 08/28/2024 [...] Dictated By: Blaise Lutz M.D. Signed By: 08/28/24 0835 DD/ 0832 TD/TT: Lap Runner: [place] [address] Magnetic Resonance Report Signed Patient: EDILMA AGUDELO MR#: [id number] : 1965 Acct:[id number] Age/Sex: 58 / F ADM Date: 08/28/24 Loc: MRI Attending Dr: Emeterio CAMACHO Ordering Physician: Emeterio Escalante Date of Service: 08/28/24 Procedure(s): thclayton jaime spine wo con Accession Number(s): [id number] cc: TAMMIE VILLA ; Emeterio Escalante [address] [address] Patient Name: EDILMA AGUDELO MRN: [id number] date: 1965 Sex: F Assigned Patient Location: MRI Current Patient Location: MRI Accession/Order Numb er: [id number] Exam Date: 08/28/2024 06:45 Report Date: 08/28/2024 [...] There is a 20% anterior wedge compression fr acture of the T4 vertebral body with heterogeneous signal including increased STIR signal consistent with an acute fracture. There is likely fracture plan e along the posterior margin extending to the right pedicle but not definitively into the pedicle. No displacement of the fracture fragment or retropulsion. Inc reased signal identified in the T5 vertebral body without STIR signal likely r epresenting a chronic injury or Modic 2 change DISCS: No significan t disc/facet abnormality, spinal stenosis, or foraminal stenosis. PARASPINAL AREA: No visible mass. OTHER: Negative. No abnormal contrast enhancement. M R/MR thoracic spine wo con IMPRESSION: Acute 20% T4 wedge c ompression fracture Electronically authe nticated by: BLAISE LUTZ Date: 08/28/2024 08:32 Dictated By: Blaise Lutz M.D. Signed By: 08/28/24834 DD/ 1 TD/TT: Lap Runner: XR foot LT min 3V (Not yet r eviewed by provider) Interpretation: Performing Lab: Notes/Report: Source Facility: [place] [address] [place] [address] XRay Report Signed Patient: EDILMA AGUDELO MR#: [id number] : 1965 Acct:[id number] Age/Sex: 58 / F ADM Date: 04/09/24 Loc: EC Attending Dr: Joaquin Montanez Ordering Physician: Joaquin Montanez Date of Service: 04/09/24 Procedure(s): XR foot LT min 3V Accession Number(s): [id number] cc: TAMMIE VILLA ; Joaquin Montanez [place] [id number] Patient Name: EDILMA AGUDELO MRN: [id number] date: 1965 Sex: F Assigned Patient Location: Current Patient Location: Accession/Order Number: [id number] Exam Date: 04/09/2024 15:24 Report Date: 04/10/2024 [...] Signed By: 04/10/24 1257 DD/ 1255 TD/TT: Lap Runner: [place] [address] XRay Report Signed Patient: EDILMA AGUDELO MR#: [id number] : 1965 Acct:[id number] Age/Sex: 58 / F ADM Date: 04/09/24 Loc: Attending Dr: Joaquin Montanez Ordering Physician: Joaquin Montanez Date of Service: 04/09/24 Procedure(s): XR foot LT min 3V Accession Number(s): [id number] cc: TAMMIE VILLA ; Joaquin Montanez [address] [id number] Patient Name: EDILMA AGUDELO MRN: [id number] date: 1965 Sex: F Assigned Patient Location: Current Patient Location: Accession/Order Numb er: [id number] Exam Date: 04/09/2024 15:24 Report Date: 04/10/2024 [...] LT min 3V IMPRESSION: Degenerative changes Electronically authe nticated by: BLAISE LUTZ Date: 04/10/2024 12:55 Dictated By: Blaise Lutz M.D. Signed By: 04/10/24 1257 DD/ 1255 TD/TT: Lap Runner: XR thoracic spine 3V Reviewed date:08/11/2024 03:30:24 PM Interpretation: Performing Lab: Notes/Report: Source Facility: [place] [address] XRay Report Signed Patient: EDILMA AGUDELO MR#: [id number] : 1965 Acct:[id number] Age/Sex: 58 / F ADM Date: 08/10/24 Loc: RAD Attending Dr: TAMMIE VILLA Ordering Physician: TAMMIE VILLA Date of Service: 08/10/24 Procedure(s): XR thoracic spine 3V Accession Number(s): [id number] cc: TAMMIE VILLA [place] [address] Patient Name: EDILMA AGUDELO MRN: [id number] date: 1965 Sex: F Assigned Patient Location: [facility] Current Patient Location: [facility] Accession/Order Number: [id number] Exam Date: 08/10/2024 16:15 Report Date: 08/11/2024 [...] Signed By: 08/11/24 1144 DD/ 1142 TD/TT: Lap Runner: [place] [address] XRay Report Signed Patient: EDILMA AGUDELO MR#: [id number] : 1965 Acct:[id number] Age/Sex: 58 / F ADM Date: 08/10/24 Loc: [facility] Attending Dr: TAMMIE VILLA Ordering Physician: TAMMIE VILLA Date of Service: 08/10/24 Procedure(s): XR tho racic spine 3V Accession Number(s): [id number] cc: TAMMIE VILLA [place] [address] Patient Name: EDILMA AGUDELO MRN: [id number] date: 1965 Sex: F Assigned Patient Location: [facility] Current Patient Location: [facility] Accession/Order Numb er: [id number] Exam Date: 08/10/2024 16:15 Report Date: 08/11/2024 11:42 At the request of: TAMMIE VILLA Procedure: XR thoracic spine 3V EXAMINATION: XR thor acic spine 3V HISTORY: back pain M54.9 . [...] compression fracture of T4. 2. Stable mild degen erative changes. Electronically authe nticated by: OCTAVIANO AMRIA Date: 08/11/2024 11:42 Dictated By: Octaviano Maria M.D. Signed By: 08/11/24 1144 DD/ 1142 TD/TT: Lap Runner: [id number], Flu A+B IH (Not ye t reviewed by provider) Interpretation: Performing Lab: Notes/Report: COVID - FLU A - FLU B - Control + NM jarek perf SPECT rest str Reviewed date:02/16/2025 09:19:10 AM Interpretation: Performing Lab: Notes/Report: Source Facility: [place] [address] Nuclear Medicine Report Signed Patient: EDILMA AGUDELO MR#: [id number] : 1965 Acct:[id number] Age/Sex: 59 / F ADM Date: 02/12/25 Loc: NM Attending Dr: ELIZABETH GALLARDO Ordering Physician: ELIZABETH GALLARDO Date of Service: 02/12/25 Procedure(s): NM jarek perf SPECT rest str Accession Number(s): [id number] cc: TAMMIE VILLA ; ELIZABETH GALLARDO Patient Name: EDILMA AGUDELO MR#: [id number] : 1965 Exam Date: 02/12/2025 Ordering Doctor: DR ELIZABETH GALLARDO M.D. RADIOLOGY REPORT PROCEDURE: NM JAREK PERF SPECT REST STR COMPARISON: None. INDICATIONS: SHORTNESS OF BREATH, ABNORMAL EKG TECHNIQUE: Exam Description: Stress/Rest one day protocol gated SPECT Rest Imagin. 10.3 mCi Tc-99m Cardiolite IV on 02/12/2025 Stress Imaging 31.1 mCi Tc-99m Cardiolite IV on 02/12/2025 Exercise Protocol: Chema Heart Rate (bpm): Rest: 74 Max: 144 PMHR: 89 Blood Pressure: Rest: 138/80 Max: 156/84 Exercise Time: Minutes: 5 Seconds: 21 Stage Reached: Stage: 2 Mets 7.0 Symptoms: Rest and peak stress ECG findings were pending, and the exercise portion of the study was pending per attending physician [facility]. For more details, please see separate cardiac stress test report. FINDINGS: QUALITY OF STUDY: Adequate PERFUSION DEFECT: LOCATION: Anterolateral SIZE: Moderate SEVERITY: Mild TYPE: Reversible WALL MOTION: Normal wall motion LV SIZE: 126 mL. TID / TCD: 0.8 LVEF: Calculated EF 60%. SUMMARY: Myocardial perfusion imaging study is abnormal CONCLUSION: 1. Myocardial perfusion is abnormal with soft tissue attenuation 2. An anterior reversible perfusion defect is seen suggestive of ischemia 3. Global left ventricular systolic function is normal 4. No evidence of significant transient ischemic dilatation Dictated by: Leonardo Guidry M.D. on 02/16/2025 at 09:05 Approved by: Leonardo Guidry M.D. on 02/16/2025 at 09:09 Dictated By: Leonardo Guidry M.D. Signed By: 02/16/25908 DD/ 8 TD/TT: Lap Runner: [place] [address] Nuclear Medicine Report Signed Patient: EDILMA AGUDELO MR#: [id number] : 1965 Acct:[id number] Age/Sex: 59 / F ADM Date: 02/12/25 Loc: NM Attending Dr: ELIZABETH GALLARDO Ordering Physician: ELIZABETH GALLARDO Date of Service: 02/12/25 Procedure(s): NM jarek perf SPECT rest str Accession Number(s): [id number] cc: TAMMIE VILLA ; ELIZABETH GALLARDO Patient Name: EDILMA AGUDELO MR#: [id number] : 1965 Exam Date: 02/12/2025 Ordering Doctor: DR ELIZABETH GALLARDO M.D. RADIOLOGY REPORT PROCEDURE: NM JAREK PE RF SPECT REST STR COMPARISON: None. INDICATIONS: SHORTNE SS OF BREATH, ABNORMAL EKG TECHNIQUE: Exam Description: St ress/Rest one day protocol gated SPECT Rest Imagin. 10.3 mCi Tc-99m Card iolite IV on 02/12/2025 Stress Imaging 31.1 mCi Tc-99m Cardiolite IV on 02/12/2025 Exercise Protocol: Chema Heart Rate (bpm): Re st: 74 Max: 144 PMHR: 89 Blood Pressure: Res t: 138/80 Max: 156/84 Exercise Time: Minut es: 5 Seconds: 21 Stage Reached: Stage : 2 Mets 7.0 Symptoms: Rest and peak stress ECG findings were pending, and the exercise portion of the study was pendin g per attending physician [facility]. For more details, please see separate cardiac stress test report. FINDINGS: QUALITY OF STUDY: Adequate PERFUSION DEFECT: LOCATION: Anterolateral SIZE: Moderate SEVERITY: Mild TYPE: Reversible WALL MOTION: Normal wall motion LV SIZE: 126 mL. TID / TCD: 0.8 LVEF: Calculated EF 60%. SUMMARY: Myocardial perfusion imaging study is abnormal CONCLUSION: 1. Myocardial perfus ion is abnormal with soft tissue attenuation 2. An anterior rever sible perfusion defect is seen suggestive of ischemia 3. Global left ventr icular systolic function is normal 4. No evidence of si gnificant transient ischemic dilatation Dictated by: Leonardo abel M.D. on 02/16/2025 at 09:05 Approved by: Leonardo abel M.D. on 02/16/2025 at 09:09 Dictated By: Leonardo Guidry M.D. Signed By: 02/16/25908 DD/ 8 TD/TT: Lap Runner: ARMINDA echo doppler complete Reviewed date:12/24/2024 09:30:26 AM Interpretation: Performing Lab: Notes/Report: Source Facility: [place] [address] Cardiology Report Signed Patient: EDILMA AGUDELO MR#: [id number] : 1965 Acct:[id number] Age/Sex: 59 / F ADM Date: 12/23/24 Loc: CARD Attending Dr: TAMMIE VILLA Ordering Physician: TAMMIE VILLA Date of Service: 12/23/24 Procedure(s): CA echo doppler complete Accession Number(s): [id number] cc: TAMMIE VILLA Patient Name: EDILMA AGUDELO MR#: [id number] : 1965 Exam Date: 12/23/2024 Ordering Doctor: TAMMIE VILLA [facility] ECHOCARDIOGRAM REPORT PROCEDURE: CA ECHO DOPPLER [...] (Peak Vince): 2.01 cm2, 2.01 cm2 Deceleration [place]: 2.24 m/s2 Pressure Half-Time: 475.45 ms Peak [...] GALLARDO Signed By: 12/23/241857 DD/ 56 TD/TT: Lap Runner: [place] [address] Cardiology Report Signed Patient: EDILMA AGUDELO MR#: [id number] : 1965 Acct:[id number] Age/Sex: 59 / F ADM Date: 12/23/24 Loc: CARD Attending Dr: TAMMIE VILLA Ordering Physician: TAMMIE VILLA Date of Service: 12/23/24 Procedure(s): CA ech o doppler complete Accession Number(s): [id number] cc: TAMMIE VILLA Patient Name: EDILMA AGUDELO MR#: [id number] : 1965 Exam Date: 12/23/2024 Ordering Doctor: ALVINO VILLA [facility] ECHOCARDIOGRAM REPORT PROCEDURE: CA ECHO D OPPLER COMPLETE INDICATIONS: Hypertension COMPARISON: None. DESCRIPTION: COMPLET E ECHOCARDIOGRAM Real-time transthoracic echocardiography wit h 2D, M-mode, spectral and color flow Doppler performed. QUALITY: Technical q uality was good. LEFT VENTRICLE: Norm al chamber size. Normal left ventricular wall thickness. Systolic function is at the lower limits of normal. LV EF: Low normal le ft ventricular ejection fraction, (50%). DIASTOLIC: Normal di astolic function. ATRIAL SEPTUM: LEFT ATRIUM: Normal chamber size. RIGHT ATRIUM: Normal chamber size. RIGHT VENTRICLE: Nor mal chamber size. Normal systolic function. TRICUSPID VALVE: Nor mal mobility and thickness. No stenosis with trivial regurgitation. No ev idence of pulmonary hypertension. RVSP 27 mmHg MITRAL VALVE: Meghan l mobility and thickness. No evidence of mitral valve stenosis. There is n o mitral annular calcification. Trivial mitral regurgitation. Redun dant chord is noted. AORTIC VALVE: No vis ible sclerosis. Normal leaflet mobility. No evidence of aortic valve sten osis. Mild aortic regurgitation. AORTIC ROOT: Normal diameter and appearance, measuring 3.4 cm. Ascending aorta is normal in s ize, measuring 2.9 cm. PULMONIC VALVE: Not well visualized. No stenosis. No regurgitation. PERICARDIUM: No evid ence of pericardial effusion. IVC: Collapses with inspirations. IVC is normal in size. PLEURA: CONCLUSION: 1. Normal left ventr icular size with low normal systolic function. LVEF is estimated at 50%. 2. Normal right vent ricular size and systolic function. 3. Normal diastolic [...] (Peak Vince): 2.01 cm2, 2.01 cm2 Deceleration [place]: 2.24 m/s2 Pressure Half-Time: 475.45 ms Peak Velocity(Antegr chica Flow): 2.00 m/s Peak Gradient(Antegr chica Flow): 15.92 mm[Hg] Mean Velocity(Antegr chica Flow): 1.47 m/s Mean Gradient(Antegr chica Flow): 9.56 mm[Hg] Velocity Time Integr al: 44.06 cm Tricuspid Valve Peak Velocity (Regur gitant Flow): 2.45 m/s Pulmonic Valve Peak Velocity: 1.02 m/s Peak Gradient: 4.19 mm[Hg] Right Atrium Right Atrium Systoli c Pressure: 39.71 ml, 39.71 ml Dictated by: Elizabeth Gallardo M.D. on 12/23/2024 at 18:50 Approved by: Elizabeth Gallardo M.D. on 12/23/2024 at 18:56 Dictated By: ELIZABETH GALLARDO Signed By: 12/23/241857 DD/ 56 TD/TT: Lap Runner: Reason For Referral Diagnosis 1 Abnormal findings on diagnostic imaging of other specified body structures (R93.89) Referral Organization [facility] Referring Provider First Name Tammie Referring Provider Last Name Scout [facility] Pj Ceballos) Referred Provider Specialty Orthopedic S urgery Referral Priority Routine Diagnosis 1 Compression fracture of body of thoracic vertebra (M48.54XA) Referral Organization [facility] Referring Provider First Name Tammie Referring Provider Last Name Scout Referring Provider [facility] courtney Referred Provider Mil Seo Referred Provider Specialty Orthopedic S urgery Referral Priority Routine Diagnosis 1 Mitral valve regurgi tation (I34.0) Referral Organization [facility] Referring Provider First Name Tammie Referring Provider Last Name Scout [facility] Special[facility] Referral Priority [...] Problem Status W/U Status Risk Notes Problem 140430590 Gastro-esophagea l reflux disease without esophagitis (K21.9) Active confirmed Problem Acute sinusitis (25386199) Acute sinusitis, unspecified (J01.90) Active confirmed Problem [id number] Primary osteoarthritis, left ankle and foot (M19.072) Active confirmed Problem Chest pain (95883124) Chest pain, unspecified (R07.9) Active confirmed Problem Hyperlipidemia (93903719) Hyperlipidemia (E78.5) Active confirmed Problem Gastroesophageal reflux disease (025740485) GERD (gastroesophageal reflux disease) (K21.9) Active confirmed Problem Hypertension (10546836) HTN (hypertension) (I10) Active confirmed Problem Neck pain (19516311) Neck pain (M54.2) Active confirmed Problem Depression (507836844) Depression (F32.9) Active confirmed Problem Osteopenia (361927487) Osteopenia (M85.80) Active confirmed Problem Shoulder pain (52999302) Shoulder pain (M25.519) Active confirmed Problem Arthralgia of the pelvic region and thigh (589704182) Hip pain, right (M25.551) Active confirmed Problem Pain in limb (09686451) Foot pain, left (M79.672) Active confirmed Problem Pathological fracture of vertebra (522134589) Compression fracture of body of thoracic vertebra (M48.54XA) Active confirmed Problem Mitral valve regurgitation (34013276) Mitral valve regurgitation (I34.0) Active confirmed Problem Weight gain (768120641) Weight gain (R63.5) Active confirmed Problem Well adult (003515229) Well adult (Z00.00) Active confirmed Problem Dysphagia (47216515) Dysphagia (R13.10) Active confirmed Problem Cellulitis (879517804) Cellulitis (L03.90) Active confirmed Problem Aortic valve disorder (8585211) Mild aortic regurgitation (I35.1) Active confirmed Problem Multiple pulmonary nodules (157930708) Pulmonary nodules (R91.8) Active confirmed Problem Chest wall pain (670409877) Chest wall pain (R07.89) Active confirmed Problem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
[2025-03-06 07:42] LABS: Hematocrit 37.2 % (36.0-48.0); Hemoglobin 12.6 g/dL (12.0-16.0); Immature Granulocytes Abs Auto 0.01 10^3/uL (0.00-0.03); Immature Granulocytes Pct Auto 0.2 % (0.0-0.5); Lymphocytes Absolute Auto 1.5 10^3/uL (1.2-3.8); Mean Corpuscular HGB Conc 33.9 g/dL (29.9-35.2); Mean Corpuscular Hemoglobin 29.6 pg (26.7-34.0); Mean Corpuscular Volume 87.5 fL (81.0-99.0); Platelet Count 283 10^3/uL (150-450); Red Blood Count 4.25 10^6/uL (4.20-5.40); White Blood Count 5.2 10^3/uL (4.0-11.0)
[2025-03-06 07:52] LABS: Alanine Aminotransferase 30 U/L (14-59); Albumin Globulin Ratio 1.1; Albumin Level 4.1 g/dL (3.4-5.0); Alkaline Phosphatase 85 U/L (46-116); Anion Gap 13.7; Aspartate Amino Transferase 20 U/L (15-37); Blood Urea Nitrogen 21.0 mg/dL (7.0-18.0); Calcium 9.5 mg/dL (8.5-10.1); Carbon Dioxide 24.5 mmol/L (21.0-32.0); Chloride 104 mmol/L (98-107); Estimated GFR (African America >60 (>=60 mL/min/1.73m^2); Estimated GFR (Non-African Ame >60 (>=60 mL/min/1.73m^2); Globulin 3.9 g/dL; Glucose 103 mg/dL (74-106); Potassium 4.2 mmol/L (3.5-5.1); Sodium 138 mmol/L (136-145); Total Protein 8.0 g/dL (6.4-8.2)
[2025-03-06 08:01] LABS: Cholesterol 194 mg/dL (<=200); Free T3 2.35 pg/mL (2.18-3.98); HDL Cholesterol 66 mg/dL (40-60); Thyroid Stimulating Hormone 1.767 uIU/mL (0.358-3.740); Triglycerides 106 mg/dL (<=150); VLDL CHOLESTEROL 21.2 mg/dL
[2025-03-06 08:16] LABS: Iron 55.0 ug/dL (50.0-170.0)
== END 2025-03-06 07:01 | disposition home or self-care (01) ==
PROVIDERS: PCP Nurse Practitioner Family; Visit Provider Nurse Practitioner Family
DX: Z00.00 Encounter for general adult medical examination without abnormal findings (principal)
CPT/HCPCS: 36415; 80053; 80061; 82306; 83036; 83525; 83540; 84436; 84443; 84481; 85025